=== PATIENT | female | born 1975 | race Caucasian/White ===

== ENCOUNTER 2020-10-30 13:53 | Outpatient (REF) | payer MEDICARE, MEDICAID, SELFPAY ==
--- NOTE | 2020-10-30 13:58 | MM_ITS ---
EXAMINATION: MM SCREENING DIGITAL BREAST TOMOSYNTHESIS, BILATERAL CLINICAL INFORMATION: Screening. Asymptomatic. The lifetime risk of breast cancer based on the Tyrer-Cuzick Model is 10%. COMPARISON: Mammography: 08/21/2019, 07/22/2018, 06/25/2017 (baseline); ultrasound left breast 07/03/2017 TECHNIQUE: Digital breast tomosynthesis is performed in both the craniocaudal and mediolateral oblique views along with computer-aided detection (CAD). Synthesized 2D images are generated from the tomosynthesis. FINDINGS: The breasts are heterogeneously dense, which may obscure small masses (ACR BI-RADS breast composition Category c). There are no significant masses, abnormal calcifications, or other abnormalities. There is fine fibronodular parenchymal pattern similar to prior exams. No significant changes from prior studies. MM/MM tomosynthesis screening BI IMPRESSION: No mammographic evidence of malignancy. ASSESSMENT: BI-RADS 1: Negative RECOMMENDATION: Routine annual mammography screening. This patient's information was entered into a reminder system with a target due date for their next mammogram.
== END 2020-10-30 13:54 | disposition home or self-care (01) ==
LOC: HO.MAMMO 13:53
PROVIDERS: PCP Internal Medicine; Visit Provider Internal Medicine
DX: Z12.31 Encounter for screening mammogram for malignant neoplasm of breast (principal)
CPT/HCPCS: 77063; 77067

== ENCOUNTER 2020-12-15 06:34 | Emergency (ER) | payer MEDICARE, MEDICAID, SELFPAY ==
--- NOTE | ~2020-12-15 | XR_ITS ---
EXAMINATION: XR LUMBOSACRAL SPINE CLINICAL INFORMATION: Back pain COMPARISON: None TECHNIQUE: Three views of the lumbosacral spine. FINDINGS: Bone alignment is normal. No fracture or dislocation is seen. Disc spaces are normal. There is lower lumbar spine facet arthritis. XR/XR lumbar spine 2-3V IMPRESSION: Lower lumbar spine facet arthritis.
--- NOTE | ~2020-12-15 | CT_ITS ---
EXAMINATION: CT HEAD WITHOUT CONTRAST CLINICAL INFORMATION: Headache and dizziness COMPARISON: MRI of February 19, 2019 TECHNIQUE: Contiguous axial imaging was performed from the skull base to vertex without intravenous administration of contrast. This CT examination was performed using dose optimization techniques as appropriate, variously including the following: *Automated exposure control *Adjustment of mA and/or kV according to patient size (this includes techniques or standardized protocols for targeted exams where dose is matched to indication/reason for exam; i.e. extremities or head) *Use of iterative reconstruction technique DLP: 712 mGy-cm FINDINGS: There is no evidence of acute intracranial hemorrhage or territorial infarction. No abnormal mass effect or midline shift is seen. Murray to white matter differentiation is well preserved. No extra-axial fluid collections are identified. The ventricles are normal in size. There is no abnormal attenuation within the brain parenchyma. The osseous structures and soft tissues are normal. The mastoid air cells and visualized portions of the paranasal sinuses are well aerated. CT/CT head/brain wo con IMPRESSION: No acute intracranial pathology.
[2020-12-15 07:42] VITALS: BP 153/78; PULSE 64; RESP 16; TEMP 36.8; O2SAT 100; BMI 32.0
--- NOTE | 2020-12-15 08:07 | ED_ITS ---
HPI - Headache General Chief Complaint: Headache Stated Complaint: HEADACHE/DIZZINESS Time Seen by Provider: 12/15/20 08:04 Source: patient and family (Mother) Mode of arrival: ambulatory Limitations: no limitations History of Present Illness HPI Narrative: 45 years old female with developmental delay, patient also with known chronic history of headache, patient has been seen by neurologist at [facility] Dr. Powell), patient presented with her mom for headache and dizziness for the past 2 days, mother described it as has been constant, no fever or chills. Records from both [facility] and [facility] requested. Related Data Allergies Allergy/AdvReac Type Severity Reaction Status Date / Time Sulfa (Sulfonamide Allergy Severe HIVES Unverified 07/15/20 15:15 Antibiotics) [SULFA (SULFONAMIDE ANTIBIOTICS)] amoxicillin Allergy Unknown Verified 06/11/14 00:00 potassium [Potassimin] Allergy Unknown Verified 06/11/14 00:00 sulfamethoxazole Allergy Unknown UNKNOWN Unverified 07/15/20 15:15 [From SULFATRIM] trimethoprim [From SULFATRIM] Allergy Unknown UNKNOWN Unverified 07/15/20 15:15 From AUGMENTIN Allergy Severe HIVES Uncoded 07/15/20 15:15 From Augmentin Allergy Severe HIVES Uncoded 07/15/20 15:15 Review of Systems Review of Systems: All other systems are reviewed and are negative Constitutional: Reports as per HPI and Reports no additional constitutional complaints Eyes: Reports as per HPI and Reports no additional eye complaints Reports system reviewed and no additional complaints, except as documented Cardiovascular: Reports as per HPI and Reports no additional cardiovascular complaints Respiratory: Reports as per HPI and Reports no additional respiratory complaints Gastrointestinal: Reports as per HPI and Reports no additional gastrointestinal complaints Genitourinary: Reports no additional female genitourinary complaints Musculoskeletal: Reports no additional musculoskeletal complaints Skin/Breast: Reports system reviewed and no additional complaints, except as docu Psychiatric: Reports no additional psychiatric complaints Endocrine: Reports no additional endocrine complaints Hematologic/Lymphatic: Reports no additional hematologic/lymphatic complaints Allergic/Immunologic: Reports no additional allergic/immunologic complaints Reports system reviewed and no additional complaints, except as documented and Reports Abnormal speech [facility] Past Medical History Medical History Head ache [place] (hard of hearing) Mentally challenged Tourette syndrome Social History Social History Alcohol intake: never Smoking Status: Never smoker Use of substances other than those prescribed or required for medical reasons: No Advance Directives: Yes Advance Directives Information Provided: Yes Advance Directives on File: No Physical Exam Vital Signs: Vital Signs: Last Vital Signs Temp 98.3 F 12/15/20 07:42 Pulse 64 12/15/20 07:42 Resp 16 12/15/20 07:42 BP 153/78 H 12/15/20 07:42 Pulse Ox 100 12/15/20 07:42 Body Mass Index 32.0 Vital signs have been reviewed as appeared to be correct. Blood pressure in the high range. Heart rate normal. Respiration rate normal. Temperature normal. Oxygen saturation normal. Appearance: No acute distress. Head: Normal external exam. Normocephalic. Atraumatic. No Joe signs noted. No raccoon eyes noted Eyes: PERRLA. EOMI. Conjunctiva and sclera normal. Eyelids normal. ENT: TM's Normal. Pharynx normal. Uvula midline. Moist mucous membranes. No trismus noted. No drooling noted. No muffled voice noted. Neck: Normal inspection. Neck supple. FROM. No adenopathy. Thyroid Normal. No meningeal signs. No neck mass noted. CVS: Normal heart rate and rhythm. Heart sound normal. No murmurs noted. Pulses normal throughout. Respiratory: No respiratory distress. Painless inspiration. Breath sounds normal. No wheezes/rales/rhonchi noted. Chest nontender. No accessory muscle usage noted or decreased air movement noted. Abdomen: Soft and nontender. Bowel sounds normal in all 4 quadrants. No distention noted. No organomegaly noted. No visible injury noted. Back: No CVA tenderness. Full range of motion noted. Skin: Skin warm and dry. Normal skin color. Normal skin turgor. No rashes/lesions/lacerations noted. Extremities: No lower extremity edema. Extremities exhibit normal range of motion. Extremities nontender. Neuro: Alert, No motor deficit. No sensory deficit. Reflexes normal. Course Course Course Narrative: Assessment and plan. 45-year-old with developmental delay, chronic headaches, patient has been following with neurologist, she will see another neurologist in [place] for her condition, presented with headache and dizziness, patient improved after IV f luid and IV morphine 1.5 mg. Mother was instructed to follow-up with her neurologist. Records from [facility] was requested still did not hear back from them. At this point will discharge patient to follow-up with PCP/Neurology. MDM - Headache Lab Data Attestation: I reviewed the patient's lab results. Result diagrams: 12/15/20 08:20 12/15/20 08:20 Labs: Lab Results 12/15/20 12/15/20 Range/Units 08:20 08:20 WBC 11.3 H (4.8-10.8) X10*3/uL RBC 3.99 L (4.20-5.50) X10*6/uL Hgb 12.4 (12.0-16.0) g/dl Hct 35.4 L (37-47) % MCV 88.7 (80-98) fL MCH 31.1 (27.0-33.0) pg MCHC 35.0 (31.0-35.0) g/dl RDW 12.2 (11.0-16.0) % Plt Count 341 (160-400) X10*3/uL MPV 8.8 L (9.4-12.3) fL Immature Gran % (Auto) 0.6 H (0.0-0.4) % Neut % (Auto) 75.9 H (45-73) % Lymph % (Auto) 16.4 L (20-40) % [place] % (Auto) 4.9 (2-11) % Eos % (Auto) 1.8 (0-4) % Baso % (Auto) 0.4 (0-2) % Lymph # (Auto) 1.9 (1.2-4.9) X10*3/uL [place] # (Auto) 0.6 (0.1-1.2) X10*3/uL Eos # (Auto) 0.2 (0.0-0.4) X10*3/uL Baso # (Auto) 0.0 (0.0-0.2) X10*3/uL Abs Immat Gran (auto) 0.07 H (0.00-0.03) X10*3/uL Absolute Neuts (auto) 8.6 H (2.0-8.3) X10*3/uL Absolute Nucleated RBC 0.000 (0.0-0.012) X10*3/uL Nucleated RBC % (auto) 0.0 (0.0-0.2) /100WBC Sodium 138 (135-145) mmol/L Potassium 3.9 (3.3-5.1) mmol/L Chloride 105 (96-108) mmol/L Carbon Dioxide 26 (22-29) mmol/L Anion Gap 11 L (12-20) BUN 12 (9-16) mg/dL Creatinine 0.84 (0.5-1.4) mg/dL Estim Creat Clear Calc 83.4 Estimated GFR > 60 Random Glucose 102 (60-115) mg/dL Calcium 8.7 (8.4-10.2) mg/dL Imaging Data CT scan - head: Radiologist's impression: No acute intracranial pathology. Discharge Plan Discharge Clinical Impression: Headache Qualifiers: Headache type: unspecified Headache chronicity pattern: chronic headache Intractability: not intractable Qualified Code(s): R51.9 - Headache, unspecified Patient Disposition: Home, Self-Care Instructions: General Headache (ED) Referrals: Amy Jonas MD [Primary Care Provider] - 2 days
[2020-12-15] MEDS: 0.9 % Sodium Chloride 1,000 ML 999 ML IVCONT (08:21)
[2020-12-15 08:24] LABS: MANUAL DIFF FLAG NO
[2020-12-15] MEDS: Morphine Sulfate 2 MG/ML CARTRIDGE 1 MG IVPUSH (08:25)
[2020-12-15 08:26] LABS: Basophils Percent Auto 0.4 % (0-2); Eosinophils Absolute Auto 0.2 X10*3/uL (0.0-0.4); Eosinophils Percent Auto 1.8 % (0-4); Hematocrit 35.4 % (37-47); Hemoglobin 12.4 g/dl (12.0-16.0); Imm Gran Abs Auto 0.07 X10*3/uL (0.00-0.03); Imm Gran Pct Auto 0.6 % (0.0-0.4); Lymphocytes Absolute Auto 1.9 X10*3/uL (1.2-4.9); Lymphocytes Percent Auto 16.4 % (20-40); Mean Corpuscular Hemoglobin 31.1 pg (27.0-33.0); Mean Corpuscular Volume 88.7 fL (80-98); Mean Platelet Volume 8.8 fL (9.4-12.3); Monocytes Absolute Auto 0.6 X10*3/uL (0.1-1.2); Monocytes Percent Auto 4.9 % (2-11); Neutrophils Absolute Auto 8.6 X10*3/uL (2.0-8.3); Neutrophils Percent Auto 75.9 % (45-73); Platelet Count 341 X10*3/uL (160-400); Red Blood Count 3.99 X10*6/uL (4.20-5.50); Red Cell Distribution Width 12.2 % (11.0-16.0); White Blood Count 11.3 X10*3/uL (4.8-10.8)
[2020-12-15 08:56] LABS: Anion Gap 11 (12-20); Blood Urea Nitrogen 12 mg/dL (9-16); Calcium 8.7 mg/dL (8.4-10.2); Carbon Dioxide 26 mmol/L (22-29); Chloride 105 mmol/L (96-108); Creatinine Clr Calc Pharmacy 83.4; Estimated Glomerular Filt Rate > 60; Glucose Random 102 mg/dL (60-115); Potassium 3.9 mmol/L (3.3-5.1); Sodium 138 mmol/L (135-145)
[2020-12-15] MEDS: Morphine Sulfate 2 MG/ML CARTRIDGE 0.5 MG IVPUSH (11:05)
== END 2020-12-15 11:18 | disposition home or self-care (01) ==
PROVIDERS: Emergency Provider Emergency Medicine; PCP Internal Medicine
DX: R51.9 Headache, unspecified (principal); M54.5 Low back pain; R62.50 Unspecified lack of expected normal physiological development in childhood
CPT/HCPCS: 36415; 70450; 72100; 80048; 85025; 96361; 96374; 96375; 99284; J2270

== ENCOUNTER 2020-12-18 07:41 | Outpatient (REF) | payer MEDICARE, MEDICAID, SELFPAY ==
[2020-12-18 09:23] LABS: Alanine Aminotransferase 13 U/L (0-31); Albumin Level 4.4 g/dL (3.5-5.0); Alkaline Phosphatase 102 U/L (39-117); Anion Gap 12 (12-20); Aspartate Amino Transferase 12 U/L (5-31); Bilirubin Total 0.5 mg/dL (0.0-1.0); Blood Urea Nitrogen 11 mg/dL (9-16); Calcium 9.4 mg/dL (8.4-10.2); Carbon Dioxide 27 mmol/L (22-29); Chloride 105 mmol/L (96-108); Estimated Glomerular Filt Rate > 60; Glucose Random 107 mg/dL (60-115); Potassium 4.5 mmol/L (3.3-5.1); Sodium 139 mmol/L (135-145)
[2020-12-18 09:32] LABS: Thyroid Stimulating Hormone 4.51 uIU/mL (0.32-4.0)
== END 2020-12-18 07:42 | disposition home or self-care (01) ==
LOC: HO.LAB 07:41
PROVIDERS: PCP Internal Medicine; Visit Provider Internal Medicine
DX: E03.8 Other specified hypothyroidism (principal)
CPT/HCPCS: 36415; 80053; 84443

== ENCOUNTER 2020-12-20 16:54 | Emergency (ER) | payer MEDICARE, MEDICAID, SELFPAY ==
--- NOTE | ~2020-12-20 | CT_ITS ---
EXAMINATION: CT ANGIOGRAM OF THE HEAD CT ANGIOGRAM OF THE NECK CLINICAL INFORMATION: Multiple syncopal episodes. COMPARISON: CT scan of the head 12/15/2020. TECHNIQUE: A noncontrast axial CT scan of the head was obtained. Test bolus series followed by intravenous administration 70 mL of Omnipaque 350. Helical imaging was performed in the axial plane from the mediastinum to the skull vertex. A delayed CT scan of the head was obtained. The degree of stenosis is based off NASCET criteria. The data was processed at the electroneurodiagnostic technologist workstation for generation of MIP images. Three-dimensional volume rendered reformatted images were also generated at an offline 3-D workstation. This CT examination was performed using dose optimization techniques as appropriate, variously including the following: *Automated exposure control *Adjustment of mA and/or kV according to patient size (this includes techniques or standardized protocols for targeted exams where dose is matched to indication/reason for exam; i.e. extremities or head) *Use of iterative reconstruction technique DLP: 2481 mGy-cm. FINDINGS: CT Head: There is no evidence of acute intracranial hemorrhage or territorial infarction. No abnormal mass-effect or midline shift is seen. Murray to white matter differentiation is well preserved. No extra-axial fluid collections are identified. There is no abnormal enhancement. The ventricles are normal in size. There is no abnormal attenuation within the brain parenchyma. The osseous structures and soft tissues are normal. The mastoid air cells and visualized portions of the paranasal sinuses are well-aerated. CTA Neck: There is a common origin of the left common carotid and brachiocephalic arteries, which is a normal variant. The great vessels of the neck are widely patent. The subclavian arteries appear normal bilaterally. The common carotid arteries have normal caliber. However, there is severe swallowing motion artifact in the region of the carotid bifurcations bilaterally. Distal to the artifact level of the internal carotid arteries are patent bilaterally. The origins of both vertebral arteries are well seen and appear normal. Both vertebral arteries are widely patent and demonstrate good opacification throughout their cervical course. The vertebral arteries are codominant. Nonvascular: The lung blanco are well-expanded bilaterally. The thyroid gland appears normal. There is no cervical lymphadenopathy. There is mild spondylosis at C4-C5, C5-C6 and C6-C7. CTA Head: In the anterior circulation, the distal internal carotid arteries within the neck appear normal. The intracranial internal carotid arteries and their bifurcations appear normal. The middle and anterior cerebral arteries bilaterally demonstrate normal caliber with no evidence of focal stenosis, aneurysm or vascular malformation. There is normal arborization of the middle cerebral artery branches. The anterior communicating artery is normal. In the posterior circulation, the left vertebral artery is dominant. The vertebral arteries intradurally have normal caliber. The basilar artery appears normal. The posterior cerebral arteries have normal caliber. The venous sinuses opacify normally. CT/CT angio head neck IMPRESSION: CT head and neck: 1. There are no acute bleeds or territorial infarcts. 2. There are no masses or areas of abnormal enhancement. 2. The lung blanco are well-expanded. There is spondylosis in the cervical spine. CTA head and neck: 1. Evaluation of the carotid bifurcations is markedly suboptimal due to swallowing motion artifact. Elsewhere, the arterial structures in the neck appear normal. 2. Intracranially there are no focal stenoses, aneurysms or vascular malformations.
[2020-12-20 17:02] VITALS: BP 148/72; BP 155/75; PULSE 80; PULSE 88; RESP 18; TEMP 36.7; O2SAT 100; O2SAT 98; BMI 32.0
--- NOTE | 2020-12-20 17:17 | ED.SYNCOPE ---
HPI - Syncope General Chief Complaint: Syncope Stated Complaint: syncope Mode of arrival: ambulatory Limitations: other (Cognitive impairment) History of Present Illness HPI narrative: 45 years old female with developmental delay, chronic history of headache seen by neurologist at [facility] Dr. Powell, presents for a syncopal episode. This is the 2nd syncopal episode this week. Mother states that daughter was getting something out of the kitchen pantry, then sat down on the floor, her mother then left the room and when she returned back to the kitchen patient was laying on the floor. Mom feels that this was a syncopal episode, daughter cannot answer any questions secondary to developmental delay. Onset (ago): hour(s) (Within the hour arrival) Witnessed: No Context: at rest Injuries sustained associated with event: none Current symptoms: none and back to baseline History: previous syncopal episode Treatments prior to arrival: none Related Data Allergies Allergy/AdvReac Type Severity Reaction Status Date / Time Sulfa (Sulfonamide Allergy Severe HIVES Unverified 07/15/20 15:15 Antibiotics) [SULFA (SULFONAMIDE ANTIBIOTICS)] amoxicillin Allergy Unknown Verified 06/11/14 00:00 potassium [Potassimin] Allergy Unknown Verified 06/11/14 00:00 sulfamethoxazole Allergy Unknown UNKNOWN Unverified 07/15/20 15:15 [From SULFATRIM] trimethoprim [From SULFATRIM] Allergy Unknown UNKNOWN Unverified 07/15/20 15:15 From AUGMENTIN Allergy Severe HIVES Uncoded 07/15/20 15:15 From Augmentin Allergy Severe HIVES Uncoded 07/15/20 15:15 Review of Systems Review of Systems: Yes Unobtainable due to mental status PMFSH Past Medical History Attestation statement: The following information was validated with the patient. Source: old records reviewed Medical History Head ache [place] (hard of hearing) Mentally challenged Tourette syndrome Social History Social History Alcohol intake: never Smoking Status: Never smoker Advance Directives: No Advance Directives Information Provided: No Physical Exam Vital Signs: Vital Signs: Last Vital Signs Temp 98.1 F 12/20/20 17:02 Pulse 88 12/20/20 17:02 Resp 18 12/20/20 17:02 BP 155/75 H 12/20/20 17:02 Pulse Ox 100 12/20/20 17:02 Body Mass Index 32.0 Appearance: Alert. Oriented X3. No acute distress. Eyes: Pupils equal, round and reactive to light. ENT: Pharynx normal. Neck: Normal inspection. Neck supple. CVS: Normal heart rate and rhythm. Pulses normal. Respiratory: No respiratory distress. Breath sounds normal. Abdomen: Soft and nontender. Skin: Skin warm and dry. Normal skin color. Normal skin turgor. Extremities: No lower extremity edema. Neuro: No motor deficit. No sensory deficit. Gait upward but well-balanced Course Course Course Narrative: 45-year-old female presents with her 2nd episode of syncope this week. Had a CT scan on 12/15/20 with normal findings, full workup and labs were unremarkable. Patient does have chronic headaches, chronic scalp pain and is being followed by a neurologist at [facility]. The last 2 discharge instructions strongly suggested follow-up with Neurology, pending appointment later this week. This time as patient was an unwitnessed [id number] seizure activity will order CT A of head and neck as dry CT scan was negative. Will order CBC, Chem 7 and urinalysis. Labs are unremarkable. Urinalysis is negative. Plan of care is for patient to continue to keep appointment with outpatient Neurology. Detailed description of discharge instructions with mother. Verbalized understanding of and agrees to plan of care discharge home. MDM - Syncope MDM Narrative Medical decision making narrative: Seizure activity, fall Differential Diagnosis Differential diagnosis: Likely syncope due to orthostatic hypotension and dehydration Medical Records Attestation: I reviewed the patient's medical records. Lab Data Attestation: I reviewed the patient's lab results. Result diagrams: 12/20/20 17:40 12/20/20 17:40 Labs: Lab Results 12/20/20 12/20/20 12/20/20 Range/Units 17:40 17:40 17:40 WBC 12.4 H (4.8-10.8) X10*3/uL RBC 3.79 L (4.20-5.50) X10*6/uL Hgb 12.1 (12.0-16.0) g/dl Hct 33.8 L (37-47) % MCV 89.2 (80-98) fL MCH 31.9 (27.0-33.0) pg MCHC 35.8 H (31.0-35.0) g/dl RDW 12.3 (11.0-16.0) % Plt Count 350 (160-400) X10*3/uL MPV 8.9 L (9.4-12.3) fL Immature Gran % (Auto) 0.7 H (0.0-0.4) % Neut % (Auto) 70.9 (45-73) % Lymph % (Auto) 20.1 (20-40) % [place] % (Auto) 6.0 (2-11) % Eos % (Auto) 1.8 (0-4) % Baso % (Auto) 0.5 (0-2) % Lymph # (Auto) 2.5 (1.2-4.9) X10*3/uL [place] # (Auto) 0.8 (0.1-1.2) X10*3/uL Eos # (Auto) 0.2 (0.0-0.4) X10*3/uL Baso # (Auto) 0.1 (0.0-0.2) X10*3/uL Abs Immat Gran (auto) 0.09 H (0.00-0.03) X10*3/uL Absolute Neuts (auto) 8.8 H (2.0-8.3) X10*3/uL Absolute Nucleated RBC 0.000 (0.0-0.012) X10*3/uL Nucleated RBC % (auto) 0.0 (0.0-0.2) /100WBC Sodium 140 (135-145) mmol/L Potassium 4.6 (3.3-5.1) mmol/L Chloride 108 (96-108) mmol/L Carbon Dioxide 23 (22-29) mmol/L Anion Gap 14 (12-20) BUN 14 (9-16) mg/dL Creatinine 0.83 (0.5-1.4) mg/dL Estim Creat Clear Calc 84.3 Estimated GFR > 60 Random Glucose 116 H (60-115) mg/dL Calcium 9.0 (8.4-10.2) mg/dL Magnesium 2.0 (1.6-2.6) mg/dL Troponin I High Sens < 3.5 (<3.5-17.0) ng/L Urine Color Urine Appearance Urine pH (5.0-8.0) Ur Specific [place] (1.005-1.025) Urine Protein (NEG-TRACE) MG/DL Urine Glucose (UA) (NEG) MG/DL Urine Ketones (NEG) MG/DL Urine Blood (NEG) Urine Nitrite (NEG) Ur Leukocyte Esterase (NEG) Coronavirus (PCR) (Negative) Influenza Type A (PCR) (Negative) Influenza Type B (PCR) (Negative) RSV RNA Qual (PCR) (Negative) 12/20/20 12/20/20 Range/Units 17:40 20:16 WBC (4.8-10.8) X10*3/uL RBC (4.20-5.50) X10*6/uL Hgb (12.0-16.0) g/dl Hct (37-47) % MCV (80-98) fL MCH (27.0-33.0) pg MCHC (31.0-35.0) g/dl RDW (11.0-16.0) % Plt Count (160-400) X10*3/uL MPV (9.4-12.3) fL Immature Gran % (Auto) (0.0-0.4) % Neut % (Auto) (45-73) % Lymph % (Auto) (20-40) % [place] % (Auto) (2-11) % Eos % (Auto) (0-4) % Baso % (Auto) (0-2) % Lymph # (Auto) (1.2-4.9) X10*3/uL [place] # (Auto) (0.1-1.2) X10*3/uL Eos # (Auto) (0.0-0.4) X10*3/uL Baso # (Auto) (0.0-0.2) X10*3/uL Abs Immat Gran (auto) (0.00-0.03) X10*3/uL Absolute Neuts (auto) (2.0-8.3) X10*3/uL Absolute Nucleated RBC (0.0-0.012) X10*3/uL Nucleated RBC % (auto) (0.0-0.2) /100WBC Sodium (135-145) mmol/L Potassium (3.3-5.1) mmol/L Chloride (96-108) mmol/L Carbon Dioxide (22-29) mmol/L Anion Gap (12-20) BUN (9-16) mg/dL Creatinine (0.5-1.4) mg/dL Estim Creat Clear Calc Estimated GFR Random Glucose (60-115) mg/dL Calcium (8.4-10.2) mg/dL Magnesium (1.6-2.6) mg/dL Troponin I High Sens (<3.5-17.0) ng/L Urine Color YELLOW Urine Appearance CLEAR Urine pH 6.0 (5.0-8.0) Ur Specific [place] <= 1.005 (1.005-1.025) Urine Protein NEG (NEG-TRACE) MG/DL Urine Glucose (UA) NEG (NEG) MG/DL Urine Ketones NEG (NEG) MG/DL Urine Blood NEG (NEG) Urine Nitrite NEG (NEG) Ur Leukocyte Esterase NEG (NEG) Coronavirus (PCR) NEGATIVE (Negative) Influenza Type A (PCR) NEGATIVE (Negative) Influenza Type B (PCR) NEGATIVE (Negative) RSV RNA Qual (PCR) NEGATIVE (Negative) Imaging Data CTA head and neck: Attestation: I personally reviewed and interpreted this imaging study as follows: Radiologist's impression: EXAMINATION: CT ANGIOGRAM OF THE HEAD CT ANGIOGRAM OF THE NECK CLINICAL INFORMATION: Multiple syncopal episodes. COMPARISON: CT scan of the head 12/15/2020. TECHNIQUE: A noncontrast axial CT scan of the head was obtained. Test bolus series followed by intravenous administration 70 mL of Omnipaque 350. Helical imaging was performed in the axial plane from the mediastinum to the skull vertex. A delayed CT scan of the head was obtained. The degree of stenosis is based off NASCET criteria. The data was processed at the electroneurodiagnostic technologist workstation for generation of MIP images. Three-dimensional volume rendered reformatted images were also generated at an offline 3-D workstation. This CT examination was performed using dose optimization techniques as appropriate, variously including the following: *Automated exposure control *Adjustment of mA and/or kV according to patient size (this includes techniques or standardized protocols for targeted exams where dose is matched to indication/reason for exam; i.e. extremities or head) *Use of iterative reconstruction technique DLP: 2481 mGy-cm. FINDINGS: CT Head: There is no evidence of acute intracranial hemorrhage or territorial infarction. No abnormal mass-effect or midline shift is seen. Murray to white matter differentiation is well preserved. No extra-axial fluid collections are identified. There is no abnormal enhancement. The ventricles are normal in size. There is no abnormal attenuation within the brain parenchyma. The osseous structures and soft tissues are normal. The mastoid air cells and visualized portions of the paranasal sinuses are well-aerated. CTA Neck: There is a common origin of the left common carotid and brachiocephalic arteries, which is a normal variant. The great vessels of the neck are widely patent. The subclavian arteries appear normal bilaterally. The common carotid arteries have normal caliber. However, there is severe swallowing motion artifact in the region of the carotid bifurcations bilaterally. Distal to the artifact level of the internal carotid arteries are patent bilaterally. The origins of both vertebral arteries are well seen and appear normal. Both vertebral arteries are widely patent and demonstrate good opacification throughout their cervical course. The vertebral arteries are codominant. Nonvascular: The lung blanco are well-expanded bilaterally. The thyroid gland appears normal. There is no cervical lymphadenopathy. There is mild spondylosis at C4-C5, C5-C6 and C6-C7. CTA Head: In the anterior circulation, the distal internal carotid arteries within the neck appear normal. The intracranial internal carotid arteries and their bifurcations appear normal. The middle and anterior cerebral arteries bilaterally demonstrate normal caliber with no evidence of focal stenosis, aneurysm or vascular malformation. There is normal arborization of the middle cerebral artery branches. The anterior communicating artery is normal. In the posterior circulation, the left vertebral artery is dominant. The vertebral arteries intradurally have normal caliber. The basilar artery appears normal. The posterior cerebral arteries have normal caliber. The venous sinuses opacify normally. CT/CT angio head neck IMPRESSION: CT head and neck: 1. There are no acute bleeds or territorial infarcts. 2. There are no masses or areas of abnormal enhancement. 2. The lung blanco are well-expanded. There is spondylosis in the cervical spine. CTA head and neck: 1. Evaluation of the carotid bifurcations is markedly suboptimal due to swallowing motion artifact. Elsewhere, the arterial structures in the neck appear normal. 2. Intracranially there are no focal stenoses, aneurysms or vascular malformations. Discharge Plan Discharge Clinical Impression: Vasovagal syncope Patient Disposition: Home, Self-Care Instructions: Syncope (ED) Additional Instructions: Your daughter was evaluated for a syncopal episode. CT scan with angiography to the head and neck are negative for acute findings. Please bring the report to your next neurologist appointment. Lab values are unremarkable. Urinalysis is pending. I will call you with the results. If you need an antibiotic I will prescribe one for you. Please have a daughter drink plenty of fluids. Please call your neurologist and request a sooner appointment. This is her 2nd visit to the emergency department in the past week for similar complaints. Thank you for choosing this emergency department for evaluation. Please follow-up with primary care physician as needed. Return to the emergency department for any new, concerning, or worsening symptoms. Interventions: ED Discharge Assessment Last Done: 12/20/20 20:23 Discharge Date/Time: 12/20/20 20:24
[2020-12-20 17:52] LABS: MANUAL DIFF FLAG NO
[2020-12-20 17:54] LABS: Basophils Absolute Auto 0.1 X10*3/uL (0.0-0.2); Basophils Percent Auto 0.5 % (0-2); Eosinophils Absolute Auto 0.2 X10*3/uL (0.0-0.4); Eosinophils Percent Auto 1.8 % (0-4); Hematocrit 33.8 % (37-47); Hemoglobin 12.1 g/dl (12.0-16.0); Imm Gran Abs Auto 0.09 X10*3/uL (0.00-0.03); Imm Gran Pct Auto 0.7 % (0.0-0.4); Lymphocytes Absolute Auto 2.5 X10*3/uL (1.2-4.9); Lymphocytes Percent Auto 20.1 % (20-40); Mean Corpuscular HGB Conc 35.8 g/dl (31.0-35.0); Mean Corpuscular Hemoglobin 31.9 pg (27.0-33.0); Mean Corpuscular Volume 89.2 fL (80-98); Mean Platelet Volume 8.9 fL (9.4-12.3); Monocytes Absolute Auto 0.8 X10*3/uL (0.1-1.2); Neutrophils Absolute Auto 8.8 X10*3/uL (2.0-8.3); Neutrophils Percent Auto 70.9 % (45-73); Platelet Count 350 X10*3/uL (160-400); Red Blood Count 3.79 X10*6/uL (4.20-5.50); Red Cell Distribution Width 12.3 % (11.0-16.0); White Blood Count 12.4 X10*3/uL (4.8-10.8)
[2020-12-20 18:22] LABS: Anion Gap 14 (12-20); Blood Urea Nitrogen 14 mg/dL (9-16); Carbon Dioxide 23 mmol/L (22-29); Chloride 108 mmol/L (96-108); Creatinine Clr Calc Pharmacy 84.3; Estimated Glomerular Filt Rate > 60; Glucose Random 116 mg/dL (60-115); Potassium 4.6 mmol/L (3.3-5.1); Sodium 140 mmol/L (135-145)
[2020-12-20 18:28] LABS: Troponin-I High Sensitivity < 3.5 ng/L (<3.5-17.0)
[2020-12-20 18:33] LABS: Influenza A PCR NEGATIVE (Negative); Influenza B PCR NEGATIVE (Negative); Resp Syncy Virus RNA Qual PCR NEGATIVE (Negative); SARS COV2 PCR INHOUSE NEGATIVE (Negative)
[2020-12-20] MEDS: iohexoL 350 MG/ML 100 ML INFUS..BTL IV (19:28)
--- NOTE | 2020-12-20 19:50 | PC.NURSE ---
PT RESTING IN STRETCHER IN NAD. PT RETURNS FROM CT AT THIS TIME. WILL CONTINUE TO MONITOR PT.
--- NOTE | 2020-12-20 20:17 | PC.NURSE ---
urine sent to lab. IV removed intact. Pt has d/c instructions from [facility].
[2020-12-20 20:30] LABS: Glucose Urine UA NEG (NEG); Leukocyte Esterase Urine NEG (NEG); Nitrite Urine NEG (NEG); Specific Gravity - Urine <= 1.005 (1.005-1.025); Urine Blood NEG (NEG); Urine Ketones NEG (NEG); Urine Protein NEG (NEG-TRACE)
[2020-12-20 20:36] LABS: Appearance Urine CLEAR; Color Urine YELLOW
== END 2020-12-20 20:24 | disposition home or self-care (01) ==
PROVIDERS: Nurse Practitioner Family; Emergency Provider Internal Medicine; PCP Internal Medicine
DX: R55 Syncope and collapse (principal); G31.84 Mild cognitive impairment of uncertain or unknown etiology; R51.9 Headache, unspecified; F95.2 Tourette's disorder; Z20.822 Contact with and (suspected) exposure to COVID-19
CPT/HCPCS: 0241U; 36415; 70496; 70498; 80048; 81003; 83735; 84484; 85025; 99283; Q9967

== ENCOUNTER 2021-07-16 08:00 | Outpatient (REF) | payer MEDICARE, MEDICAID, SELFPAY ==
[2021-07-16 10:21] LABS: Thyroid Stimulating Hormone 3.75 uIU/mL (0.32-4.0)
[2021-07-16 10:25] LABS: Alanine Aminotransferase 20 U/L (0-31); Albumin Level 4.1 g/dL (3.5-5.0); Alkaline Phosphatase 94 U/L (39-117); Anion Gap 11 (12-20); Aspartate Amino Transferase 17 U/L (5-31); Bilirubin Total 0.4 mg/dL (0.0-1.0); Blood Urea Nitrogen 13 mg/dL (9-16); Calcium 8.8 mg/dL (8.4-10.2); Carbon Dioxide 23 mmol/L (22-29); Chloride 108 mmol/L (96-108); Estimated Glomerular Filt Rate > 60; Glucose Random 93 mg/dL (60-115); Sodium 138 mmol/L (135-145); Total Protein 6.6 g/dL (6.5-8.0)
== END 2021-07-16 08:01 | disposition home or self-care (01) ==
LOC: HO.LAB 08:00
PROVIDERS: PCP Internal Medicine; Visit Provider Internal Medicine
DX: E03.9 Hypothyroidism, unspecified (principal); I10 Essential (primary) hypertension; R63.4 Abnormal weight loss; R73.01 Impaired fasting glucose
CPT/HCPCS: 36415; 80053; 84443

== ENCOUNTER → 2021-11-23 14:21 | Outpatient (BNVA) | payer MEDICARE, MEDICAID, SELFPAY | PROVIDERS: PCP Internal Medicine; Visit Provider Psychiatry & Neurology Neurology | DX: F95.2 Tourette's disorder (principal); G43.709 Chronic migraine without aura, not intractable, without status migrainosus; G23.0 Hallervorden-Spatz disease | CPT/HCPCS: 64615; 99211 ==

== ENCOUNTER 2021-12-05 16:02 | Outpatient (REF) | payer MEDICARE, MEDICAID, SELFPAY ==
--- NOTE | ~2021-12-05 | MM_ITS ---
EXAMINATION: MM SCREENING DIGITAL BREAST TOMOSYNTHESIS, BILATERAL CLINICAL INFORMATION: Screening. Asymptomatic. The lifetime risk of breast cancer based on the Tyrer-Cuzick Model is 11%. COMPARISON: Mammography: 10/30/2020, 08/21/2019, 07/22/2018 TECHNIQUE: Digital breast tomosynthesis is performed in both the craniocaudal and mediolateral oblique views along with computer-aided detection (CAD). Synthesized 2D images are generated from the tomosynthesis. FINDINGS: The breasts are heterogeneously dense, which may obscure small masses (ACR BI-RADS breast composition Category c). There are no significant masses, abnormal calcifications, or other abnormalities. Fibronodular parenchymal pattern is similar to prior studies. No developing density or interval mass or architectural abnormality. Skin contours are smooth. Axilla similar to previous exam. MM/MM tomosynthesis screening BI IMPRESSION: No mammographic evidence of malignancy. ASSESSMENT: BI-RADS 2: Benign RECOMMENDATION: Routine annual mammography screening. This patient's information was entered into a reminder system with a target due date for their next mammogram.
== END 2021-12-05 16:03 | disposition home or self-care (01) ==
LOC: HO.MAMMO 16:02
PROVIDERS: PCP Internal Medicine; Visit Provider Internal Medicine
DX: Z12.31 Encounter for screening mammogram for malignant neoplasm of breast (principal)
CPT/HCPCS: 77063; 77067

== ENCOUNTER 2022-01-14 07:49 | Outpatient (REF) | payer MEDICARE, MEDICAID, SELFPAY ==
[2022-01-14 09:16] LABS: Alanine Aminotransferase 16 U/L (0-31); Albumin Level 4.3 g/dL (3.5-5.0); Alkaline Phosphatase 99 U/L (39-117); Anion Gap 13 (12-20); Aspartate Amino Transferase 15 U/L (5-31); Bilirubin Total 0.4 mg/dL (0.0-1.0); Blood Urea Nitrogen 13 mg/dL (9-16); Calcium 9.5 mg/dL (8.4-10.2); Carbon Dioxide 23 mmol/L (22-29); Chloride 107 mmol/L (96-108); Cholesterol 222 mg/dL; Estimated Glomerular Filt Rate > 60; Glucose Random 109 mg/dL (60-115); HDL Cholesterol 42 mg/dL; LDL Cholesterol Calculated 141 mg/dl; Potassium 4.3 mmol/L (3.3-5.1); Sodium 139 mmol/L (135-145); Triglycerides 196 mg/dL
[2022-01-14 09:36] LABS: Thyroid Stimulating Hormone 4.24 uIU/mL (0.32-4.0)
== END 2022-01-14 07:50 | disposition home or self-care (01) ==
LOC: HO.LAB 07:49
PROVIDERS: PCP Internal Medicine; Visit Provider Internal Medicine
DX: E03.9 Hypothyroidism, unspecified (principal); F70 Mild intellectual disabilities; F95.2 Tourette's disorder; Q16.9 Congenital malformation of ear causing impairment of hearing, unspecified
CPT/HCPCS: 36415; 80053; 80061; 84443

== ENCOUNTER → 2022-03-09 14:22 | Outpatient (BNVA) | payer MEDICARE, MEDICAID, SELFPAY | PROVIDERS: PCP Internal Medicine; Visit Provider Psychiatry & Neurology Neurology | DX: G43.709 Chronic migraine without aura, not intractable, without status migrainosus (principal); G23.0 Hallervorden-Spatz disease; F95.2 Tourette's disorder | CPT/HCPCS: 64615; 99211; J0585 ==

== ENCOUNTER → 2022-06-14 13:12 | Outpatient (BNVA) | payer MEDICARE, MEDICAID, SELFPAY | PROVIDERS: PCP Internal Medicine; Visit Provider Psychiatry & Neurology Neurology | DX: G43.119 Migraine with aura, intractable, without status migrainosus (principal); G23.0 Hallervorden-Spatz disease; F95.2 Tourette's disorder | CPT/HCPCS: 64615; 99211; J0585 ==

== ENCOUNTER 2022-07-20 15:03 | Outpatient (REF) | payer MEDICARE, MEDICAID, SELFPAY ==
--- NOTE | ~2022-07-20 | XR_ITS ---
EXAMINATION: XR KNEE, LEFT CLINICAL INFORMATION: Osteoarthritis left knee COMPARISON: None TECHNIQUE: Four views of the left knee. FINDINGS: Osseous alignment is anatomic. There is moderate to severe joint space narrowing in the medial compartment with subchondral sclerosis and spurring. Lateral joint space is relatively well maintained, with some marginal osteophytosis. There is moderate patellofemoral joint space narrowing with associated spurring. Small joint effusion is present. No evidence of acute fracture. XR/XR knee LT 4V IMPRESSION: Tricompartmental degenerative changes, most severe in the medial compartment.
[2022-07-20 15:14] LABS: MANUAL DIFF FLAG NO
[2022-07-20 15:32] LABS: Basophils Absolute Auto 0.1 X10*3/uL (0.0-0.2); Basophils Percent Auto 0.5 % (0-2); Eosinophils Absolute Auto 0.2 X10*3/uL (0.0-0.4); Eosinophils Percent Auto 2.2 % (0-4); Hematocrit 32.7 % (37.0-47.0); Hemoglobin 11.4 g/dl (12.0-16.0); Imm Gran Abs Auto 0.05 X10*3/uL (0.00-0.03); Imm Gran Pct Auto 0.5 % (0.0-0.4); Lymphocytes Absolute Auto 2.3 X10*3/uL (1.2-4.9); Lymphocytes Percent Auto 21.8 % (20-40); Mean Corpuscular HGB Conc 34.9 g/dl (31.0-35.0); Mean Corpuscular Hemoglobin 30.2 pg (27.0-33.0); Mean Corpuscular Volume 86.5 fL (80.0-98.0); Mean Platelet Volume 8.9 fL (9.4-12.3); Monocytes Absolute Auto 0.6 X10*3/uL (0.1-1.2); Monocytes Percent Auto 5.5 % (2-11); Neutrophils Absolute Auto 7.3 x10*3/uL (2.0-8.3); Neutrophils Percent Auto 69.5 % (45-73); Platelet Count 375 X10*3/uL (160-400); Red Blood Count 3.78 X10*6/uL (4.20-5.50); Red Cell Distribution Width 12.5 % (11.0-16.0); White Blood Count 10.5 X10*3/uL (4.8-10.8)
[2022-07-20 15:51] LABS: Alanine Aminotransferase 17 U/L (0-31); Albumin Level 4.3 g/dL (3.5-5.0); Alkaline Phosphatase 96 U/L (39-117); Anion Gap 13 (12-20); Aspartate Amino Transferase 19 U/L (5-31); Bilirubin Total 0.3 mg/dL (0.0-1.0); Blood Urea Nitrogen 15 mg/dL (9-16); Calcium 8.8 mg/dL (8.4-10.2); Carbon Dioxide 23 mmol/L (22-29); Chloride 107 mmol/L (96-108); Cholesterol 202 mg/dL; Estimated Glomerular Filt Rate > 60; Glucose Random 101 mg/dL (60-115); HDL Cholesterol 41 mg/dL; LDL Cholesterol Calculated 131 mg/dl; Potassium 4.1 mmol/L (3.3-5.1); Sodium 139 mmol/L (135-145); Total Protein 6.9 g/dL (6.5-8.0); Triglycerides 150 mg/dL
[2022-07-20 16:10] LABS: Thyroid Stimulating Hormone 2.98 uIU/mL (0.32-4.0)
== END 2022-07-20 15:04 | disposition home or self-care (01) ==
LOC: HO.LAB 15:03
PROVIDERS: Visit Provider Internal Medicine
DX: M17.12 Unilateral primary osteoarthritis, left knee (principal); E03.9 Hypothyroidism, unspecified; E78.2 Mixed hyperlipidemia; F70 Mild intellectual disabilities; F95.2 Tourette's disorder
CPT/HCPCS: 36415; 73564; 80053; 80061; 84443; 85025

== ENCOUNTER → 2022-08-21 14:03 | Outpatient (BNVA) | payer MEDICARE, MEDICAID, SELFPAY | PROVIDERS: PCP Internal Medicine; Visit Provider Internal Medicine | DX: M54.81 Occipital neuralgia (principal) | CPT/HCPCS: 64405; 64450; 99202; J2795; J3300 ==

== ENCOUNTER 2022-09-22 04:36 | Emergency (ER) | payer MEDICARE, MEDICAID, SELFPAY ==
--- NOTE | ~2022-09-22 | CT_ITS ---
EXAMINATION: CT ABDOMEN AND PELVIS WITH CONTRAST CLINICAL INFORMATION: Abdominal pain. COMPARISON: 06/18/2017 and 09/14/2017 TECHNIQUE: Multidetector volumetric images were obtained from the superior aspect of the liver through the pubic symphysis following administration 85 mL of Omnipaque 350 intravenous contrast. Sagittal and coronal reformatted images were obtained on the technologist's workstation. Oral contrast: No This CT examination was performed using dose optimization techniques as appropriate, variously including the following: *Automated exposure control *Adjustment of mA and/or kV according to patient size (this includes techniques or standardized protocols for targeted exams where dose is matched to indication/reason for exam; i.e. extremities or head) *Use of iterative reconstruction technique DLP: 692 mGy-cm FINDINGS: LUNG BASES: Normal. No pulmonary consolidation or pleural effusion. LIVER: The liver has normal size, shape, and attenuation. No evidence of liver mass. GALLBLADDER AND BILIARY TREE: Gallbladder is without radiopaque stones, wall thickening or pericholecystic fluid. No dilated bile ducts. PANCREAS: Normal. No edema, pancreatic ductal dilatation or mass. SPLEEN: Normal. ADRENAL GLANDS: Normal. KIDNEYS AND URETERS: The kidneys have normal size and cortical thickness. No perinephric edema or fluid collection. No urolithiasis or hydroureteronephrosis. BLADDER: Normal. No calculi or wall thickening. BOWEL AND PERITONEUM: Stomach is unremarkable. No dilated bowel loops. No focal bowel wall thickening. The appendix is normal. ABDOMINAL WALL: Unremarkable. VASCULATURE: Unremarkable. LYMPH NODES: Chronic haziness of central mesenteric fat with mesenteric lymph nodes measuring up to 0.7 cm short axis dimension. Findings are consistent with mild mesenteric panniculitis (and have been observed on prior CT exams). No retroperitoneal, iliac or inguinal lymphadenopathy. PELVIC VISCERA: The uterus is normal. There are chronic cystic changes of the ovaries with abutment of cysts in the midline of the pelvis. The main septated cyst in the right adnexal area measures approximately 9 x 7 x 10 cm. This represents significant enlargement since 09/14/2017. However, the right adnexal cyst previously measured up to 11 cm on 06/18/2017. It is somewhat difficult to determine whether the more midline cystic change is part of the right or left adnexa, but is likely of the left adnexa with abutment in the midline. Again noted are thin septations within the cystic left adnexa, and there is significant enlargement of the cyst compared to 09/14/2017. However, note that more prominent septated left adnexal cystic changes were present on 06/18/2017. There is trace free fluid of the pelvis/left paracolic gutter. MUSCULOSKELETAL: No acute or suspicious osseous abnormality. CT/CT abdomen pelvis w IV con IMPRESSION: * No acute imaging abnormalities along the gastrointestinal or genitourinary tract. * There are prominent, thinly septated cysts of the right and left adnexa along with trace free fluid in the pelvis. Interestingly, prominent, septated cysts were also observed on 06/18/2017 but subsequently significantly decreased in size on 09/14/2017. No interval development of any significantly thickened septations or mural nodularity. These might represent serous cystadenomas involving the ovaries. If not already performed, recommend consultation with the gynecology-oncology service to determine the most appropriate management. If the patient has significant pelvic pain and fever, then this imaging examination would not exclude any superimposed pelvic inflammatory disease. * Chronic mild mesenteric panniculitis.
[2022-09-22 04:47] VITALS: BP 162/95; PULSE 97; RESP 16; TEMP 37.1; O2SAT 100; BMI 31.1
[2022-09-22 05:12] LABS: MANUAL DIFF FLAG NO
[2022-09-22 05:13] LABS: Basophils Percent Auto 0.2 % (0-2); Eosinophils Percent Auto 0.2 % (0-4); Hematocrit 36.8 % (37.0-47.0); Hemoglobin 12.7 g/dl (12.0-16.0); Imm Gran Abs Auto 0.12 X10*3/uL (0.00-0.03); Imm Gran Pct Auto 0.7 % (0.0-0.4); Lymphocytes Absolute Auto 1.3 X10*3/uL (1.2-4.9); Lymphocytes Percent Auto 7.5 % (20-40); Mean Corpuscular HGB Conc 34.5 g/dl (31.0-35.0); Mean Corpuscular Hemoglobin 30.2 pg (27.0-33.0); Mean Corpuscular Volume 87.4 fL (80.0-98.0); Mean Platelet Volume 8.4 fL (9.4-12.3); Monocytes Absolute Auto 0.6 X10*3/uL (0.1-1.2); Monocytes Percent Auto 3.6 % (2-11); Neutrophils Absolute Auto 15.2 x10*3/uL (2.0-8.3); Neutrophils Percent Auto 87.8 % (45-73); Platelet Count 420 X10*3/uL (160-400); Red Blood Count 4.21 X10*6/uL (4.20-5.50); Red Cell Distribution Width 12.5 % (11.0-16.0); White Blood Count 17.3 X10*3/uL (4.8-10.8)
--- OUTSIDE RECORDS SUMMARY | 2022-09-22 05:20 | XMS_ITS | Continuity of Care Document ---
:1975 Author Organization [facility] [address] [place] [address]- Care Team Providers Name Role Phone Amy Jonas MD Primary Care Physician [place] [facility] [place]20/22 - 02/19/22 [facility] [address] [place] [address] Drive [address] [place], [place] [address] Attending Physician: Marcia Smith Admitting Physician: AdmtrMarcia Referring Physician: Admtr, ArEmanuel Allergies, Adverse Reactions, Alerts Substance Reaction Severity Status sulfa drugs hives Active Augmentin hives Active Medications acetaminophen-butalbital 300 mg-50 mg oral capsule By Mouth, Every 4 hours, 0 Refills, Maintenance, 04/10/19 10:11:11 EDT Start Date: 04/10/19 Status: Orderedacetaminophen-HYDROcodone 325 mg-5 mg oral tablet 1 tablet, By Mouth, Every 6 hours, PRN for pain, 0 Refills, Maintenance, 04/10/19 10:08:55 EDT, Tablet Start Date: 04/10/19 Status: OrderedApri 0.15 mg-0.03 mg oral tablet See Instructions, 1 active tablet daily, take 21 days of active tablets then skip placebos and startthe next pack (continuous use), # 84 tablet, 3 Refills, Maintenance, 08/03/17 10:41:20, 1 active tablet daily, take 21 days of active tablets then sk... Start Date: 08/03/17 Status: Orderedbaclofen 10 mg oral tablet 5 mg, 0.5, tablet, By Mouth, 3 times a day, # 30 tablet, Refills 0, Maintenance, 04/10/19 10:10:29 EDT Start Date: 04/10/19 Status: Orderedclonidine 0.1 mg oral tablet 2 tablet = 0.2 mg, By Mouth, 2 times a day, # 120 tablet, 4 Refills, Maintenance Start Date: 09/05/12 Status: OrderedcloNIDine 0.2 mg oral tablet 0.2 mg, 1, tablet, By Mouth, 2 times a day, Refills 0, Maintenance, 04/10/19 10:11:28 EDT Start Date: 04/10/19 Status: Orderedgabapentin 100 mg oral capsule 100 mg, 1, capsule, By Mouth, 3 times a day, Refills 0, Maintenance, 04/10/19 10:09:54 EDT Start Date: 04/10/19 Status: Orderedhaloperidol 0.5 mg oral tablet See Instructions, 2 tablet By Mouth am 1 tab noon and 2 tabs pm, # 150 tablet, 6 Refills, Maintenance Start Date: 05/03/12 Status: OrderedLevothyroxine Tablet Daily, 0 Refills, Maintenance, 06/30/14 8:54:31 Start Date: 06/30/14 Status: Orderednaproxen 500 mg (as sodium) oral tablet, extended release 2 tablet = 1,000 mg, By Mouth, Daily, PRN as needed for arthritis, # 20 tablet, 0 Refills, Maintenance, 04/10/19 10:10:10 EDT, ER Tablet Start Date: 04/10/19 Status: OrderedrisperiDONE 0.5 mg oral tablet 0.5 mg, 1, tablet, By Mouth, 2 times a day, Refills 0, Maintenance, 04/10/19 10:09:32 EDT Start Date: 04/10/19 Status: Orderedtopiramate 25 mg oral capsule 1 capsule = 25 mg, By Mouth, 2 times a day, 0 Refills, Maintenance, 04/10/19 10:11:39 EDT Start Date: 04/10/19 Status: Ordered Problem List Condition Effective Dates Status Health Status Informant Acute pelvic pain, female(Confirmed) Active Bilateral deafness(Confirmed) Active Hirschsprungs disease(Confirmed) Active Adult hypothyroidism(Confirmed) Active Obese class I(Confirmed) Active Social History Social History Type Response Smoking Status Never smoker entered on: 01/27/15 Sex
--- OUTSIDE RECORDS SUMMARY | 2022-09-22 05:20 | XMS_ITS | Continuity of Care Document ---
:1975 Author Organization [facility] [address] [place] [address]- Care Team Providers Name Role Phone Pritesh ARIAS, Amy Acosta Primary Care Physician [place] [facility] [place] 01/20/22 - 01/27/22 [facility] [address] [place], [place] [address] Attending Physician: Edgard Galindo MD Referring Physician: Shaniqua Mata MD Allergies, Adverse Reactions, Alerts Substance Reaction Severity [...] Adult hypothyroidism(Confirmed) Active Obese class I(Confirmed) Active Vital Signs Most recent to oldest [Reference Range]: 1 Height 156.84 cm (01/20/22 2:01 PM) Weight 80.68 kg (01/20/22 2:01 PM) Pulse Rate [55-90 bpm] 84 bpm (01/20/22 2:01 PM) Body Mass Index [18.5-24.99] 32.8 *>HHI* (01/20/22 2:01 PM) Blood Pressure [90-138/55-84 mm Hg] 124/71 mm Hg (01/20/22 2:01 PM) Temperature [96.8-100.4 DegF] 98.6 DegF (01/20/22 2:01 PM) Blood pressure sites Leg, right (01/20/22 2:01 PM) Temperature Route Temporal (01/20/22 2:01 PM) Weight Obtained Via Standing scale (01/20/22 2:01 PM) Social History Social History Type Response Smoking Status Never smoker entered on: 01/27/15 Sex
[2022-09-22 05:33] LABS: COVID-19 Test Negative (Negative); IDNOW Serial# BCCEAD1C
[2022-09-22 05:48] LABS: Alanine Aminotransferase 15 U/L (0-31); Albumin Level 4.3 g/dL (3.5-5.0); Alkaline Phosphatase 105 U/L (39-117); Anion Gap 15 (12-20); Aspartate Amino Transferase 14 U/L (5-31); Bilirubin Direct 0.2 mg/dL (0.0-0.5); Bilirubin Total 0.6 mg/dL (0.0-1.0); Blood Urea Nitrogen 13 mg/dL (9-16); Calcium 9.4 mg/dL (8.4-10.2); Carbon Dioxide 26 mmol/L (22-29); Chloride 102 mmol/L (96-108); Creatinine Clr Calc Pharmacy 89.8; Estimated Glomerular Filt Rate > 60; Glucose Random 108 mg/dL (60-115); Lipase 18 U/L (8-78); Potassium 4.1 mmol/L (3.3-5.1); Sodium 139 mmol/L (135-145)
[2022-09-22 05:52] LABS: Appearance Urine Cloudy; Color Urine Yellow; Glucose Urine UA Negative (Negative); Leukocyte Esterase Urine Moderate (2+) (Negative); Nitrite Urine Negative (Negative); Specific Gravity - Urine <= 1.005 (1.005-1.025); UMIC TRIGGER UACC YES; Urine Blood Moderate (2+) (Negative); Urine Ketones Negative (Negative); Urine Protein Negative (Neg-Trace)
[2022-09-22 06:00] VITALS: BP 139/86; PULSE 99; RESP 18; TEMP 36.9; O2SAT 97
[2022-09-22 06:03] LABS: RBC Urine 0-2 /HPF (0-2)
[2022-09-22 06:56] LABS: Bacteria Urine None Seen (None Seen); Hyaline Casts Urine 0-2 /LPF (0-2); WBC Urine 0-5 /HPF (0-5)
[2022-09-22 07:17] VITALS: BP 135/87; PULSE 94; RESP 14; TEMP 36.8; O2SAT 97
--- NOTE | 2022-09-22 07:59 | ED.GENADULT ---
HPI - General Adult General Chief complaint: Abdominal Pain Stated complaint: n/v, stomach pain Time Seen by Provider: 09/22/22 07:58 Source: patient Mode of arrival: ambulatory Limitations: physical limitation (hearing impairment) and other (developmental delay ) History of Present Illness HPI narrative: Pt is a 46 yo assigned female at presenting w/ PMHx significant for hearing impairment, developmental delay, hirschsprung's disease, and Tourette's syndrome for a 3 day hx of abd pain. She presents w/ her mom who is her primary home care liaison and provides all information. Patient's mother reports that the abd pain started on Sunday and has been constant since then w/ 3 episodes of non-bilious, non-bloody vomiting last night. She denies any hx of blood in the stool but states she is unsure when the pt's last bowel movement was. She denies any recent illness symptoms such as fevers, cough, SOB, or chest pain. She denies any known recent sick contacts. She reports that the pt has been eating, drinking, and acting per her normal baseline. The pt points to the area of the RLQ when asked where a majority of her pain is located. She denies any radiation of pain, relieving, or exacerbating factors. Patient's mother states that the patient has had multiple abd surgeries including colostomy creation and reversal, as well as a scar tissue removal surgery in 2007 secondary to abd pain. Onset (ago): day(s) (3) Location: abdomen Radiation: non-radiation Severity: mild Severity scale (1-10): 2 Quality: aching and dull Pain Consistency: constant Relieving factors: none Exacerbating factors: none Associated symptoms: nausea/vomiting (3 episodes of vomiting last night) Treatments prior to arrival: none Related Data Home Medications Medication Instructions Recorded Confirmed levothyroxine 100 mcg tablet 100 mcg PO DAILY 11/15/21 06/14/22 Previous Rx's Medication Instructions Recorded topiramate 25 mg tablet 25 mg PO BID 30 days #60 tabs 11/02/21 baclofen 10 mg tablet 10 mg PO TID #90 tabs 11/16/21 clonidine HCl 0.1 mg tablet 0.1 mg PO TID #300 tabs 11/16/21 gabapentin 300 mg capsule 300 mg PO BEDTIME #90 caps 04/17/22 haloperidol 0.5 mg tablet 0.5 mg PO BID #60 tabs 09/06/22 onabotulinumtoxinA 200 unit 200 unit subcut .every 3 months #1 09/07/22 solution for injection (Botox) ea Allergies Allergy/AdvReac Type Severity Reaction Status Date / Time Sulfa (Sulfonamide Allergy Severe HIVES Verified 08/21/22 14:17 Antibiotics) [SULFA (SULFONAMIDE ANTIBIOTICS)] potassium [Potassimin] Allergy Intermediate Unknown Verified 08/21/22 14:17 amoxicillin Allergy Unknown Unknown Verified 08/21/22 14:17 From AUGMENTIN Allergy Severe HIVES Uncoded 08/21/22 14:17 Review of Systems Review of Systems: Yes Unobtainable due to mental condition (developmental delay, hearing impairment) Constitutional: Constitutional: Reports no additional constitutional complaints, Denies chills, Denies fever(s) and Denies night sweats Eyes: Eyes: Denies no additional eye complaints ENT: Denies dizziness Cardiovascular: Cardiovascular: Reports no additional cardiovascular complaints, Denies chest pain, Denies lightheadedness, Denies Loss of Consciousness and Denies dyspnea Respiratory: Respiratory: Reports no additional respiratory complaints and Denies dyspnea Gastrointestinal: Gastrointestinal: Reports as per HPI, Reports no additional gastrointestinal complaints, Reports abdominal pain, Denies change in stool character, Reports nausea and Reports vomiting Genitourinary: Genitourinary: Denies hematuria, Denies urinary frequency, Denies dysuria, Denies urinary incontinence, Denies urinary hesitancy and Denies urinary urgency Musculoskeletal: Musculoskeletal: Reports no additional musculoskeletal complaints Neurologic: Denies dizziness Psychiatric: Psychiatric: Reports no additional psychiatric complaints Endocrine: Endocrine: Reports no additional endocrine complaints Hematologic/Lymphatic: Hematologic/Lymphatic: Reports no additional hematologic/lymphatic complaints Allergic/Immunologic: Allergic/Immunologic: Reports no additional allergic/immunologic complaints [facility] Past Medical History Attestation statement: The following information was validated with the patient. (all information validated with the patient's mother) Source: old records reviewed and obtained from family (patient's mother) Medical History Chronic migraine w/o aura w/o status migrainosus, not intractable Head ache [place] (hard of hearing) Mentally challenged Tourette syndrome Surgical History No pertinent past surgical history Social History Social History Household Members Other:: MOTHER Alcohol intake: never Patient Tobacco Use Status: Never used Tobacco Smoked in Last 30 Days: No Use of substances other than those prescribed or required for medical reasons: No Advance Directives: No Advance Directives Information Provided: No Current occupational status: unemployed and student Current occupation: [employer] Physical Exam ED Vital Signs: Vital Signs - 24 hr 09/22/22 04:47 09/22/22 06:00 09/22/22 07:17 Temperature 98.8 F 98.4 F 98.2 F Pulse Rate 97 99 94 Respiratory Rate 16 18 14 Blood Pressure 162/95 H 139/86 135/87 Pulse Oximetry 100 97 97 Oxygen Delivery Method Room Air Room Air Room Air 09/22/22 10:00 Temperature 98.0 F Pulse Rate 95 Respiratory Rate 14 Blood Pressure 144/80 H Pulse Oximetry 95 Oxygen Delivery Method Room Air BMI result Body Mass Index 31.1 Const General: healthy appearing, comfortable, alert, awake and Physically active Nutritional Appearance: well nourished Limitations: other limitations (developmental delay) [facility] Head: Yes normal to inspection Ears: hearing grossly abnormal bilaterally Eyes General: appearance normal, both eyes and all related structures Neck Neck: Yes normal visual inspection Chest Chest palpation & inspection: normal inspection of the chest Resp Effort & Inspection: normal respiratory effort, no cough and no respiratory distress Auscultation: clear to auscultation bilaterally, no rales, no rhonchi and no wheezes Cardio Jugular venous distension: no JVD Rate: regular rate Rhythm: regular rhythm Heart sounds: S1 normal heart sound present and S2 normal heart sound present GI Inspection: Yes normal to inspection and Yes scar Palpation (GI): Soft to palpation, not firm, nontender, no guarding, not rigid, No hepatosplenomegaly present, no masses and No Rebound tenderness present Auscultation: normal bowel sounds Skin General skin exam: no rashes or lesions noted and no jaundice Medications Administered Discontinued Medications Generic Name Dose Route Start Last Admin Trade Name Freq PRN Reason Stop Dose Admin Iohexol 100 ml 09/22/22 09:46 09/22/22 09:46 Iohexol 350 Mg/Ml 100 Ml Infus..Btl IV 09/22/22 09:47 85 ml ONCE ONE Administration Medical Decision Making [facility] Narrative Medical decision making narrative: Patient is a 46 year old assigned female at with a history of tourettes, developmental delay, decreased hearing, and hirschsprung's disease presenting to the emergency department today with abdominal pain, nausea, and vomiting. Patient's physical exam was unremarkable. Patient's blood work showed an elevated WBC count of 17.3 but was otherwise unremarkable. Patient's urine showed no acute process. Patient's abdominal CT showed a large cyst vs. mass in the right adnexa that the radiologist comments was even bigger in May 2017, then smaller in August 2017, and now the size it is today. Patient's clinical presentation is most consistent with a viral enteritis. I do not suspect the patient's cyst vs. mass is the cause of her symptoms today. I spoke to Dr. Gayle who recommended the patient follow up out patient with gynecologic oncolocy. I explained my physical exam findings as well as all test results to the patient and the patient's mother. I answered all questions asked by the patient and the patient's mother. I stressed the importance of the patient taking her medication as prescribed. I stressed the importance of the patient following up with her primary care provider and a gynecologic oncologist. I stressed the importance of the patient returning to the emergency department immediately if her symptoms were to worsen or if she were to develop any dizziness, shortness of breath, difficulty breathing, chest pain, blurry vision, loss of vision, nausea, vomiting, abdominal pain, fever, chills, back pain, or any other complaints. Patient and the patient's mother verbalized agreement and understanding with this treatment plan and discharge. Medical Records Medical records reviewed: Yes I reviewed the patient's medical records. Lab Data Lab results reviewed: Yes I reviewed the patient's lab results. Result diagrams: 09/22/22 05:05 09/22/22 05:05 Labs: Lab Results 09/22/22 09/22/22 09/22/22 Range/Units 05:03 05:05 05:05 WBC 17.3 H (4.8-10.8) X10*3/uL RBC 4.21 (4.20-5.50) X10*6/uL Hgb 12.7 (12.0-16.0) g/dl Hct 36.8 L (37.0-47.0) % MCV 87.4 (80.0-98.0) fL MCH 30.2 (27.0-33.0) pg MCHC 34.5 (31.0-35.0) g/dl RDW 12.5 (11.0-16.0) % Plt Count 420 H (160-400) X10*3/uL MPV 8.4 L (9.4-12.3) fL Immature Gran % (Auto) 0.7 H (0.0-0.4) % Neut % (Auto) 87.8 H (45-73) % Lymph % (Auto) 7.5 L (20-40) % Glenn % (Auto) 3.6 (2-11) % Eos % (Auto) 0.2 (0-4) % Baso % (Auto) 0.2 (0-2) % Lymph # (Auto) 1.3 (1.2-4.9) X10*3/uL Glenn # (Auto) 0.6 (0.1-1.2) X10*3/uL Eos # (Auto) 0.0 (0.0-0.4) X10*3/uL Baso # (Auto) 0.0 (0.0-0.2) X10*3/uL Abs Immat Gran (auto) 0.12 H (0.00-0.03) X10*3/uL Absolute Neuts (auto) 15.2 H (2.0-8.3) x10*3/uL Absolute Nucleated RBC 0.000 (0.0-0.012) X10*3/uL Nucleated RBC % (auto) 0.0 (0.0-0.2) /100WBC Sodium 139 (135-145) mmol/L Potassium 4.1 (3.3-5.1) mmol/L Chloride 102 (96-108) mmol/L Carbon Dioxide 26 (22-29) mmol/L Anion Gap 15 (12-20) BUN 13 (9-16) mg/dL Creatinine 0.76 (0.5-1.4) mg/dL Estim Creat Clear Calc 89.8 Estimated GFR > 60 Random Glucose 108 (60-115) mg/dL Calcium 9.4 D (8.4-10.2) mg/dL Total Bilirubin 0.6 (0.0-1.0) mg/dL Direct Bilirubin 0.2 (0.0-0.5) mg/dL AST 14 (5-31) U/L ALT 15 (0-31) U/L Alkaline Phosphatase 105 (39-117) U/L Total Protein 7.0 (6.5-8.0) g/dL Albumin 4.3 (3.5-5.0) g/dL Lipase 18 (8-78) U/L Urine Color Urine Appearance Urine pH (5.0-9.0) Ur Specific [place] (1.005-1.025) Urine Protein (Neg-Trace) mg/dL Urine Glucose (UA) (Negative) mg/dL Urine Ketones (Negative) mg/dL Urine Blood (Negative) Urine Nitrite (Negative) Ur Leukocyte Esterase (Negative) Urine RBC (0-2) /HPF Urine WBC (0-5) /HPF Ur Squamous Epith Cells (0-2) /HPF Urine Bacteria (None Seen) Hyaline Casts (0-2) /LPF COVID-19 (MYRNA) Negative (Negative) COVID-19 Clin Com See Note Influenza Type A (PCR) (Negative) Influenza Type B (PCR) (Negative) RSV RNA Qual (PCR) (Negative) SARS-CoV-2 RNA (RT-PCR) (Negative) 09/22/22 09/22/22 Range/Units 05:46 08:25 WBC (4.8-10.8) X10*3/uL RBC (4.20-5.50) X10*6/uL Hgb (12.0-16.0) g/dl Hct (37.0-47.0) % MCV (80.0-98.0) fL MCH (27.0-33.0) pg MCHC (31.0-35.0) g/dl RDW (11.0-16.0) % Plt Count (160-400) X10*3/uL MPV (9.4-12.3) fL Immature Gran % (Auto) (0.0-0.4) % Neut % (Auto) (45-73) % Lymph % (Auto) (20-40) % Glenn % (Auto) (2-11) % Eos % (Auto) (0-4) % Baso % (Auto) (0-2) % Lymph # (Auto) (1.2-4.9) X10*3/uL [place] # (Auto) (0.1-1.2) X10*3/uL Eos # (Auto) (0.0-0.4) X10*3/uL Baso # (Auto) (0.0-0.2) X10*3/uL Abs Immat Gran (auto) (0.00-0.03) X10*3/uL Absolute Neuts (auto) (2.0-8.3) x10*3/uL Absolute Nucleated RBC (0.0-0.012) X10*3/uL Nucleated RBC % (auto) (0.0-0.2) /100WBC Sodium (135-145) mmol/L Potassium (3.3-5.1) mmol/L Chloride (96-108) mmol/L Carbon Dioxide (22-29) mmol/L Anion Gap (12-20) BUN (9-16) mg/dL Creatinine (0.5-1.4) mg/dL Estim Creat Clear Calc Estimated GFR Random Glucose (60-115) mg/dL Calcium (8.4-10.2) mg/dL Total Bilirubin (0.0-1.0) mg/dL Direct Bilirubin (0.0-0.5) mg/dL AST (5-31) U/L ALT (0-31) U/L Alkaline Phosphatase (39-117) U/L Total Protein (6.5-8.0) g/dL Albumin (3.5-5.0) g/dL Lipase (8-78) U/L Urine Color Yellow Urine Appearance Cloudy Urine pH 8.0 (5.0-9.0) Ur Specific [place] <= 1.005 (1.005-1.025) Urine Protein Negative (Neg-Trace) mg/dL Urine Glucose (UA) Negative (Negative) mg/dL Urine Ketones Negative (Negative) mg/dL Urine Blood Moderate (2+) H (Negative) Urine Nitrite Negative (Negative) Ur Leukocyte Esterase Moderate (2+) H (Negative) Urine RBC 0-2 (0-2) /HPF Urine WBC 0-5 (0-5) /HPF Ur Squamous Epith Cells 3-5 (0-2) /HPF Urine Bacteria None Seen (None Seen) Hyaline Casts 0-2 (0-2) /LPF COVID-19 (MYRNA) (Negative) COVID-19 Clin Com Influenza Type A (PCR) NEGATIVE (Negative) Influenza Type B (PCR) NEGATIVE (Negative) RSV RNA Qual (PCR) NEGATIVE (Negative) SARS-CoV-2 RNA (RT-PCR) NEGATIVE (Negative) Imaging Data CT scan - abdomen: Attestation: I personally reviewed and interpreted this imaging study as follows: My impression: Large cyst vs. mass in right adnexa. Radiologist's impression: EXAMINATION: CT ABDOMEN AND PELVIS WITH CONTRAST? CLINICAL INFORMATION: Abdominal pain.? COMPARISON: 06/18/2017 and 09/14/2017? TECHNIQUE: Multidetector volumetric images were obtained from the superior aspect of the liver through the pubic symphysis following administration 85 mL of Omnipaque 350 intravenous contrast. Sagittal and coronal reformatted images were obtained on the technologist's workstation.? Oral contrast: No This CT examination was performed using dose optimization techniques as appropriate, variously including the following: *Automated exposure control *Adjustment of mA and/or kV according to patient size (this includes techniques or standardized protocols for targeted exams where dose is matched to indication/reason for exam; i.e. extremities or head) *Use of iterative reconstruction technique DLP: 692 mGy-cm FINDINGS: LUNG BASES: Normal. No pulmonary consolidation or pleural effusion.? LIVER: The liver has normal size, shape, and attenuation.? No evidence of liver mass. GALLBLADDER AND BILIARY TREE: Gallbladder is without radiopaque stones, wall thickening or pericholecystic fluid.? No dilated bile ducts. PANCREAS: Normal. No edema, pancreatic ductal dilatation or mass.? SPLEEN: Normal.? ADRENAL GLANDS: Normal.? KIDNEYS AND URETERS: The kidneys have normal size and cortical thickness. No perinephric edema or fluid collection. No urolithiasis or hydroureteronephrosis. BLADDER:? Normal. No calculi or wall thickening. BOWEL AND PERITONEUM: Stomach is unremarkable. No dilated bowel loops. No focal bowel wall thickening. The appendix is normal. ABDOMINAL WALL: Unremarkable.? VASCULATURE: Unremarkable. LYMPH NODES: Chronic haziness of central mesenteric fat with mesenteric lymph nodes measuring up to 0.7 cm short axis dimension. Findings are consistent with mild mesenteric panniculitis (and have been observed on prior CT exams). No retroperitoneal, iliac or inguinal lymphadenopathy. PELVIC VISCERA: The uterus is normal. There are chronic cystic changes of the ovaries with abutment of cysts in the midline of the pelvis. The main septated cyst in the right adnexal area measures approximately 9 x 7 x 10 cm. This represents significant enlargement since 09/14/2017. However, the right adnexal cyst previously measured up to 11 cm on 06/18/2017. It is somewhat difficult to determine whether the more midline cystic change is part of the right or left adnexa, but is likely of the left adnexa with abutment in the midline. Again noted are thin septations within the cystic left adnexa, and there is significant enlargement of the cyst compared to 09/14/2017. However, note that more prominent septated left adnexal cystic changes were present on 06/18/2017. There is trace free fluid of the pelvis/left paracolic gutter. MUSCULOSKELETAL: No acute or suspicious osseous abnormality.? CT/CT abdomen pelvis w IV con IMPRESSION: *? No acute imaging abnormalities along the gastrointestinal or genitourinary tract. *? There are prominent, thinly septated cysts of the right and left adnexa along with trace free fluid in the pelvis. Interestingly, prominent, septated cysts were also observed on 06/18/2017 but subsequently significantly decreased in size on 09/14/2017. No interval development of any significantly thickened septations or mural nodularity. These might represent serous cystadenomas involving the ovaries. If not already performed, recommend consultation with the gynecology-oncology service to determine the most appropriate management. If the patient has significant pelvic pain and fever, then this imaging examination would not exclude any superimposed pelvic inflammatory disease. *? Chronic mild mesenteric panniculitis. Dictated By: Tyrese Yeh MD Signed By: Electronically signed by Tyrese Yeh MD 09/22/22 1025 Critical Care Time Critical Care Time Critical Care Time: Yes Total Critical Care Time: 30 Attestation: I spent 30 minutes of Critical Care Time with this patient. This does not include time spent on separately reported billable procedures. Discharge Plan Discharge Clinical Impression: Abdominal pain Patient Disposition: Home, Self-Care Instructions: Abdominal Pain (ED) Additional Instructions: Follow up with your primary care provider and an OBGYN Oncologist. Return to the emergency department immediately if your symptoms worsen or if you develop any dizziness, shortness of breath, difficulty breathing, chest pain, blurry vision, loss of vision, nausea, vomiting, abdominal pain, fever, chills, back pain, or any other complaints. Prescriptions: No Action topiramate 25 mg tablet 25 mg PO BID 30 Days Qty: 60 6RF levothyroxine 100 mcg tablet 100 mcg PO DAILY baclofen 10 mg tablet 10 mg PO TID Qty: 90 6RF clonidine HCl 0.1 mg tablet 0.1 mg PO TID Qty: 300 6RF gabapentin 300 mg capsule 300 mg PO BEDTIME Qty: 90 6RF haloperidol 0.5 mg tablet 0.5 mg PO BID Qty: 60 3RF Botox 200 unit recon soln 200 unit subcut .every 3 months Qty: 1 6RF onabotulinumtoxinA 200 unit recon soln 200 unit subcut .90 days PRN (Reason: migraine headache) Qty: 1 0RF Referrals: [facility] [Provider Group] (Follow up with a Gynecologic Oncologist at [facility]. Call [phone] to follow up with Dr. Obando or Dr. Covington. ) Amy Jonas MD [Primary Care Provider] - Print Language: Romansh
--- NOTE | 2022-09-22 08:45 | PC.NURSE ---
pt is a/o x 2 no sob/cassius noted lungs - slight diminished. speaks in a mumbling voice. pt is [place] and uses sign language and mouthing to communicate. heart sounds regular. abd soft and tender (umbilical, 9/10 pain). no edema noted. pt/family aware of plan of care.
[2022-09-22 09:37] LABS: Influenza A PCR NEGATIVE (Negative); Influenza B PCR NEGATIVE (Negative); Resp Syncy Virus RNA Qual PCR NEGATIVE (Negative); SARS COV2 PCR INHOUSE NEGATIVE (Negative)
[2022-09-22] MEDS: iohexoL 350 MG/ML 100 ML INFUS..BTL IV (09:46)
[2022-09-22 10:00] VITALS: BP 144/80; PULSE 95; RESP 14; TEMP 36.7; O2SAT 95
--- NOTE | 2022-09-22 10:51 | P.CONOB_ITS ---
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 The patient has hearing impairment, developmental delay, and Tourette's syndrome. The patient's mother reports that the pt had Hirschsprung disease at and had multiple abd surgeries including colostomy creation and reversal at that time, as well as a scar tissue removal surgery in 2007 secondary to abd pain. cc:: CC: OB [facility] Past Medical History Medical History Chronic migraine w/o aura w/o status migrainosus, not intractable Head ache [place] (hard of hearing) Mentally challenged Tourette syndrome Surgical History Surgical History No pertinent past surgical history Social History Social History Household Members Other:: MOTHER Alcohol intake: never Patient Tobacco Use Status: Never used Tobacco Smoked in Last 30 Days: No Use of substances other than those prescribed or required for medical reasons: No Advance Directives: No Advance Directives Information Provided: No Current occupational status: unemployed and student Current occupation: [employer] Meds Allergies Allergy/AdvReac Type Severity Reaction Status Date / Time Sulfa (Sulfonamide Allergy Severe HIVES Verified 08/21/22 14:17 Antibiotics) [SULFA (SULFONAMIDE ANTIBIOTICS)] potassium [Potassimin] Allergy Intermediate Unknown Verified 08/21/22 14:17 amoxicillin Allergy Unknown Unknown Verified 08/21/22 14:17 From AUGMENTIN Allergy Severe HIVES Uncoded 08/21/22 14:17 Home Medications Medication Instructions Recorded Confirmed Last Taken Type levothyroxine 100 mcg tablet 100 mcg PO DAILY 11/15/21 06/14/22 Unknown History 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 CAR 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 Physical Exam Vitals Vital signs: Temp Pulse Resp BP Pulse Ox O2 Del Method 98.0 F 95 14 144/80 H 95 09/22/22 10:00 09/22/22 10:00 09/22/22 10:00 09/22/22 10:00 09/22/22 10:00 09/22/22 10:00 BMI result Body Mass Index 31.1 Additional Comments: Physical exam reported by KRYSTINA Mustafa: Soft to palpation, not firm, nontender, no guarding, not rigid, No hepatosplenom egaly present, no masses, No Rebound tenderness present and point tenderness over McBurney point, negative Hardin sign 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 CAR 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 - Results Labs CBC & Chem 7: 09/22/22 05:05 09/22/22 05:05 Labs: Short CBC 09/22/22 Range/Units 05:05 WBC 17.3 H (4.8-10.8) X10*3/uL Hgb 12.7 (12.0-16.0) g/dl Hct 36.8 L (37.0-47.0) % Plt Count 420 H (160-400) X10*3/uL BMP 09/22/22 05:05 Sodium 139 Potassium 4.1 Chloride 102 Carbon Dioxide 26 BUN 13 Creatinine 0.76 Calcium 9.4 D Liver Function 09/22/22 Range/Units 05:05 Total Bilirubin 0.6 (0.0-1.0) mg/dL Direct Bilirubin 0.2 (0.0-0.5) mg/dL AST 14 (5-31) U/L ALT 15 (0-31) U/L Alkaline Phosphatase 105 (39-117) U/L Albumin 4.3 (3.5-5.0) g/dL Urine 09/22/22 Range/Units 05:46 Urine Color Yellow Urine Appearance Cloudy Urine pH 8.0 (5.0-9.0) Ur Specific [place] <= 1.005 (1.005-1.025) Urine Protein Negative (Neg-Trace) mg/dL Urine Glucose (UA) Negative (Negative) mg/dL Imaging CT scan - abdomen: Radiologist's impression: ITS Impressions Abdomen/Pelvis CT 09/22/22 09:45 IMPRESSION: * No acute imaging abnormalities along the gastrointestinal or genitourinary tract. * There are prominent, thinly septated cysts of the right and left adnexa along with trace free fluid in the pelvis. Interestingly, prominent, septated cysts were also observed on 06/18/2017 but subsequently significantly decreased in size on 09/14/2017. No interval development of any significantly thickened septations or mural nodularity. These might represent serous cystadenomas involving the ovaries. If not already performed, recommend consultation with the gynecology-oncology service to determine the most appropriate management. If the patient has significant pelvic pain and fever, then this imaging examination would not exclude any superimposed pelvic inflammatory disease. * Chronic mild mesenteric panniculitis. Assessment and Plan (1) Ovarian cyst: Status: Acute Plan Discussed with KRYSTINA Mustafa the following: Rule out by ordering hCG quantitative, and collect GC and chlamydia and BV panel/Trichomonas. If the patient's abdominal pain and /or abdominal exam is significantly tender, recommend to order a pelvic ultrasound with Doppler to rule out ovarian torsion, Differential diagnosis of a large ovarian cyst with septation includes but not limited to: benign, premalignant or malignant conditions. If the pain is not significant and/or resolved and her physical exam is benign, the patient could be discharged with outpatient follow-up appointment at [facility] where [employer] System Installer Oncology service is available, with warning signs and symptoms for ovarian torsion/rupture, to be discussed with the patient and her mother, she is to come back to the emergency room in case of persistence, worsening of abdominal pain, nausea or vomiting, fever above 100.4 or heavy vaginal bleeding. I spent a total of 20 minutes reviewing the chart, talking to the provider in the emergency room and documenting in the medical record.
[2022-09-22 11:10] LABS: HCG Quantitative < 2 mIU/mL
== END 2022-09-22 11:14 | disposition home or self-care (01) ==
PROVIDERS: Physician Assistant Medical; Emergency Provider Emergency Medicine Emergency Medical Services; PCP Internal Medicine
DX: R10.9 Unspecified abdominal pain (principal); Z20.822 Contact with and (suspected) exposure to COVID-19; N83.202 Unspecified ovarian cyst, left side; N83.201 Unspecified ovarian cyst, right side
CPT/HCPCS: 0241U; 74177; 80053; 81001; 81003; 82248; 83690; 84702; 85025; 87635; 99284; Q9967

== ENCOUNTER → 2022-09-27 07:48 | Outpatient (BNVA) | payer MEDICARE, MEDICAID, SELFPAY | PROVIDERS: PCP Internal Medicine; Visit Provider Psychiatry & Neurology Neurology | DX: G43.119 Migraine with aura, intractable, without status migrainosus (principal); G43.709 Chronic migraine without aura, not intractable, without status migrainosus; F95.2 Tourette's disorder; G23.0 Hallervorden-Spatz disease; Z92.29 Personal history of other drug therapy | CPT/HCPCS: 64615; 99212; J0585 ==

== ENCOUNTER → 2022-11-20 14:56 | Outpatient (BNVA) | payer MEDICARE, MEDICAID, SELFPAY | PROVIDERS: PCP Internal Medicine; Visit Provider Internal Medicine | DX: M54.81 Occipital neuralgia (principal) | CPT/HCPCS: 64405; 99212 ==

== ENCOUNTER 2022-12-11 15:53 | Outpatient (REF) | payer MEDICARE, MEDICAID, SELFPAY ==
--- NOTE | ~2022-12-11 | MM_ITS ---
EXAMINATION: MM SCREENING DIGITAL BREAST TOMOSYNTHESIS, BILATERAL CLINICAL INFORMATION: Screening. Asymptomatic. The lifetime risk of breast cancer based on the Tyrer-Cuzick Model is 10%. COMPARISON: Mammography: 12/05/2021, 10/30/2020, 08/21/2019 TECHNIQUE: Digital breast tomosynthesis is performed in both the craniocaudal and mediolateral oblique views along with computer-aided detection (CAD). Synthesized 2D images are generated from the tomosynthesis. Additional left CC view is provided. FINDINGS: The breasts are heterogeneously dense, which may obscure small masses (ACR BI-RADS breast composition Category c). There is a fibronodular parenchymal pattern similar to prior exams. No developing density or architectural abnormality. There are no significant masses, abnormal calcifications, or other abnormalities. The axilla are unremarkable. No significant changes. MM/MM tomosynthesis screening BI IMPRESSION: No mammographic evidence of malignancy. ASSESSMENT: BI-RADS 1: Negative RECOMMENDATION: Routine annual mammography screening. This patient's information was entered into a reminder system with a target due date for their next mammogram.
== END 2022-12-11 15:54 | disposition home or self-care (01) ==
LOC: HO.MAMMO 15:53
PROVIDERS: PCP Internal Medicine; Visit Provider Internal Medicine
DX: Z12.31 Encounter for screening mammogram for malignant neoplasm of breast (principal)
CPT/HCPCS: 77063; 77067

== ENCOUNTER 2023-01-17 14:58 | Outpatient (REF) | payer MEDICARE, MEDICAID, SELFPAY ==
[2023-01-17 16:40] LABS: Alanine Aminotransferase 15 U/L (0-31); Albumin Level 4.3 g/dL (3.5-5.0); Alkaline Phosphatase 79 U/L (39-117); Anion Gap 15 (12-20); Aspartate Amino Transferase 15 U/L (5-31); Bilirubin Total 0.4 mg/dL (0.0-1.0); Blood Urea Nitrogen 13 mg/dL (9-16); Calcium 9.2 mg/dL (8.4-10.2); Carbon Dioxide 24 mmol/L (22-29); Chloride 106 mmol/L (96-108); Estimated Glomerular Filt Rate > 60; Glucose Random 89 mg/dL (60-115); Potassium 4.1 mmol/L (3.3-5.1); Sodium 141 mmol/L (135-145); Total Protein 6.7 g/dL (6.5-8.0)
[2023-01-17 16:59] LABS: Thyroid Stimulating Hormone 3.09 uIU/mL (0.32-4.0)
== END 2023-01-17 14:59 | disposition home or self-care (01) ==
LOC: HO.LAB 14:58
PROVIDERS: PCP Internal Medicine; Visit Provider Internal Medicine
DX: Z13.89 Encounter for screening for other disorder (principal)
CPT/HCPCS: 36415; 80053; 84443

== ENCOUNTER → 2023-01-22 08:21 | Outpatient (BNVA) | payer MEDICARE, MEDICAID, SELFPAY | PROVIDERS: PCP Internal Medicine; Visit Provider Psychiatry & Neurology Neurology | DX: G43.119 Migraine with aura, intractable, without status migrainosus (principal); G43.709 Chronic migraine without aura, not intractable, without status migrainosus; G23.0 Hallervorden-Spatz disease; F95.2 Tourette's disorder; Z92.29 Personal history of other drug therapy | CPT/HCPCS: 64615; 99211; J0585 ==

== ENCOUNTER 2023-03-12 09:45 | Outpatient (REF) | payer MEDICARE, MEDICAID, SELFPAY ==
[2023-03-13 09:23] LABS: Rubella IgG Antibody 4.13 Index
[2023-03-15 00:34] LABS: TS Negative Control Passed; TS Panel A 7; TS Panel B 0; TS Positive Control Passed; TSpotTB Borderline (Negative)
== END 2023-03-12 09:46 | disposition home or self-care (01) ==
LOC: HO.LAB 09:45
PROVIDERS: PCP Internal Medicine; Visit Provider Internal Medicine
DX: I83.90 Asymptomatic varicose veins of unspecified lower extremity (principal); Z11.1 Encounter for screening for respiratory tuberculosis; Z71.89 Other specified counseling
CPT/HCPCS: 36415; 86481; 86735; 86762; 86765; 86787

== ENCOUNTER 2023-03-15 09:38 | Outpatient (REF) | payer MEDICARE, MEDICAID, SELFPAY ==
--- NOTE | ~2023-03-15 | XR_ITS ---
EXAMINATION: XR CHEST CLINICAL INFORMATION: Borderline TB test COMPARISON: CXR February 2012 TECHNIQUE: 2 views of the chest were obtained. FINDINGS: No significant abnormality is noted involving the heart, lungs, mediastinum, bony thorax or soft tissues. XR/XR chest 2V IMPRESSION: Unremarkable examination.
[2023-03-15 14:12] LABS: Amphetamine Screen Urine Not Detected (Not Detect); Barbiturates, Urine Not Detected (Not Detect); Benzodiazepines Screen Urine Not Detected (Not Detect); Cannabinoid Screen Urine Not Detected (Not Detect); Cocaine Screen Urine Not Detected (Not Detect); Fentanyl, urine Not Detected (Not Detect); Opiate Screen Urine Not Detected (Not Detect); Phencyclidine Screen Urine Not Detected (Not Detect)
== END 2023-03-15 09:39 | disposition home or self-care (01) ==
LOC: HO.XRAY 09:38
PROVIDERS: PCP Internal Medicine; Visit Provider Internal Medicine
DX: Z02.1 Encounter for pre-employment examination (principal); Z56.89 Other problems related to employment; Z11.1 Encounter for screening for respiratory tuberculosis
CPT/HCPCS: 71046; 80307

== ENCOUNTER → 2023-04-25 13:26 | Outpatient (BNVA) | payer MEDICARE, MEDICAID, SELFPAY | PROVIDERS: PCP Internal Medicine; Visit Provider Physician Assistant | DX: Z12.11 Encounter for screening for malignant neoplasm of colon (principal); Q43.1 Hirschsprung's disease; Z93.3 Colostomy status | CPT/HCPCS: 99202 ==

== ENCOUNTER 2023-05-17 13:39 | Outpatient (AMB) | payer MEDICARE, MEDICAID, SELFPAY ==
--- NOTE | 2023-05-17 13:42 | MHC.OFFVIS ---
Intake Vital Signs 05/17/23 13:45 BP 122/78 Blood Pressure Location Rt brachial Position Sitting Pulse 77 Pulse Source Pulse Oximeter Pulse Oximetry (%) 98 Oxygen Delivery Method Room Air Intake Visit Reasons: Botox-CONFIRMED Intake Note: patient presents for botox injection Allergies Sulfa (Sulfonamide Antibiotics) [SULFA (SULFONAMIDE ANTIBIOTICS)] Allergy (Severe, Verified 05/17/23 13:44) HIVES potassium [Potassimin] Allergy (Intermediate, Verified 05/17/23 13:44) Unknown amoxicillin Allergy (Unknown, Verified 05/17/23 13:44) Unknown From AUGMENTIN Allergy (Severe, Uncoded 05/17/23 13:44) HIVES Medication List - Last Reconciled 05/17/23 by Shaniqua Mata MD baclofen 10 mg PO BEDTIME clonidine HCl 0.1 mg PO BID gabapentin 300 mg PO BEDTIME haloperidol 0.5 mg PO BID levothyroxine 100 mcg PO DAILY naproxen 500 mg PO BID onabotulinumtoxinA (Botox) 200 units subcut .every 3 months rimegepant (Nurtec ODT) 75 mg PO Q OTHER DAY 30 days topiramate 25 mg PO BID 30 days HPI HPI Comments History of Present Illness Details History of present illness: ? 47y/o female with tourettes and chronic migraines comes for treatment with botox. occipital nerve block did not help her. she was recently diagnosed with ovarian mass and has an appointment next week. Her TICS have increased . she did not tolerate increase in clonidine in the past ??? frequent reported adverse reactions following injection of botox for chronic migraine include neck pain (9%), headache(5%), eyelid ptosis(4%), migraine(4%), muscular weakness(4%), musculuskeletal stiffness(4%), bronchitis(3%), injection site pain (3%, musculoskeletal pain(3%), myalgia(3%), facial paresis(2%), HTN(2%) and muscle spasms(2%) were discussed in detail. ??? Botulinum toxin typeA 200units Lot no [id number] expiration Nov 2025 was diluted with 4 cc of normal saline . ??? Muscles injected- ??? Frontalis 4 sites ??? Procerus 1 site ??? Compensation And Benefits Manager- 2 sites ??? Temporalis- 8 sites ??? Occipitalis- 6 sites ??? Cervical paraspinals- 4 sites ??? 5 units each ??? Trapezius- 6 sites- 10units each ??? Total use- 185units ??? Discarded-15units ??? She reports pain in the left occipital region, upper back and shoulder she was seen at [facility] for NBIA _MRI showing minarelization of angelina basal ganglia and red nuclei her topiramate dose was increased 100mg bid, occipital nerve block was suggested [facility] Medical History Chronic migraine w/o aura w/o status migrainosus, not intractable Head ache [place] (hard of hearing) Mentally challenged Tourette syndrome Surgical History No pertinent past surgical history Social History Household Members Other:: MOTHER Alcohol intake: never Patient Tobacco Use Status: Never used Tobacco Current occupational status: unemployed and student Current occupation: [employer] Physical Exam Vital Signs: Last Vital Signs Pulse 77 05/17/23 13:45 BP 122/78 05/17/23 13:45 Pulse Ox 98 05/17/23 13:45 Oxygen Delivery Method Room Air 05/17/23 13:45 Const Other: Mild motor TICS Speech - slurred General: cooperative Orientation/consciousness: patient oriented x3 Neuro Other: neck - decreased range of motion and tightness General: patient oriented x3 Office Procedures Botulinum toxin Injection 88455 - Migraine Procedure code (CPT) selection complete Office Meds onabotulinumtoxinA Performing Provider: Shaniqua Mata MD Administered by: Shaniqua Mata MD on 05/17/23 14:10 Dose Route Admin Location Lot Number Expiration Date [place] Commercial Drafter 185 unit subcut [id number] 11/29/25 [id number] ALLERGAN/BOTOX Comments: see HPI Assessment & Plan Assessment & Plan (1) Migraine with aura, intractable, without status migrainosus: Code(s): G43.119 - Migraine with aura, intractable, without status migrainosus (2) Chronic migraine w/o aura w/o status migrainosus, not intractable: Code(s): G43.709 - Chronic migraine without aura, not intractable, without status migrainosus (3) Tourette syndrome: Code(s): F95.2 - Tourette's disorder (4) 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
[2023-05-17 13:45] VITALS: BP 122/78; PULSE 77; O2SAT 98
== END 2023-05-17 14:06 | disposition home or self-care (01) ==
PROVIDERS: PCP Internal Medicine; Visit Provider Psychiatry & Neurology Neurology
DX: G43.709 Chronic migraine without aura, not intractable, without status migrainosus (principal); F95.2 Tourette's disorder; G23.0 Hallervorden-Spatz disease
CPT/HCPCS: 64615

== ENCOUNTER → 2023-05-17 13:39 | Outpatient (BNVA) | payer MEDICARE, MEDICAID, SELFPAY | PROVIDERS: PCP Internal Medicine; Visit Provider Psychiatry & Neurology Neurology | DX: G43.119 Migraine with aura, intractable, without status migrainosus (principal); G43.709 Chronic migraine without aura, not intractable, without status migrainosus; G23.0 Hallervorden-Spatz disease; F95.2 Tourette's disorder | CPT/HCPCS: 64615; 99211; J0585 ==

== ENCOUNTER 2023-07-14 07:38 | Outpatient (REF) | payer OTHER, SELFPAY ==
[2023-07-14 09:42] LABS: Alanine Aminotransferase 12 U/L (0-31); Albumin Level 4.3 g/dL (3.5-5.0); Alkaline Phosphatase 87 U/L (39-117); Anion Gap 11 (12-20); Aspartate Amino Transferase 13 U/L (5-31); Bilirubin Total 0.5 mg/dL (0.0-1.0); Blood Urea Nitrogen 13 mg/dL (9-16); Calcium 9.6 mg/dL (8.4-10.2); Carbon Dioxide 28 mmol/L (22-29); Chloride 105 mmol/L (96-108); Estimated Glomerular Filt Rate > 60; Glucose Random 101 mg/dL (60-115); Potassium 4.5 mmol/L (3.3-5.1); Sodium 139 mmol/L (135-145); Total Protein 7.3 g/dL (6.5-8.0)
[2023-07-14 09:47] LABS: Thyroid Stimulating Hormone 3.86 uIU/mL (0.32-4.0)
== END 2023-07-14 07:39 | disposition home or self-care (01) ==
LOC: HO.LAB 07:38
PROVIDERS: PCP Internal Medicine; Visit Provider Internal Medicine
DX: E03.9 Hypothyroidism, unspecified (principal); E78.00 Pure hypercholesterolemia, unspecified; F70 Mild intellectual disabilities; F95.2 Tourette's disorder
CPT/HCPCS: 36415; 80053; 84443

== ENCOUNTER 2023-08-14 08:56 | Emergency (ER) | payer OTHER, MEDICAID, SELFPAY ==
--- NOTE | ~2023-08-14 | US_ITS ---
EXAMINATION: US PELVIS CLINICAL INFORMATION: Left lower quadrant abdominal pain for one week. History of ovarian cysts. LMP: Unsure COMPARISON: CT scan abdomen and pelvis 09/22/2022, pelvic ultrasound 06/04/2014 TECHNIQUE: Ultrasound of the pelvis is performed using both transabdominal and transvaginal transducers along with Doppler. Transvaginal imaging is performed due to inadequate visualization transabdominally. FINDINGS: Uterus: The uterus is anteverted and possibly arcuate and measures 9.1 x 3.9 x 4.8 cm. The endometrial thickness is 0.7 cm. Adnexa: Right ovary measures 11.6 x 10.2 x 10.3 cm. Volume 638 mL. There is an 11.3 x 7.3 x 10.9 cm cyst within the right adnexa/? Right ovary with several thin septations with slight vascular flow seen in one of the septations. There is question was seen and measures 4.5 x 3.6 x 5.4 cm. Volume 46 mL. There are multiple tubular structures in the left adnexa best appreciated on the cine views which raises the possibility of a hydrosalpinx. US/US pelvic ovarian doppler IMPRESSION: 1. 11.3 cm cyst within the right adnexa/? Right ovary with several thin septations with slight vascular flow seen in one of the septations. This raises concern for low-grade cystic neoplasm. Gynecologic consult is recommended with consideration of MRI scan with IV contrast if clinically warranted. 2. Multiple tubular structures in the left adnexa best appreciated on the cine views which raises the possibility of a hydrosalpinx. 3. 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
--- NOTE | ~2023-08-14 | US_ITS ---
EXAMINATION: US PELVIS and transvaginal CLINICAL INFORMATION: Left lower quadrant abdominal pain for one week. History of ovarian cysts. LMP: Unsure COMPARISON: CT scan abdomen and pelvis 09/22/2022, pelvic ultrasound 06/04/2014 TECHNIQUE: Ultrasound of the pelvis is performed using both transabdominal and transvaginal transducers along with Doppler. Transvaginal imaging is performed due to inadequate visualization transabdominally. FINDINGS: Uterus: The uterus is anteverted and possibly arcuate and measures 9.1 x 3.9 x 4.8 cm. The endometrial thickness is 0.7 cm. Adnexa: Right ovary measures 11.6 x 10.2 x 10.3 cm. Volume 638 mL. There is an 11.3 x 7.3 x 10.9 cm cyst within the right adnexa/? Right ovary with several thin septations with slight vascular flow seen in one of the septations. There is question was seen and measures 4.5 x 3.6 x 5.4 cm. Volume 46 mL. There are multiple tubular structures in the left adnexa best appreciated on the cine views which raises the possibility of a hydrosalpinx. US/US pelvic and transvaginal IMPRESSION: 1. 11.3 cm cyst within the right adnexa/? Right ovary with several thin septations with slight vascular flow seen in one of the septations. This raises concern for low-grade cystic neoplasm. Gynecologic consult is recommended with consideration of MRI scan with IV contrast if clinically warranted. 2. Multiple tubular structures in the left adnexa best appreciated on the cine views which raises the possibility of a hydrosalpinx. 3. 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
--- NOTE | ~2023-08-14 | CT_ITS ---
EXAMINATION: CT ABDOMEN AND PELVIS WITH CONTRAST CLINICAL INFORMATION: Left lower quadrant abdominal pain. COMPARISON: Pelvic ultrasound 08/14/2023. CT abdomen and pelvis 09/22/2022. TECHNIQUE: Multidetector volumetric images were obtained from the superior aspect of the liver through the pubic symphysis following administration 85 mL of Omnipaque 350 intravenous contrast. Sagittal and coronal reformatted images were obtained on the technologist's workstation. Oral contrast: No This CT examination was performed using dose optimization techniques as appropriate, variously including the following: *Automated exposure control *Adjustment of mA and/or kV according to patient size (this includes techniques or standardized protocols for targeted exams where dose is matched to indication/reason for exam; i.e. extremities or head) *Use of iterative reconstruction technique DLP: 599 mGy-cm FINDINGS: LUNG BASES: Trace left pleural effusion. Motion artifact obscures the lung bases. LIVER, GALLBLADDER, AND BILIARY TREE: The liver is normal in size, shape, and attenuation. No focal hepatic lesion or biliary ductal dilatation is present. The gallbladder is unremarkable with no evidence of radiopaque gallstones, gallbladder wall thickening, or obvious pericholecystic inflammatory changes. PANCREAS: No discrete mass or ductal dilatation. SPLEEN: Simple cyst in the upper pole measuring 1.5 cm. No follow-up imaging is recommended. The spleen is normal in size. ADRENAL GLANDS: No adrenal mass. KIDNEYS AND URETERS: The kidneys are normal in size, shape, and attenuation. No hydronephrosis, hydroureter, or calculi seen. No perinephric stranding. BLADDER: Unremarkable. GASTROINTESTINAL TRACT: The small bowel is normal in caliber. The large bowel is normal in caliber. Minor sigmoid diverticulosis without evidence of diverticulitis. The appendix appears normal. Bing mesentery in the left lower quadrant small bowel mesentery with slightly prominent lymph nodes consistent with chronic mesenteric panniculitis. This finding is similar to the prior study from 09/22/2022. ABDOMINAL WALL: No significant hernia is appreciated. LYMPH NODES: No adenopathy. VASCULAR: Mild aortoiliac atherosclerosis. PELVIC VISCERA: Abnormal. There is a septated cystic mass in the right adnexum measuring 8.5 x 8.7 x 11.5 cm. Previously this measured 9 x 7 x 10 cm. Left hydrosalpinx. One portion of the tube versus a separate cystic structure measuring 4.0 x 3.3 x 4.0 cm has intermediate attenuation fluid consistent with hemorrhage or proteinaceous debris. No surrounding inflammatory stranding to strongly suggest tubo-ovarian abscess. OSSEOUS STRUCTURES: Degenerative changes in the spine. CT/CT abdomen pelvis w IV con IMPRESSION: Septated cystic cyst mass in the right adnexum concerning for low-grade cystic neoplasm. Left hydrosalpinx. One portion of the dilated tube versus a separate thin-walled cyst measuring 4 cm has intermediate attenuation fluid consistent with hemorrhage or proteinaceous debris. The rest of the hydrosalpinx has simple fluid attenuation. No surrounding inflammatory changes to strongly suggest tubo-ovarian abscess. No free fluid to suggest rupture. Gynecology consultation is recommended. Fleischner guidelines were followed.
[2023-08-14 09:07] VITALS: BP 124/67; PULSE 100; RESP 16; TEMP 36.8; O2SAT 97; BMI 32.4
[2023-08-14 10:14] LABS: MANUAL DIFF FLAG NO
[2023-08-14 10:17] LABS: Basophils Absolute Auto 0.1 X10*3/uL (0.0-0.2); Basophils Percent Auto 0.5 % (0-2); Eosinophils Absolute Auto 0.1 X10*3/uL (0.0-0.4); Eosinophils Percent Auto 1.1 % (0-4); Hematocrit 36.6 % (37.0-47.0); Hemoglobin 12.5 g/dl (12.0-16.0); Imm Gran Abs Auto 0.07 X10*3/uL (0.00-0.03); Imm Gran Pct Auto 0.6 % (0.0-0.4); Lymphocytes Absolute Auto 2.2 X10*3/uL (1.2-4.9); Lymphocytes Percent Auto 17.1 % (20-40); Mean Corpuscular HGB Conc 34.2 g/dl (31.0-35.0); Mean Corpuscular Hemoglobin 29.1 pg (27.0-33.0); Mean Corpuscular Volume 85.3 fL (80.0-98.0); Monocytes Absolute Auto 0.8 X10*3/uL (0.1-1.2); Monocytes Percent Auto 6.1 % (2-11); Neutrophils Absolute Auto 9.5 x10*3/uL (2.0-8.3); Neutrophils Percent Auto 74.6 % (45-73); Platelet Count 376 X10*3/uL (160-400); Red Blood Count 4.29 X10*6/uL (4.20-5.50); Red Cell Distribution Width 12.5 % (11.0-16.0); White Blood Count 12.7 X10*3/uL (4.8-10.8)
[2023-08-14 10:38] LABS: Alanine Aminotransferase 13 U/L (0-31); Albumin Level 4.3 g/dL (3.5-5.0); Alkaline Phosphatase 92 U/L (39-117); Anion Gap 14 (12-20); Aspartate Amino Transferase 13 U/L (5-31); Bilirubin Direct 0.1 mg/dL (0.0-0.5); Bilirubin Total 0.3 mg/dL (0.0-1.0); Blood Urea Nitrogen 11 mg/dL (9-16); Calcium 9.4 mg/dL (8.4-10.2); Carbon Dioxide 25 mmol/L (22-29); Chloride 104 mmol/L (96-108); Creatinine Clr Calc Pharmacy 84.1; Estimated Glomerular Filt Rate > 60; Glucose Random 116 mg/dL (60-115); Lipase 21 U/L (8-78); Magnesium 2.1 mg/dL (1.6-2.6); Potassium 3.8 mmol/L (3.3-5.1); Sodium 139 mmol/L (135-145); Total Protein 7.3 g/dL (6.5-8.0)
[2023-08-14 10:41] LABS: HCG Quantitative < 2 mIU/mL
--- NOTE | 2023-08-14 12:02 | ED.ABDPAIN ---
HPI - Abdominal Pain General Chief Complaint: Abdominal Pain Stated Complaint: Ovarian cyst Time Seen by Provider: 08/14/23 11:59 Source: patient, RN notes reviewed and old records reviewed Mode of arrival: ambulatory History of Present Illness HPI narrative: 47-year-old female with past medical history of tract syndrome, chronic migraines, deaf, presenting to ED with mother complaining of lower abdominal pain x1 week. Mother states they called patient's OBGYN and was instructed to come to the ED for imaging. Denies fever/chills, nausea/vomiting, diarrhea/constipation, dysuria/hematuria, vaginal bleeding or discharge. MD elicited complaint: abdominal pain Related Data Home Medications Medication Instructions Recorded Confirmed levothyroxine 100 mcg tablet 100 mcg PO DAILY 11/15/21 05/17/23 naproxen 500 mg tablet 500 mg PO BID 09/27/22 05/17/23 Previous Rx's Medication Instructions Recorded topiramate 25 mg tablet 25 mg PO BID 30 days #60 tabs 11/02/21 onabotulinumtoxinA 200 unit 200 unit subcut .every 3 months #1 09/07/22 solution for injection (Botox) ea clonidine HCl 0.1 mg tablet 0.1 mg PO BID #180 tabs 01/22/23 haloperidol 0.5 mg tablet 0.5 mg PO BID #60 tabs 05/03/23 gabapentin 300 mg capsule 300 mg PO BEDTIME #90 caps 06/11/23 baclofen 10 mg tablet 10 mg PO TID #90 tabs 06/21/23 rimegepant 75 mg disintegrating 75 mg PO Q OTHER DAY 30 days #15 07/03/23 tablet (Nurtec ODT) tabs Allergies Allergy/AdvReac Type Severity Reaction Status Date / Time Sulfa (Sulfonamide Allergy Severe HIVES Verified 05/17/23 13:44 Antibiotics) [SULFA (SULFONAMIDE ANTIBIOTICS)] potassium [Potassimin] Allergy Intermediate Unknown Verified 05/17/23 13:44 amoxicillin Allergy Unknown Unknown Verified 05/17/23 13:44 From AUGMENTIN Allergy Severe HIVES Uncoded 05/17/23 13:44 Review of Systems Review of Systems Constitutional: No Fever, No Chills, No Fatigue, No Malaise Eyes: No Eye Pain, No Swelling, No Redness,No Vision Changes Cardiovascular: No Chest Pain, No SOB Respiratory: No Cough, No Sputum, No Dyspnea Gastrointestinal: No Nausea, No Vomiting, No Diarrhea, No Constipation, +Abdominal pain Genitourinary: No vaginal discharge, No irregular bleeding, No Dysuria, No Urinary Frequency, No Hematuria, No Flank Pain, No Urinary Flow Changes Musculoskeletal: No joint pain, No Myalgias, No Joint Swelling Skin: No Skin Lesions, No rash Neuro: No Weakness, No Headache Yes all other systems are reviewed and are negative Constitutional: Reports as per [facility] Past Medical History Attestation statement: The following information was validated with the patient. Source: old records reviewed Medical History Chronic migraine w/o aura w/o status migrainosus, not intractable Tourette syndrome Mentally challenged [place] (hard of hearing) Head ache Surgical History No pertinent past surgical history Social History Social History Household Members Other:: MOTHER Alcohol intake: never Patient Tobacco Use Status: Never used Tobacco Advance Directives: No Advance Directives Information Provided: Yes Patient : No Current occupational status: unemployed and student Current occupation: [employer] Physical Exam ED Vital Signs: Vital Signs - 24 hr 08/14/23 09:07 08/14/23 13:55 Temperature 98.3 F 97.9 F Pulse Rate 100 72 Respiratory Rate 16 16 Blood Pressure 124/67 101/56 L Pulse Oximetry 97 99 Oxygen Delivery Method Room Air Room Air BMI result Body Mass Index 32.4 Const General: cooperative, healthy appearing and no acute distress Orientation/consciousness: patient oriented x3 Limitations: no limitations HENIL Head: Yes normal to inspection and Yes atraumatic Ears: hearing grossly normal bilaterally General nose exam: Normal external nose present Face and sinus: Yes normal facial exam Eyes General: appearance normal, both eyes and all related structures EOM: EOMs intact bilaterally Neck Neck: Yes normal visual inspection and Yes no meningeal signs Resp Effort & Inspection: normal respiratory effort and no respiratory distress Auscultation: clear to auscultation bilaterally Cardio Rate: regular rate Heart sounds: S1 normal heart sound present and S2 normal heart sound present GI Inspection: Yes normal to inspection Palpation (GI): Soft to palpation, Tenderness to palpation present (GI) in the LLQ; with no rebound tenderness, no guarding and not rigid General: Yes no CVA tenderness Back/Spine/Pelvis Back: no CVA tenderness Skin Rashes: no rashes Wounds: no wounds Neuro General: patient oriented x3, tone normal and no meningeal signs Cranial nerves: Yes CN's II-XII intact bilaterally Gait exam (Neuro): Normal gait present Extrem General: Yes normal to inspection Course Course Course Narrative: -mild leukocytosis of 12.7. Labs otherwise reassuring. HCG negative US pelvic and transvaginal IMPRESSION: 1. 11.3 cm cyst within the right adnexa/? Right ovary with several thin septations with slight vascular flow seen in one of the septations. This raises concern for low-grade cystic neoplasm. Gynecologic consult is recommended with consideration of MRI scan with IV contrast if clinically warranted. 2. Multiple tubular structures in the left adnexa best appreciated on the cine views which raises the possibility of a hydrosalpinx. 3. 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 >1410--results discussed with mother including potential malignancy. Mother states cyst has been watched for a long time, but does not remember hearing of complications inside of cyst. Currently follows with private OBGYN office with [facility]. On re-evaluation patient still with left lower quadrant abdominal tenderness, will obtain CT for further eval and rule out diverticulitis. 1604--CT abdomen pelvis w IV con IMPRESSION: Septated cystic cyst mass in the right adnexum concerning for low-grade cystic neoplasm. Left hydrosalpinx. One portion of the dilated tube versus a separate thin-walled cyst measuring 4 cm has intermediate attenuation fluid consistent with hemorrhage or proteinaceous debris. The rest of the hydrosalpinx has simple fluid attenuation. No surrounding inflammatory changes to strongly suggest tubo-ovarian abscess. No free fluid to suggest rupture. Gynecology consultation is recommended. Fleischner guidelines were followed. > Dr. Gayle consulted, evaluating patient in the ED. pelvic exam performed by Dr. Gayle. No evidence of TOA or torsion. Patient has follow-up with associate merchandiser Oncology next week, this was strongly recommended. Nothing acute to do in the ED today. This was discussed with mother/patient. Mother was provided with copies of ultrasound and CT results Results discussed with patient including worrisome signs and symptoms and strict return precautions, and when to return to the emergency department. They verbalized understanding and feel safe for discharge at this time. Medical Decision Making Medical Decision Making MDM Narrative: 47-year-old female with past medical history of tract syndrome, chronic migraines, deaf, presenting to ED with mother complaining of lower abdominal pain x1 week. On exam vital signs stable, NAD, nontoxic appearing, abdomen soft with mild left lower quadrant tenderness, no rebound or guarding, no CVAT. Concern for unknown ovarian cyst vs torsion vs diverticulitis vs UTI. Lower suspicion for renal stone/pyelo, appendicitis Plan: Labs, UA, pelvic ultrasound Please refer to course for remaining clinical decision making, interpretation of labs/imaging results, and discussions with consultants and/or family members. Differential Diagnosis Differential Diagnoses: The differential diagnosis associated with the presentation includes As above Admission/Observation Consideration of admission/observation: Escalation of care including admission/observation considered Consult Healthcare Provider Management of the patient was discussed with: Electric Meter Inspector (OSCAR Gayle) Lab Data [facility] Lab Attestation statement: I reviewed the patient's lab results. 08/14/23 10:11 08/14/23 10:11 Labs: Lab Results 08/14/23 08/14/23 Range/Units 10:11 13:57 WBC 12.7 H (4.8-10.8) X10*3/uL RBC 4.29 (4.20-5.50) X10*6/uL Hgb 12.5 (12.0-16.0) g/dl Hct 36.6 L (37.0-47.0) % MCV 85.3 (80.0-98.0) fL MCH 29.1 (27.0-33.0) pg MCHC 34.2 (31.0-35.0) g/dl RDW 12.5 (11.0-16.0) % Plt Count 376 (160-400) X10*3/uL MPV 9.0 L (9.4-12.3) fL Immature Gran % (Auto) 0.6 H (0.0-0.4) % Neut % (Auto) 74.6 H (45-73) % Lymph % (Auto) 17.1 L (20-40) % [place] % (Auto) 6.1 (2-11) % Eos % (Auto) 1.1 (0-4) % Baso % (Auto) 0.5 (0-2) % Lymph # (Auto) 2.2 (1.2-4.9) X10*3/uL [place] # (Auto) 0.8 (0.1-1.2) X10*3/uL Eos # (Auto) 0.1 (0.0-0.4) X10*3/uL Baso # (Auto) 0.1 (0.0-0.2) X10*3/uL Abs Immat Gran (auto) 0.07 H (0.00-0.03) X10*3/uL Absolute Neuts (auto) 9.5 H (2.0-8.3) x10*3/uL Absolute Nucleated RBC 0.000 (0.0-0.012) X10*3/uL Nucleated RBC % (auto) 0.0 (0.0-0.2) /100WBC Sodium 139 (135-145) mmol/L Potassium 3.8 (3.3-5.1) mmol/L Chloride 104 (96-108) mmol/L Carbon Dioxide 25 (22-29) mmol/L Anion Gap 14 (12-20) BUN 11 (9-16) mg/dL Creatinine 0.82 (0.5-1.4) mg/dL Estim Creat Clear Calc 84.1 Estimated GFR > 60 Random Glucose 116 H (60-115) mg/dL Calcium 9.4 (8.4-10.2) mg/dL Magnesium 2.1 (1.6-2.6) mg/dL Total Bilirubin 0.3 (0.0-1.0) mg/dL Direct Bilirubin 0.1 (0.0-0.5) mg/dL AST 13 (5-31) U/L ALT 13 (0-31) U/L Alkaline Phosphatase 92 (39-117) U/L Total Protein 7.3 (6.5-8.0) g/dL Albumin 4.3 (3.5-5.0) g/dL Lipase 21 (8-78) U/L Beta HCG, Quant < 2 mIU/mL Urine Color Yellow Urine Appearance Clear Urine pH 6.5 (5.0-9.0) Ur Specific [place] <= 1.005 (1.005-1.025) Urine Protein Negative (Neg-Trace) mg/dL Urine Glucose (UA) Negative (Negative) mg/dL Urine Ketones Negative (Negative) mg/dL Urine Blood Trace H (Negative) Urine Nitrite Negative (Negative) Ur Leukocyte Esterase Moderate (2+) H (Negative) Urine RBC 0-2 (0-2) /HPF Urine WBC 0-5 (0-5) /HPF Ur Squamous Epith Cells 3-5 (0-2) /HPF Urine Bacteria 2+ (None Seen) Hyaline Casts 0-2 (0-2) /LPF Independent Interpretation I performed an independent interpretation of an: Ultrasound Radiology Impression Discussion of test interpretation with radiology: I have reviewed the radiologist's reading. External Record Review External record reviewed: Inpatient record, Office record, Outpatient record, Prior outpatient labs, Prior outpatient radiology, Primary care record and Outside ED record Tests considered The following testing was considered but not selected: As above Prescription Management I considered prescription management with: Pain Medication Chronic Conditions Patient?s care impacted by: Other Medications Administered Discontinued Medications Generic Name Dose Route Start Last Admin Trade Name Freq PRN Reason Stop Dose Admin Iohexol 100 ml 08/14/23 15:15 08/14/23 15:15 Iohexol 350 Mg/Ml 100 Ml Infus..Btl IV 08/14/23 15:16 85 ml ONCE ONE Administration Critical Care Time Critical Care Time Critical Care Time: Yes Total Critical Care Time: 32 Attestation: I have personally provided critical care time exclusive of time spent on separately billable procedures. Time includes review of lab data, radiology results, discussion with consultants, and monitoring for potential decompensation. Intervention performed as documented. Discharge Plan Discharge Clinical Impression: Complex cyst of uterine adnexa, Hydrosalpinx, Abdominal pain, left lower quadrant Patient Disposition: Still a Patient Prescriptions: No Action topiramate 25 mg tablet 25 mg PO BID 30 Days Qty: 60 6RF levothyroxine 100 mcg tablet 100 mcg PO DAILY Botox 200 unit recon soln 200 unit subcut .every 3 months Qty: 1 6RF haloperidol 0.5 mg tablet 0.5 mg PO BID Qty: 60 3RF gabapentin 300 mg capsule 300 mg PO BEDTIME Qty: 90 6RF baclofen 10 mg tablet 10 mg PO TID Qty: 90 6RF Nurtec ODT 75 mg tablet,disintegrating 75 mg PO Q OTHER DAY 30 Days Qty: 15 6RF onabotulinumtoxinA 200 unit recon soln 200 unit subcut .90 days PRN (Reason: migraine headache) Qty: 1 0RF naproxen 500 mg tablet 500 mg PO BID clonidine HCl 0.1 mg tablet 0.1 mg PO BID Qty: 180 6RF
[2023-08-14 13:55] VITALS: BP 101/56; PULSE 72; RESP 16; TEMP 36.6; O2SAT 99
[2023-08-14 14:06] LABS: Appearance Urine Clear; Color Urine Yellow; Glucose Urine UA Negative (Negative); Leukocyte Esterase Urine Moderate (2+) (Negative); Nitrite Urine Negative (Negative); PH 6.5 (5.0-9.0); Specific Gravity - Urine <= 1.005 (1.005-1.025); UMIC TRIGGER UACC YES; Urine Blood Trace (Negative); Urine Ketones Negative (Negative); Urine Protein Negative (Neg-Trace)
[2023-08-14 14:18] LABS: Bacteria Urine 2+ (None Seen); Hyaline Casts Urine 0-2 /LPF (0-2); RBC Urine 0-2 /HPF (0-2); WBC Urine 0-5 /HPF (0-5)
[2023-08-14] MEDS: iohexoL 350 MG/ML 100 ML INFUS..BTL IV (15:15)
--- NOTE | 2023-08-14 16:24 | PM.GYNCN ---
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 The patient is deaf and her Mother helps with the communication , she states that her pain started slowly not acutely a week ago no radiation to the pain no other associated urinary or GI sent, no fever/chills, no nausea/vomiting, no vaginal bleeding or discharge. Patient has never been sexually active. HCG is less than 2, ultrasound Doppler showed positive bilateral arterial and venous flow. cc:: CC: OB [facility] Past Medical History Medical History Chronic migraine w/o aura w/o status migrainosus, not intractable Tourette syndrome Mentally challenged [place] (hard of hearing) Head ache Surgical History Surgical History No pertinent past surgical history Social History Social History Household Members Other:: MOTHER Alcohol intake: never Patient Tobacco Use Status: Never used Tobacco Advance Directives: No Advance Directives Information Provided: Yes Patient : No Current occupational status: unemployed and student Current occupation: [employer] Meds Allergies Allergy/AdvReac Type Severity Reaction Status Date / Time Sulfa (Sulfonamide Allergy Severe HIVES Verified 05/17/23 13:44 Antibiotics) [SULFA (SULFONAMIDE ANTIBIOTICS)] potassium [Potassimin] Allergy Intermediate Unknown Verified 05/17/23 13:44 amoxicillin Allergy Unknown Unknown Verified 05/17/23 13:44 From AUGMENTIN Allergy Severe HIVES Uncoded 05/17/23 13:44 Home Medications Medication Instructions Recorded Confirmed Last Taken Type levothyroxine 100 mcg tablet 100 mcg PO DAILY 11/15/21 05/17/23 Unknown History naproxen 500 mg tablet 500 mg PO BID 09/27/22 05/17/23 Unknown History WATER POLLUTION CONTROL INSPECTOR Physical Exam Vitals Vital signs: Temp Pulse Resp BP Pulse Ox O2 Del Method 97.9 F 72 16 101/56 L 99 Room Air 08/14/23 13:55 08/14/23 13:55 08/14/23 13:55 08/14/23 13:55 08/14/23 13:55 08/14/23 13:55 BMI result Body Mass Index 32.4 Abdomen Auscultation/Inspection/Palpation: Soft, Non-distended and No tenderness Female Genitalia (Pelvic) Bladder/Urethra: Normal meatus Vulva: No lesions Lesion: Pustule Vagina: Nontender Cervix: Grossly normal Adnexa/Parametria: Adnexal Tenderness: None, Adnexal Mass: Bilateral and Parametrial Tenderness: None WATER POLLUTION CONTROL INSPECTOR - Results Labs 08/14/23 10:11 08/14/23 10:11 Labs: Short CBC 08/14/23 Range/Units 10:11 WBC 12.7 H (4.8-10.8) X10*3/uL Hgb 12.5 (12.0-16.0) g/dl Hct 36.6 L (37.0-47.0) % Plt Count 376 (160-400) X10*3/uL BMP 08/14/23 10:11 Sodium 139 Potassium 3.8 Chloride 104 Carbon Dioxide 25 BUN 11 Creatinine 0.82 Calcium 9.4 Liver Function 08/14/23 Range/Units 10:11 Total Bilirubin 0.3 (0.0-1.0) mg/dL Direct Bilirubin 0.1 (0.0-0.5) mg/dL AST 13 (5-31) U/L ALT 13 (0-31) U/L Alkaline Phosphatase 92 (39-117) U/L Albumin 4.3 (3.5-5.0) g/dL Urine 08/14/23 Range/Units 13:57 Urine Color Yellow Urine Appearance Clear Urine pH 6.5 (5.0-9.0) Ur Specific [place] <= 1.005 (1.005-1.025) Urine Protein Negative (Neg-Trace) mg/dL Urine Glucose (UA) Negative (Negative) mg/dL Imaging CT scan - pelvis: Radiologist's impression: ITS Impressions Doppler Study Ultrasound 08/14/23 13:08 IMPRESSION: 1. 11.3 cm cyst within the right adnexa/? Right ovary with several thin septations with slight vascular flow seen in one of the septations. This raises concern for low-grade cystic neoplasm. Gynecologic consult is recommended with consideration of MRI scan with IV contrast if clinically warranted. 2. Multiple tubular structures in the left adnexa best appreciated on the cine views which raises the possibility of a hydrosalpinx. 3. 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 Pelvic/Transvag US 08/14/23 13:08 IMPRESSION: 1. 11.3 cm cyst within the right adnexa/? Right ovary with several thin septations with slight vascular flow seen in one of the septations. This raises concern for low-grade cystic neoplasm. Gynecologic consult is recommended with consideration of MRI scan with IV contrast if clinically warranted. 2. Multiple tubular structures in the left adnexa best appreciated on the cine views which raises the possibility of a hydrosalpinx. 3. 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 Abdomen/Pelvis CT 08/14/23 15:10 IMPRESSION: Septated cystic cyst mass in the right adnexum concerning for low-grade cystic neoplasm. Left hydrosalpinx. One portion of the dilated tube versus a separate thin-walled cyst measuring 4 cm has intermediate attenuation fluid consistent with hemorrhage or proteinaceous debris. The rest of the hydrosalpinx has simple fluid attenuation. No surrounding inflammatory changes to strongly suggest tubo-ovarian abscess. No free fluid to suggest rupture. Gynecology consultation is recommended. Fleischner guidelines were followed. Assessment and Plan (1) Complex ovarian cyst: Status: Acute GC/CT, BV panel and Trichomonas taken. Discussed with the patient and her mother the finding on CT scan and pelvic ultrasound. No evidence of PID or TOA, or ovarian torsion. Discussed with the patient and her mother differential diagnosis of the finding including but not limited to be 9, pre malignant or malignant pathology. Addition discussed the patient admitted andres of the imaging to differentiate between malignancy and benign conditions. The patient has an with Dr. Burns , [facility] diesel maintenance electrician oncologist in a week. Instructions given the patient to come back to emergency room in case of fever above 100.4, nausea or vomiting, heavy vaginal bleeding, persistence or worsening of her pain and follow-up with diesel maintenance electrician Oncology in a week. All questions answered, the patient verbalized understanding. Time Spent With Patient Time: Total time managing care of this patient today ____ minutes.
[2023-08-14 16:25] VITALS: BP 109/56; PULSE 77; RESP 16; TEMP 36.7; O2SAT 97
--- NOTE | 2023-08-14 16:34 | MHC.EDTECH ---
THIS PCT SET UP AND HADOOP ADMINISTRATOR ,PROVIDER DURING PT PELVIC EXAM ,VAGINAL SAMPLE COLLECTED AND SENT TO LAB .
[2023-08-14 18:28] LABS: CT PCR NOT DETECTED (Not Detect.); NG PCR NOT DETECTED (Not Detect.)
[2023-08-15 13:00] LABS: BV Int Neg Control Negative (Negative); BV Int Pos Control Positive (Positive)
== END 2023-08-14 17:20 | disposition home or self-care (01) ==
PROVIDERS: Obstetrics & Gynecology; Physician Assistant; Emergency Provider Emergency Medicine Emergency Medical Services; PCP Internal Medicine
DX: N83.291 Other ovarian cyst, right side (principal); N70.11 Chronic salpingitis; R10.32 Left lower quadrant pain; F95.2 Tourette's disorder; Z79.899 Other long term (current) drug therapy
CPT/HCPCS: 0353U; 36415; 74177; 76830; 76856; 80048; 80076; 81001; 83690; 83735; 84702; 85025; 87480; 87510; 87660; 93975; 99284; Q9967

== ENCOUNTER → 2023-08-14 13:47 | Outpatient (BNV) | payer OTHER, SELFPAY | PROVIDERS: Emergency Provider Emergency Medicine Emergency Medical Services; PCP Internal Medicine; Visit Provider Obstetrics & Gynecology | DX: N83.299 Other ovarian cyst, unspecified side (principal) | CPT/HCPCS: 99283 ==

== ENCOUNTER 2023-08-21 10:12 | Outpatient (AMB) | payer OTHER, MEDICAID, SELFPAY ==
--- NOTE | 2023-08-21 10:18 | A.OFFVIS_ITS ---
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 Allergies Sulfa (Sulfonamide Antibiotics) [SULFA (SULFONAMIDE ANTIBIOTICS)] Allergy (Severe, Verified 08/21/23 10:18) HIVES potassium [Potassimin] Allergy (Intermediate, Verified 08/21/23 10:18) Unknown amoxicillin Allergy (Unknown, Verified 08/21/23 10:18) Unknown From AUGMENTIN Allergy (Severe, Uncoded 08/21/23 10:18) HIVES Medication List - Last Reconciled 08/21/23 by Shaniqua Mata MD baclofen 10 mg PO TID clonidine HCl 0.1 mg PO BID gabapentin 300 mg PO BEDTIME haloperidol 0.5 mg PO BID levothyroxine 100 mcg PO DAILY naproxen 500 mg PO BID onabotulinumtoxinA (Botox) 200 units subcut .every 3 months rimegepant (Nurtec ODT) 75 mg PO Q OTHER DAY 30 days topiramate 25 mg PO BID 30 days valsartan 20 mg PO BID HPI HPI Comments History of Present Illness Details History of present illness: ? 47y/o female with tourettes and chronic migraines comes for treatment with botox. She is being evaluated for ovarian mass. Her TICS have increased . she did not tolerate increase in clonidine in the past ??? frequent reported adverse reactions following injection of botox for chronic migraine include neck pain (9%), headache(5%), eyelid ptosis(4%), migraine(4%), muscular weakness(4%), musculuskeletal stiffness(4%), bronchitis(3%), injection site pain (3%, musculoskeletal pain(3%), myalgia(3%), facial paresis(2%), HTN(2%) and muscle spasms(2%) were discussed in detail. ??? Botulinum toxin typeA 200units Lot no [id number] expiration Nov 2025 was diluted with 4 cc of normal saline . ??? Muscles injected- ??? Frontalis 4 sites ??? Procerus 1 site ??? Administrative Director- 2 sites ??? Temporalis- 8 sites ??? Occipitalis- 6 sites ??? Cervical paraspinals- 4 sites ??? 5 units each ??? Trapezius- 6 sites- 10units each ??? Total use- 185units ??? Discarded-15units ??? She reports pain in the left occipital region, upper back and shoulder she was seen at [facility] for NBIA _MRI showing mineralizations of angelina basal ganglia and red nuclei her topiramate dose was increased 100mg bid, occipital nerve block was suggested [facility] Medical History Chronic migraine w/o aura w/o status migrainosus, not intractable Tourette syndrome Mentally challenged [place] (hard of hearing) Head ache Surgical History No pertinent past surgical history Social History Household Members Other:: MOTHER Alcohol intake: never Patient Tobacco Use Status: Never used Tobacco Current occupational status: unemployed and student Current occupation: [employer] Physical Exam Vital Signs: Last Vital Signs Pulse 82 08/21/23 10:19 Resp 17 08/21/23 10:19 BP 120/66 08/21/23 10:19 Pulse Ox 98 08/21/23 10:19 Oxygen Delivery Method Room Air 08/21/23 10:19 BMI result Body Mass Index 30.4 Const Other: Mild motor TICS Speech - slurred General: cooperative Orientation/consciousness: patient oriented x3 Neuro Other: neck - decreased range of motion and tightness General: patient oriented x3 Office Procedures Botulinum toxin Injection 31956 - Migraine Procedure code (CPT) selection complete Office Meds onabotulinumtoxinA 200 unit solution for injection Performing Provider: Shaniqua Mata MD Performing Location: [facility] [place] [facility] Administered by: Shaniqua Mata MD on 08/21/23 10:54 Dose Route Admin Location Dispensed Lot Number Expiration Date [facility] Boiler Room Operator 185 unit subcut 200 units [id number] 11/29/25 0119-0869-62 ALLERGAN/BOTOX Comments: see HPI Assessment & Plan Assessment & Plan (1) Migraine with aura, intractable, without status migrainosus: Code(s): G43.119 - Migraine with aura, intractable, without status migrainosus (2) Chronic migraine w/o aura w/o status migrainosus, not intractable: Code(s): G43.709 - Chronic migraine without aura, not intractable, without status migrainosus (3) Tourette syndrome: Code(s): F95.2 - Tourette's disorder (4) 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
[2023-08-21 10:19] VITALS: BP 120/66; PULSE 82; RESP 17; O2SAT 98; BMI 30.4
== END 2023-08-21 10:46 | disposition home or self-care (01) ==
PROVIDERS: PCP Internal Medicine; Visit Provider Psychiatry & Neurology Neurology
DX: G43.709 Chronic migraine without aura, not intractable, without status migrainosus (principal)
CPT/HCPCS: 64615

== ENCOUNTER → 2023-08-21 10:12 | Outpatient (BNVA) | payer OTHER, MEDICAID, SELFPAY | PROVIDERS: PCP Internal Medicine; Visit Provider Psychiatry & Neurology Neurology | DX: G43.119 Migraine with aura, intractable, without status migrainosus (principal); G43.709 Chronic migraine without aura, not intractable, without status migrainosus; G23.0 Hallervorden-Spatz disease; F95.2 Tourette's disorder | CPT/HCPCS: 64615; 99211; J0585 ==

== ENCOUNTER 2023-11-20 13:47 | Outpatient (AMB) | payer OTHER, SELFPAY ==
--- NOTE | 2023-11-20 14:04 | A.OFFVIS_ITS ---
Intake Vital Signs 11/20/23 14:09 Height 5 ft 2 in Weight 165 lb BMI 30.2 BP 112/76 Blood Pressure Location Lt brachial Position Sitting Respiration 17 Pulse 82 Pulse Source Pulse Oximeter Pulse Oximetry (%) 98 Oxygen Delivery Method Room Air Intake Visit Reasons: BOTOX - LVM Intake Note: Pt presents to the office for Botox injections. 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 Required: No Allergies Sulfa (Sulfonamide Antibiotics) [SULFA (SULFONAMIDE ANTIBIOTICS)] Allergy (Severe, Verified 11/20/23 14:08) HIVES potassium [Potassimin] Allergy (Intermediate, Verified 11/20/23 14:08) Unknown amoxicillin Allergy (Unknown, Verified 11/20/23 14:08) Unknown From AUGMENTIN Allergy (Severe, Uncoded 11/20/23 14:08) HIVES Medication List - Last Reconciled 11/20/23 by Shaniqua Mata MD baclofen 10 mg PO TID clonidine HCl 0.1 mg PO BID gabapentin 300 mg PO BEDTIME haloperidol 0.5 mg PO BID levothyroxine 100 mcg PO DAILY naproxen 500 mg PO BID onabotulinumtoxinA (Botox) 200 units subcut .every 3 months topiramate 25 mg PO BID 30 days valsartan 20 mg PO BID HPI HPI Comments History of Present Illness Details ? 48y/o female with tourettes and chronic migraines comes for treatment with botox. She is being evaluated for ovarian mass. Her TICS have increased . she did not tolerate increase in clonidine in the past How many migraine days prior to botox- 25-30 How long do the migraines last- 1-2days Intensity of migraine-severe ER visits related to migraine2 Effectiveness of botox from last two treatment(s) How many migraine days since receiving treatment:5-10days Change? in intensity of migraine?decreased Change in frequency of migraine?decreased Change in use of acute medication for migraine?decreased Change in quality of life?better ER visits related to migraine?none Have at least three months elapsed since last treatment (Last botox date - frequency of injections) 08/21/23 ??? frequent reported adverse reactions following injection of botox for chronic migraine include neck pain (9%), headache(5%), eyelid ptosis(4%), migraine(4%), muscular weakness(4%), musculuskeletal stiffness(4%), bronchitis(3%), injection site pain (3%, musculoskeletal pain(3%), myalgia(3%), facial paresis(2%), HTN(2%) and muscle spasms(2%) were discussed in detail. ??? Botulinum toxin typeA 200units Lot no [id number] expiration March 2026 was diluted with 4 cc of normal saline . ??? Muscles injected- ??? Frontalis 4 sites ??? Procerus 1 site ??? Cloth Finishing Range Operator Chief- 2 sites ??? Temporalis- 8 sites ??? Occipitalis- 6 sites ??? Cervical paraspinals- 4 sites ??? 5 units each ??? Trapezius- 6 sites- 10units each ??? Total use- 185units ??? Discarded-15units ??? she was seen at [facility] for NBIA _MRI showing mineralizations of angelina basal ganglia and red nuclei her topiramate dose was increased 100mg bid, occipital nerve block was suggested [facility] Medical History Chronic migraine w/o aura w/o status migrainosus, not intractable Tourette syndrome Mentally challenged [place] (hard of hearing) Head ache Surgical History No pertinent past surgical history Social History Household Members Other:: MOTHER Alcohol intake: never Patient Tobacco Use Status: Never used Tobacco Current occupational status: unemployed and student Current occupation: [employer] Physical Exam Vital Signs: Last Vital Signs Pulse 82 11/20/23 14:09 Resp 17 11/20/23 14:09 BP 112/76 11/20/23 14:09 Pulse Ox 98 11/20/23 14:09 Oxygen Delivery Method Room Air 11/20/23 14:09 BMI result Body Mass Index 30.2 Const Other: Mild motor TICS Speech - slurred General: cooperative Orientation/consciousness: patient oriented x3 Neuro Other: neck - decreased range of motion and tightness General: patient oriented x3 Office Procedures Botulinum toxin Injection 94621 - Migraine Procedure code (CPT) selection complete Office Meds onabotulinumtoxinA 200 unit solution for injection Performing Provider: Shaniqua Mata MD [place] [facility] [place] [facility] Administered by: Shaniqua Mata MD on 11/20/23 14:36 Dose Route Admin Location Dispensed Lot Number Expiration Date [facility] Non Emergency Services Ambulance Driver 185 unit IM 200 units [id number] 03/29/26 5375-9703-83 ALLERGAN/BOTOX Comments: see HPI Assessment & Plan Assessment & Plan (1) Migraine with aura, intractable, without status migrainosus: Code(s): G43.119 - Migraine with aura, intractable, without status migrainosus (2) Chronic migraine w/o aura w/o status migrainosus, not intractable: Code(s): G43.709 - Chronic migraine without aura, not intractable, without status migrainosus (3) Tourette syndrome: Code(s): F95.2 - Tourette's disorder (4) 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
[2023-11-20 14:09] VITALS: BP 112/76; PULSE 82; RESP 17; O2SAT 98; BMI 30.2
== END 2023-11-20 14:34 | disposition home or self-care (01) ==
PROVIDERS: PCP Internal Medicine; Visit Provider Psychiatry & Neurology Neurology
DX: G43.119 Migraine with aura, intractable, without status migrainosus (principal); G23.0 Hallervorden-Spatz disease; F95.2 Tourette's disorder
CPT/HCPCS: 64615

== ENCOUNTER → 2023-11-20 13:47 | Outpatient (BNVA) | payer OTHER, MEDICAID, SELFPAY | PROVIDERS: PCP Internal Medicine; Visit Provider Psychiatry & Neurology Neurology | DX: G43.709 Chronic migraine without aura, not intractable, without status migrainosus (principal); G43.119 Migraine with aura, intractable, without status migrainosus; F95.2 Tourette's disorder; G23.0 Hallervorden-Spatz disease | CPT/HCPCS: 64615; 99211; J0585 ==

== ENCOUNTER 2024-01-04 14:22 | Outpatient (REF) | payer OTHER, SELFPAY | END 2024-01-04 14:23 | disposition home or self-care (01) | LOC: HO.MAMMO 14:22 | PROVIDERS: PCP Internal Medicine; Visit Provider Internal Medicine | DX: Z12.31 Encounter for screening mammogram for malignant neoplasm of breast (principal) | CPT/HCPCS: 77063; 77067 ==

== ENCOUNTER → 2024-01-04 14:30 | Outpatient (BNV) | payer OTHER, SELFPAY | PROVIDERS: PCP Internal Medicine; Visit Provider Radiology Diagnostic Radiology | DX: Z12.31 Encounter for screening mammogram for malignant neoplasm of breast (principal) | CPT/HCPCS: 77063; 77067 ==

== ENCOUNTER 2024-01-12 07:51 | Outpatient (REF) | payer OTHER, SELFPAY ==
[2024-01-12 09:04] LABS: Alanine Aminotransferase 20 U/L (0-31); Albumin Level 4.3 g/dL (3.5-5.0); Alkaline Phosphatase 91 U/L (39-117); Anion Gap 12 (12-20); Aspartate Amino Transferase 17 U/L (5-31); Bilirubin Total 0.5 mg/dL (0.0-1.0); Blood Urea Nitrogen 13 mg/dL (9-16); Calcium 9.5 mg/dL (8.4-10.2); Carbon Dioxide 28 mmol/L (22-29); Chloride 104 mmol/L (96-108); Estimated Glomerular Filt Rate > 60; Glucose Random 105 mg/dL (60-115); Potassium 3.8 mmol/L (3.3-5.1); Sodium 140 mmol/L (135-145); Total Protein 7.5 g/dL (6.5-8.0)
[2024-01-12 09:21] LABS: Thyroid Stimulating Hormone 3.48 uIU/mL (0.32-4.0)
== END 2024-01-12 07:52 | disposition home or self-care (01) ==
LOC: HO.LAB 07:51
PROVIDERS: PCP Internal Medicine; Visit Provider Internal Medicine
DX: E03.9 Hypothyroidism, unspecified (principal); I10 Essential (primary) hypertension; N83.291 Other ovarian cyst, right side; R10.9 Unspecified abdominal pain
CPT/HCPCS: 36415; 80053; 84443

== ENCOUNTER 2024-01-17 15:53 | Outpatient (REF) | payer OTHER, SELFPAY ==
--- NOTE | ~2024-01-17 | XR_ITS ---
EXAMINATION: XR KNEE, LEFT CLINICAL INFORMATION: Osteoarthritis left knee. COMPARISON: 07/20/2022. TECHNIQUE: Four views of the left knee. FINDINGS: Moderate suprapatellar effusion. [id number] narrowing of the medial compartment with subchondral sclerosis and marginal osteophytes. Narrowing of the patellofemoral compartment with prominent osteophytes. There has been overall progression of degenerative changes. XR/XR knee LT 4V IMPRESSION: [id number] degenerative changes.
== END 2024-01-17 15:54 | disposition home or self-care (01) ==
LOC: HO.XRAY 15:53
PROVIDERS: PCP Internal Medicine; Visit Provider Internal Medicine
DX: M17.12 Unilateral primary osteoarthritis, left knee (principal)
CPT/HCPCS: 73564

== ENCOUNTER 2024-02-27 14:51 | Outpatient (AMB) | payer OTHER, MEDICAID, SELFPAY ==
--- NOTE | 2024-02-27 14:52 | MHC.OFFVIS ---
Vital Signs 02/27/24 15:08 Height 5 ft 2 in Weight 168 lb 4 oz BMI 30.8 BP 108/70 Blood Pressure Location Rt brachial Position Sitting Respiration 16 Pulse 90 Pulse Source Pulse Oximeter Pulse Oximetry (%) 98 Oxygen Delivery Method Room Air Intake Visit Reasons: Botox-LVM Intake Note: Pt presents to the office for Botox injections. Human Resources Executive Assistant Required: No Allergies Sulfa (Sulfonamide Antibiotics) [SULFA (SULFONAMIDE ANTIBIOTICS)] Allergy (Severe, Verified 02/27/24 14:53) HIVES potassium [Potassimin] Allergy (Intermediate, Verified 02/27/24 14:53) Unknown amoxicillin Allergy (Unknown, Verified 02/27/24 14:53) Unknown From AUGMENTIN Allergy (Severe, Uncoded 02/27/24 14:53) HIVES Medication List - Last Reconciled 02/27/24 by Shaniqua Mata MD baclofen 10 mg PO TID clonidine HCl 0.1 mg PO BID gabapentin 300 mg PO BEDTIME haloperidol 0.5 mg PO BID levothyroxine 100 mcg PO DAILY naproxen 500 mg PO BID onabotulinumtoxinA (Botox) 200 units subcut .every 3 months topiramate 25 mg PO BID 30 days valsartan 20 mg PO BID HPI Comments Details: ? 48y/o female with tourettes and chronic migraines comes for treatment with botox. She is being evaluated for ovarian mass. Her TICS have increased . she did not tolerate increase in clonidine in the past How many migraine days prior to botox- 25-30 How long do the migraines last- 1-2days Intensity of migraine-severe ER visits related to migraine2 Effectiveness of botox from last two treatment(s) How many migraine days since receiving treatment:5-10days Change? in intensity of migraine?decreased Change in frequency of migraine?decreased Change in use of acute medication for migraine?decreased Change in quality of life?better ER visits related to migraine?none Have at least three months elapsed since last treatment (Last botox date - frequency of injections) 08/21/23 ??? frequent reported adverse reactions following injection of botox for chronic migraine include neck pain (9%), headache(5%), eyelid ptosis(4%), migraine(4%), muscular weakness(4%), musculuskeletal stiffness(4%), bronchitis(3%), injection site pain (3%, musculoskeletal pain(3%), myalgia(3%), facial paresis(2%), HTN(2%) and muscle spasms(2%) were discussed in detail. ??? Botulinum toxin typeA 200units Lot no [id number] expiration March 2026 was diluted with 4 cc of normal saline . ??? Muscles injected- ??? Frontalis 4 sites ??? Procerus 1 site ??? Master Control Technician- 2 sites ??? Temporalis- 8 sites ??? Occipitalis- 6 sites ??? Cervical paraspinals- 4 sites ??? 5 units each ??? Trapezius- 6 sites- 10units each ??? Total use- 185units ??? Discarded-15units ??? she was seen at [facility] for NBIA _MRI showing mineralizations of angelina basal ganglia and red nuclei her topiramate dose was increased 100mg bid, occipital nerve block was suggested [facility] Medical History Chronic migraine w/o aura w/o status migrainosus, not intractable Tourette syndrome Mentally challenged [place] (hard of hearing) Head ache Surgical History No pertinent past surgical history Social History Household Members Other:: MOTHER Alcohol intake: never Patient Tobacco Use Status: Never used Tobacco Current occupational status: unemployed and student Current occupation: [employer] Physical Exam Vital Signs: Last Vital Signs Pulse 90 02/27/24 15:08 Resp 16 02/27/24 15:08 BP 108/70 02/27/24 15:08 Pulse Ox 98 02/27/24 15:08 Oxygen Delivery Method Room Air 02/27/24 15:08 BMI result Body Mass Index 30.8 Const Other: Mild motor TICS Speech - slurred General: cooperative Orientation/consciousness: patient oriented x3 Neuro Other: neck - decreased range of motion and tightness General: patient oriented x3 Office Procedures Botulinum toxin Injection 18742 - Migraine Procedure code (CPT) selection complete Office Meds onabotulinumtoxinA 200 unit solution for injection Performing Provider: Shaniqua Mata MD Performing Location: [facility] [place] [facility] Administered by: Shaniqua Mata MD on 02/27/24 15:30 Dose Route Admin Location Dispensed Lot Number Expiration Date [facility] Form Set[employer] 185 unit IM 200 units [id number] 03/29/26 2299-7446-50 ALLERGAN/BOTOX Comments: see hpi Assessment & Plan Assessment & Plan (1) Migraine with aura, intractable, without status migrainosus: Code(s): G43.119 - Migraine with aura, intractable, without status migrainosus Category: Medical (2) Chronic migraine w/o aura w/o status migrainosus, not intractable: Code(s): G43.709 - Chronic migraine without aura, not intractable, without status migrainosus Category: Medical (3) Tourette syndrome: Code(s): F95.2 - Tourette's disorder Category: Medical (4) 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
[2024-02-27 15:08] VITALS: BP 108/70; PULSE 90; RESP 16; O2SAT 98; BMI 30.8
== END 2024-02-27 15:26 | disposition home or self-care (01) ==
PROVIDERS: PCP Internal Medicine; Visit Provider Psychiatry & Neurology Neurology
DX: G43.E19 Chronic migraine with aura, intractable, without status migrainosus (principal)
CPT/HCPCS: 64615

== ENCOUNTER → 2024-02-27 14:51 | Outpatient (BNVA) | payer OTHER, MEDICAID, SELFPAY | PROVIDERS: PCP Internal Medicine; Visit Provider Psychiatry & Neurology Neurology | DX: G43.E19 Chronic migraine with aura, intractable, without status migrainosus (principal); F95.2 Tourette's disorder; G23.0 Hallervorden-Spatz disease | CPT/HCPCS: 64615; 99211; J0585 ==

== ENCOUNTER → 2024-04-11 13:11 | Outpatient (BNVA) | payer OTHER, MEDICAID, SELFPAY | PROVIDERS: PCP Internal Medicine; Visit Provider Orthopaedic Surgery | DX: M17.12 Unilateral primary osteoarthritis, left knee (principal) | CPT/HCPCS: 99202 ==

== ENCOUNTER 2024-05-29 13:49 | Outpatient (AMB) | payer OTHER, SELFPAY ==
[2024-05-29 13:56] VITALS: BP 108/60; PULSE 91; RESP 16; O2SAT 99; BMI 30.6
--- NOTE | 2024-05-29 13:56 | MHC.OFFVIS ---
Vital Signs 05/29/24 13:56 Height 5 ft 2 in Weight 167 lb 9 oz BMI 30.6 BP 108/60 Blood Pressure Location Rt brachial Position Sitting Respiration 16 Pulse 91 Pulse Source Pulse Oximeter Pulse Oximetry (%) 99 Oxygen Delivery Method Room Air Intake Visit Reasons: Botox - LVM w/add Intake Note: Pt presents to the office for Botox injections for chronic migraines. Solar System Designer Required: No Allergies Sulfa (Sulfonamide Antibiotics) [SULFA (SULFONAMIDE ANTIBIOTICS)] Allergy (Severe, Verified 05/29/24 13:56) HIVES potassium [Potassimin] Allergy (Intermediate, Verified 05/29/24 13:56) Unknown amoxicillin Allergy (Unknown, Verified 05/29/24 13:56) Unknown From AUGMENTIN Allergy (Severe, Uncoded 05/29/24 13:56) HIVES Medication List - Last Reconciled 05/29/24 by Shaniqua Mata MD baclofen 10 mg PO TID citalopram 20 mg PO DAILY clonidine HCl 0.1 mg PO BID gabapentin 300 mg PO BEDTIME haloperidol 0.5 mg PO BID levothyroxine 50 mcg PO DAILY loratadine (Allergy Relief (loratadine)) 10 mg PO DAILY metoprolol succinate ER 50 mg PO DAILY naproxen 500 mg PO BID omeprazole 20 mg PO DAILY onabotulinumtoxinA (Botox) 200 units subcut .every 3 months pramipexole 1 mg PO BEDTIME pravastatin 40 mg PO DAILY topiramate 25 mg PO BID 30 days valsartan 160 mg PO BID HPI Comments Details: ? 48y/o female with tourettes and chronic migraines comes for treatment with botox. She is being evaluated for ovarian mass. Her TICS have increased . she did not tolerate increase in clonidine in the past How many migraine days prior to botox- 25-30 How long do the migraines last- 1-2days Intensity of migraine-severe ER visits related to migraine2 Effectiveness of botox from last two treatment(s) How many migraine days since receiving treatment:5-10days Change? in intensity of migraine?decreased Change in frequency of migraine?decreased Change in use of acute medication for migraine?decreased Change in quality of life?better ER visits related to migraine?none Have at least three months elapsed since last treatment (Last botox date - frequency of injections) 02/19 ??? frequent reported adverse reactions following injection of botox for chronic migraine include neck pain (9%), headache(5%), eyelid ptosis(4%), migraine(4%), muscular weakness(4%), musculuskeletal stiffness(4%), bronchitis(3%), injection site pain (3%, musculoskeletal pain(3%), myalgia(3%), facial paresis(2%), HTN(2%) and muscle spasms(2%) were discussed in detail. ??? Botulinum toxin typeA 200units Lot no [id number] expiration Sep 2026 was diluted with 4 cc of normal saline . ??? Muscles injected- ??? Frontalis 4 sites ??? Procerus 1 site ??? Pricing Associate- 2 sites ??? Temporalis- 8 sites ??? Occipitalis- 6 sites ??? Cervical paraspinals- 4 sites ??? 5 units each ??? Trapezius- 6 sites- 10units each ??? Total use- 185units ??? Discarded-15units ??? she was seen at [facility] for NBIA _MRI showing mineralizations of angelina basal ganglia and red nuclei her topiramate dose was increased 100mg bid, occipital nerve block was suggested [facility] Medical History (Updated 05/29/24 @ 14:18 by Shaniqua Mata MD) Chronic migraine without aura, intractable, without status migrainosus Chronic migraine w/o aura w/o status migrainosus, not intractable Tourette syndrome Mentally challenged [place] (hard of hearing) Head ache Surgical History No pertinent past surgical history Social History Household Members Other:: MOTHER Alcohol intake: never Patient Tobacco Use Status: Never used Tobacco Current occupational status: unemployed Current occupation: [employer] Physical Exam Const Other: Mild motor TICS Speech - slurred General: cooperative Orientation/consciousness: patient oriented x3 Neuro Other: neck - decreased range of motion and tightness General: patient oriented x3 Office Procedures Botulinum toxin Injection 09802 - Migraine Procedure code (CPT) selection complete Office Meds onabotulinumtoxinA 200 unit solution for injection Performing Provider: Shaniqua Mata MD Performing Location: [facility] Administered by: Shaniqua Mata MD on 05/29/24 14:26 Dose Route Admin Location Dispensed Lot Number Expiration Date [employer] Community Relations Coordinator 185 unit subcut 200 units [id number] 09/28/26 5518-4236-29 ALLERGAN/BOTOX Comments: see HPI Assessment & Plan Assessment & Plan (1) Chronic migraine without aura, intractable, without status migrainosus: Code(s): G43.719 - Chronic migraine without aura, intractable, without status migrainosus Category: Medical (2) Migraine with aura, intractable, without status migrainosus: Code(s): G43.119 - Migraine with aura, intractable, without status migrainosus Category: Medical (3) Tourette syndrome: Code(s): F95.2 - Tourette's disorder Category: Medical (4) 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 Oh[facility] at [facility] for NBIA Nurtec 75mg qod - her headaches have stabilized with nurtec and botox Orders: Orders AMB Botulinum toxin Injection Today G43.719 - Chronic migraine without aura, intractable, without status migrainosus Medications: New onabotulinumtoxinA 200 units subcut ONCE 1 ea 0RF migraine G43.719 - Chronic migraine without aura, intractable, without status migrainosus Coding Level of Care Code Est Pt Level 1 (79739) Diagnoses Chronic migraine without aura, intractable, without status migrainosus G43.719 Migraine with aura, intractable, without status migrainosus G43.119 Tourette syndrome F95.2 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
== END 2024-05-29 14:18 | disposition home or self-care (01) ==
PROVIDERS: PCP Internal Medicine; Visit Provider Psychiatry & Neurology Neurology
DX: G43.719 Chronic migraine without aura, intractable, without status migrainosus (principal)
CPT/HCPCS: 64615

== ENCOUNTER → 2024-05-29 13:49 | Outpatient (BNVA) | payer OTHER, MEDICAID, SELFPAY | PROVIDERS: PCP Internal Medicine; Visit Provider Psychiatry & Neurology Neurology | DX: G43.E19 Chronic migraine with aura, intractable, without status migrainosus (principal); F95.2 Tourette's disorder; G23.0 Hallervorden-Spatz disease | CPT/HCPCS: 64615; 99211; J0585 ==

== ENCOUNTER 2024-06-05 14:35 | Outpatient (AMB) | payer OTHER, MEDICAID, SELFPAY ==
--- NOTE | 2024-06-05 14:39 | A.OFFVIS_ITS ---
Intake Visit Reasons: Inj- LT knee Durolane injection Intake Note: Makeda is a 48 year old female who presents today with her mother Marie for complaints of left knee. 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 Her pain has been ongoing for about a year. Patient experiences discomfort during ambulation. She had xrays done and Makeda's PCP informed her it looked like bone on bone. She takes Advil which does provide her relief. She has had cortisone injections which gave her no relief. She wishes to hold off on total knee replacement surgery if at all possible. She has not had a viscosupplementation injection. Allergies Sulfa (Sulfonamide Antibiotics) [SULFA (SULFONAMIDE ANTIBIOTICS)] Allergy (Severe, Verified 06/05/24 14:40) HIVES potassium [Potassimin] Allergy (Intermediate, Verified 06/05/24 14:40) Unknown amoxicillin Allergy (Unknown, Verified 06/05/24 14:40) Unknown From AUGMENTIN Allergy (Severe, Uncoded 06/05/24 14:40) HIVES Medication List - Last Reconciled 06/05/24 by Yony Kilpatrick MD baclofen 10 mg PO TID citalopram 20 mg PO DAILY clonidine HCl 0.1 mg PO BID gabapentin 300 mg PO BEDTIME haloperidol 0.5 mg PO BID levothyroxine 50 mcg PO DAILY loratadine (Allergy Relief (loratadine)) 10 mg PO DAILY metoprolol succinate ER 50 mg PO DAILY naproxen 500 mg PO BID omeprazole 20 mg PO DAILY onabotulinumtoxinA (Botox) 200 units subcut .every 3 months pramipexole 1 mg PO BEDTIME pravastatin 40 mg PO DAILY topiramate 25 mg PO BID 30 days valsartan 160 mg PO BID [facility] Medical History (Updated 06/05/24 @ 15:24 by Yony Kilpatrick MD) Chronic migraine without aura, intractable, without status migrainosus Chronic migraine w/o aura w/o status migrainosus, not intractable Tourette syndrome Mentally challenged [place] (hard of hearing) Head ache Surgical History No pertinent past surgical history Social History Household Members Other:: MOTHER Alcohol intake: never Patient Tobacco Use Status: Never used Tobacco Current occupational status: unemployed Current occupation: [employer] Physical Exam Const Other: Well-nourished well-developed very friendly female awake alert and oriented x3 in no acute distress Extrem Other: Bilateral lower extremity examination shows good capillary refill, no skin lesions noted, normal sensation light touch Left knee examination shows a minimal effusion, palpable crepitus with range of motion, pain with range of motion, range of motion from -3 degrees to 120 degrees, her patella tracks well Office Procedures Joint Injection/Aspiration Joint Injection/Aspiration Primary Site: left knee Prep: site was prepped using aseptic technique Injected: 60 mg of (Durolane viscosupplementation) and 1% plain lidocaine Procedure: The patient tolerated the procedure well Coding - Large joint Procedure code (CPT) selection complete Results Reviewed Results Reviewed: X-rays of the patient's left knee show joint space narrowing, subchondral sclerosis, osteophyte formation, no acute bony abnormalities Assessment & Plan Assessment & Plan (1) Osteoarthritis of left knee: Code(s): M17.12 - Unilateral primary osteoarthritis, left knee Category: Medical Plan Ms. Orellana presents with left knee pain due to degenerative joint disease. I had a lengthy discussion with the patient regarding the treatment options. The risks and benefits of a Durolane viscosupplementation injection were discussed at length with the patient. The patient wished to proceed. She tolerated the injection well. She will continue with her home exercise program. She will follow up with me on an as-needed basis should her symptoms not plateau at an unacceptable level over the next few months. Feel free to call me at any time should questions regarding her orthopedic management arise. I spent 21 minutes in reviewing the patient's records and imaging studies, seeing the patient and documenting in the medical record. Orders: Orders AMB Joint Injection/Aspiration Today M17.12 - Unilateral primary osteoarthritis, left knee Coding Level of Care Code Est Pt Level 3 (26181) Diagnoses Osteoarthritis of left knee M17. CPT Codes Coding - Large joint: 27726 - Large joint ([id number])
== END 2024-06-05 15:12 | disposition home or self-care (01) ==
PROVIDERS: PCP Internal Medicine; Visit Provider Orthopaedic Surgery
DX: M17.12 Unilateral primary osteoarthritis, left knee (principal)
CPT/HCPCS: 20610; 99213

== ENCOUNTER → 2024-06-05 14:35 | Outpatient (BNVA) | payer OTHER, MEDICAID, SELFPAY | PROVIDERS: PCP Internal Medicine; Visit Provider Orthopaedic Surgery | DX: M17.12 Unilateral primary osteoarthritis, left knee (principal) | CPT/HCPCS: 20610; 99212; J7318 ==

== ENCOUNTER 2024-07-26 07:27 | Outpatient (REF) | payer MEDICARE, MEDICAID, SELFPAY ==
[2024-07-26 08:36] LABS: Alanine Aminotransferase 22 U/L (0-31); Albumin Level 4.4 g/dL (3.5-5.0); Alkaline Phosphatase 90 U/L (39-117); Anion Gap 12 (12-20); Aspartate Amino Transferase 16 U/L (5-31); Bilirubin Total 0.4 mg/dL (0.0-1.0); Blood Urea Nitrogen 15 mg/dL (9-16); Calcium 9.9 mg/dL (8.4-10.2); Carbon Dioxide 29 mmol/L (22-29); Chloride 104 mmol/L (96-108); Cholesterol 232 mg/dL (<200); Estimated Glomerular Filt Rate > 60; Glucose Random 114 mg/dL (60-115); HDL Cholesterol 45 mg/dL (>40); LDL Cholesterol Calculated 161 mg/dL (<100); Sodium 141 mmol/L (135-145); Total Protein 7.5 g/dL (6.5-8.0); Triglycerides 130 mg/dL (<150)
[2024-07-26 08:51] LABS: Thyroid Stimulating Hormone 3.93 uIU/mL (0.32-4.0)
== END 2024-07-26 07:28 | disposition home or self-care (01) ==
LOC: HO.LAB 07:27
PROVIDERS: PCP Internal Medicine; Visit Provider Internal Medicine
DX: E03.9 Hypothyroidism, unspecified (principal); E78.2 Mixed hyperlipidemia; I10 Essential (primary) hypertension; M22.2X2 Patellofemoral disorders, left knee
CPT/HCPCS: 36415; 80053; 80061; 84443

== ENCOUNTER 2024-09-03 13:48 | Outpatient (AMB) | payer MEDICARE, MEDICAID, SELFPAY ==
--- NOTE | 2024-09-03 14:08 | A.OFFVIS_ITS ---
Intake Visit Reasons: Botox Intake Note: Patient presents for botox. Allergies Sulfa (Sulfonamide Antibiotics) [SULFA (SULFONAMIDE ANTIBIOTICS)] Allergy (Severe, Verified 09/03/24 14:11) HIVES potassium [Potassimin] Allergy (Intermediate, Verified 09/03/24 14:11) Unknown amoxicillin Allergy (Unknown, Verified 09/03/24 14:11) Unknown From AUGMENTIN Allergy (Severe, Uncoded 09/03/24 14:11) HIVES Medication List - Last Reconciled 09/03/24 by Shaniqua Mata MD baclofen 10 mg PO TID citalopram 20 mg PO DAILY clonidine HCl 0.1 mg PO BID gabapentin 300 mg PO BEDTIME haloperidol 0.5 mg PO TID levothyroxine 50 mcg PO DAILY loratadine (Allergy Relief (loratadine)) 10 mg PO DAILY metoprolol succinate ER 50 mg PO DAILY naproxen 500 mg PO BID omeprazole 20 mg PO DAILY onabotulinumtoxinA (Botox) 200 units subcut .every 3 months pramipexole 1 mg PO BEDTIME pravastatin 40 mg PO DAILY topiramate 25 mg PO BID 30 days valsartan 160 mg PO BID HPI Comments Details: ? 48y/o female with tourettes and chronic migraines comes for treatment with botox. She is being evaluated for ovarian mass. Her TICS have increased . she did not tolerate increase in clonidine in the past How many migraine days prior to botox- 25-30 How long do the migraines last- 1-2days Intensity of migraine-severe ER visits related to migraine2 Effectiveness of botox from last two treatment(s) How many migraine days since receiving treatment:5-10days Change? in intensity of migraine?decreased Change in frequency of migraine?decreased Change in use of acute medication for migraine?decreased Change in quality of life?better ER visits related to migraine?none Have at least three months elapsed since last treatment (Last botox date - frequency of injections) 05/21 ??? frequent reported adverse reactions following injection of botox for chronic migraine include neck pain (9%), headache(5%), eyelid ptosis(4%), migraine(4%), muscular weakness(4%), musculuskeletal stiffness(4%), bronchitis(3%), injection site pain (3%, musculoskeletal pain(3%), myalgia(3%), facial paresis(2%), HTN(2%) and muscle spasms(2%) were discussed in detail. ??? Botulinum toxin typeA 200units Lot no [id number] expiration Nov 2026 was diluted with 4 cc of normal saline . ??? Muscles injected- ??? Frontalis 4 sites ??? Procerus 1 site ??? Dispatcher Radioactive Waste Disposal- 2 sites ??? Temporalis- 8 sites ??? Occipitalis- 6 sites ??? Cervical paraspinals- 4 sites ??? 5 units each ??? Trapezius- 6 sites- 10units each ??? Total use- 185units ??? Discarded-15units ??? she was seen at [facility] for NBIA _MRI showing mineralizations of angelina basal ganglia and red nuclei her topiramate dose was increased 100mg bid, occipital nerve block was suggested [facility] Medical History Chronic migraine without aura, intractable, without status migrainosus Chronic migraine w/o aura w/o status migrainosus, not intractable Tourette syndrome Mentally challenged [place] (hard of hearing) Head ache Surgical History No pertinent past surgical history Social History Household Members Other:: MOTHER Alcohol intake: never Patient Tobacco Use Status: Never used Tobacco Current occupational status: unemployed Current occupation: [employer] Physical Exam Const Other: Mild motor TICS Speech - slurred General: cooperative Orientation/consciousness: patient oriented x3 Neuro Other: neck - decreased range of motion and tightness General: patient oriented x3 Office Procedures Botulinum toxin Injection 68037 - Migraine Procedure code (CPT) selection complete Office Meds onabotulinumtoxinA 200 unit solution for injection Performing Provider: Shaniqua Mata MD Performing Location: [facility] [place] [facility] Administered by: Shaniqua Mata MD on 09/03/24 14:44 Dose Route Admin Location Dispensed Lot Number Expiration Date [facility] Machine Chocolate Molder 200 unit subcut 200 units [id number] 11/29/26 6877-8268-63 ALLERGAN/BOTOX Comments: see HPI Assessment & Plan Assessment & Plan (1) Chronic migraine without aura, intractable, without status migrainosus: Code(s): G43.719 - Chronic migraine without aura, intractable, without status migrainosus Category: Medical (2) Migraine with aura, intractable, without status migrainosus: Code(s): G43.119 - Migraine with aura, intractable, without status migrainosus Category: Medical (3) Tourette syndrome: Code(s): F95.2 - Tourette's disorder Category: Medical (4) 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 Ohara at [facility] for NBIA Nurtec 75mg qod - her headaches have stabilized with nurtec and botox Orders: Orders AMB Botulinum toxin Injection Today G43.719 - Chronic migraine without aura, intractable, without status migrainosus Medications: New onabotulinumtoxinA 200 units subcut ONCE 1 ea 0RF Migraine G43.719 - Chronic migraine without aura, intractable, without status migrainosus Coding Level of Care Code Est Pt Level 1 (84737) Diagnoses Chronic migraine without aura, intractable, without status migrainosus G43.719 Migraine with aura, intractable, without status migrainosus G43.119 Tourette syndrome F95.2 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
== END 2024-09-03 14:38 | disposition home or self-care (01) ==
LOC: HO.HSMS 13:49
PROVIDERS: PCP Internal Medicine; Visit Provider Psychiatry & Neurology Neurology
DX: G43.E19 Chronic migraine with aura, intractable, without status migrainosus (principal)
CPT/HCPCS: 64615

== ENCOUNTER → 2024-09-03 13:48 | Outpatient (BNVA) | payer MEDICARE, MEDICAID, SELFPAY | PROVIDERS: PCP Internal Medicine; Visit Provider Psychiatry & Neurology Neurology | DX: G43.E19 Chronic migraine with aura, intractable, without status migrainosus (principal); F95.2 Tourette's disorder; G23.0 Hallervorden-Spatz disease | CPT/HCPCS: 64615; 99211; J0585 ==

== ENCOUNTER 2024-09-04 10:03 | Outpatient (AMB) | payer MEDICARE, MEDICAID, SELFPAY ==
--- NOTE | 2024-09-04 10:05 | A.OFFVIS_ITS ---
Vital Signs 09/04/24 10:06 Height 5 ft 2 in Weight 167 lb BMI 30.5 Intake Visit Reasons: Left knee pain Intake Note: Makeda is a 48 yo female who presents with complaints of progressively worsening left knee pain. She describes her pain as sharp in nature. She has tried Tylenol and anti-inflammatory medicines as well as muscle relaxants which gave her minimal relief. She has had Durolane viscosupplementation injections in the past which gave her very good relief. She has also had cortisone injections which gave her mild relief. She wishes to hold off on surgery for as long as possible. She has done physical therapy exercises which aggravated her pain. Allergies Sulfa (Sulfonamide Antibiotics) [SULFA (SULFONAMIDE ANTIBIOTICS)] Allergy (Severe, Verified 09/04/24 10:05) HIVES potassium [Potassimin] Allergy (Intermediate, Verified 09/04/24 10:05) Unknown amoxicillin Allergy (Unknown, Verified 09/04/24 10:05) Unknown From AUGMENTIN Allergy (Severe, Uncoded 09/04/24 10:05) HIVES Medication List - Last Reconciled 09/04/24 by Yony Kilpatrick MD baclofen 10 mg PO TID citalopram 20 mg PO DAILY clonidine HCl 0.1 mg PO BID gabapentin 300 mg PO BEDTIME haloperidol 0.5 mg PO TID levothyroxine 50 mcg PO DAILY loratadine (Allergy Relief (loratadine)) 10 mg PO DAILY metoprolol succinate ER 50 mg PO DAILY naproxen 500 mg PO BID omeprazole 20 mg PO DAILY onabotulinumtoxinA (Botox) 200 units subcut .every 3 months pramipexole 1 mg PO BEDTIME pravastatin 40 mg PO DAILY topiramate 25 mg PO BID 30 days valsartan 160 mg PO BID [facility] Medical History Chronic migraine without aura, intractable, without status migrainosus Chronic migraine w/o aura w/o status migrainosus, not intractable Tourette syndrome Mentally challenged [place] (hard of hearing) Head ache Surgical History No pertinent past surgical history Social History Household Members Other:: MOTHER Alcohol intake: never Patient Tobacco Use Status: Never used Tobacco Current occupational status: unemployed Current occupation: [employer] Physical Exam Vital Signs: BMI result Body Mass Index 30.5 Const Other: Well-nourished well-developed very friendly female awake alert and oriented x3 in no acute distress Extrem Other: Bilateral lower extremity examination shows good capillary refill, no skin lesions noted, normal sensation light touch Left knee examination shows a minimal effusion, palpable crepitus with range of motion, pain with range of motion, no instability Office Procedures AMB Joint Injection/Aspiration Joint Injection/Aspiration Primary Site: left knee Prep: site was prepped using aseptic technique Injected: 40 mg of, DepoMedrol and 1% plain lidocaine Procedure: The patient tolerated the procedure well Coding - Large joint Procedure code (CPT) selection complete Assessment & Plan Assessment & Plan (1) Osteoarthritis of left knee: Code(s): M17.12 - Unilateral primary osteoarthritis, left knee Category: Medical (2) Left knee pain: Code(s): M25.562 - Pain in left knee Plan Ms. Orellana presents with left knee pain due to osteoarthritis. The risks and benefits of a left knee cortisone injection were discussed at length with the patient. The patient wished to proceed. She tolerated the injection well. If she does not get lasting relief from the cortisone injection I will see whether or not her insurance company will cover another Durolane viscosupplementation injection. I will see her back once the injection is available. Feel free to call me at any time should questions regarding her orthopedic management arise. I spent 22 minutes in reviewing the patient's records and imaging studies, seeing the patient and documenting in the medical record. Orders: Orders AMB Joint Injection/Aspiration Today M17.12 - Unilateral primary osteoarthritis, left knee Coding Level of Care Code Est Pt Level 3 (18515) Complex EM visit Add On G2211 Diagnoses Osteoarthritis of left knee M17.12 Left knee pain M25.562 CPT Codes Coding - 13087 Large joint: 80536 - Large joint ([id number])
[2024-09-04 10:06] VITALS: BMI 30.5
== END 2024-09-04 10:40 | disposition home or self-care (01) ==
PROVIDERS: PCP Internal Medicine; Visit Provider Orthopaedic Surgery
DX: M17.12 Unilateral primary osteoarthritis, left knee (principal)
CPT/HCPCS: 20610; 99213

== ENCOUNTER → 2024-09-04 10:03 | Outpatient (BNVA) | payer MEDICARE, MEDICAID, SELFPAY | PROVIDERS: PCP Internal Medicine; Visit Provider Orthopaedic Surgery | DX: M17.12 Unilateral primary osteoarthritis, left knee (principal); M25.562 Pain in left knee | CPT/HCPCS: 20610; 99212; J1010; J2003 ==

== ENCOUNTER 2024-10-27 06:00 | Outpatient (REF) | payer MEDICARE, MEDICAID, SELFPAY ==
[2024-10-27 07:59] LABS: Alanine Aminotransferase 27 U/L (0-31); Albumin Level 4.5 g/dL (3.5-5.0); Alkaline Phosphatase 101 U/L (39-117); Anion Gap 13 (12-20); Aspartate Amino Transferase 20 U/L (5-31); Bilirubin Total 0.4 mg/dL (0.0-1.0); Blood Urea Nitrogen 15 mg/dL (9-16); Calcium 9.7 mg/dL (8.4-10.2); Carbon Dioxide 27 mmol/L (22-29); Chloride 103 mmol/L (96-108); Cholesterol 154 mg/dL (<200); Estimated Glomerular Filt Rate > 60; Glucose Random 110 mg/dL (60-115); HDL Cholesterol 51 mg/dL (>40); LDL Cholesterol Calculated 74 mg/dL (<100); Potassium 3.7 mmol/L (3.3-5.1); Sodium 139 mmol/L (135-145); Total Protein 7.7 g/dL (6.5-8.0); Triglycerides 145 mg/dL (<150)
== END 2024-10-27 06:01 | disposition home or self-care (01) ==
LOC: HO.LAB 06:00
PROVIDERS: PCP Internal Medicine; Visit Provider Internal Medicine
DX: Z00.01 Encounter for general adult medical examination with abnormal findings (principal); E03.8 Other specified hypothyroidism; E78.00 Pure hypercholesterolemia, unspecified; I10 Essential (primary) hypertension
CPT/HCPCS: 36415; 80053; 80061

== ENCOUNTER 2024-12-10 08:40 | Outpatient (AMB) | payer MEDICARE, MEDICAID, SELFPAY ==
--- NOTE | 2024-12-10 08:47 | A.OFFVIS_ITS ---
Vital Signs 12/10/24 08:48 Height 5 ft 2 in Weight 167 lb BMI 30.5 Intake Visit Reasons: Left knee pain Intake Note: Makeda is a 49 year old female who presents with complaints of progressively worsening left knee pain. She describes her pain as sharp in nature. She has tried physical therapy exercises which aggravated her pain. She has also tried Tylenol and anti-inflammatory medicines which gave him minimal relief. She has had cortisone injections in the past which gave her only mild relief. She has had viscosupplementation injections which gave her good relief. She wishes to hold off on total knee replacement surgery for long as possible. Allergies Sulfa (Sulfonamide Antibiotics) [SULFA (SULFONAMIDE ANTIBIOTICS)] Allergy (Severe, Verified 12/10/24 08:48) HIVES potassium [Potassimin] Allergy (Intermediate, Verified 12/10/24 08:48) Unknown amoxicillin Allergy (Unknown, Verified 12/10/24 08:48) Unknown From AUGMENTIN Allergy (Severe, Uncoded 12/10/24 08:48) HIVES Medication List - Last Reconciled 12/10/24 by Yony Kilpatrick MD baclofen 10 mg PO TID citalopram 20 mg PO DAILY clonidine HCl 0.1 mg PO BID gabapentin 300 mg PO BEDTIME haloperidol 0.5 mg PO TID levothyroxine 50 mcg PO DAILY loratadine (Allergy Relief (loratadine)) 10 mg PO DAILY metoprolol succinate ER 50 mg PO DAILY naproxen 500 mg PO BID omeprazole 20 mg PO DAILY onabotulinumtoxinA (Botox) 200 units subcut .every 3 months pramipexole 1 mg PO BEDTIME pravastatin 40 mg PO DAILY topiramate 25 mg PO BID 30 days valsartan 160 mg PO BID [facility] Medical History Chronic migraine without aura, intractable, without status migrainosus Chronic migraine w/o aura w/o status migrainosus, not intractable Tourette syndrome Mentally challenged [place] (hard of hearing) Head ache Surgical History No pertinent past surgical history Social History Household Members Other:: MOTHER Alcohol intake: never Patient Tobacco Use Status: Never used Tobacco Current occupational status: unemployed Current occupation: [employer] Physical Exam Vital Signs: BMI result Body Mass Index 30.5 Const Other: Well-nourished well-developed very friendly female awake alert and oriented x3 i n no acute distress Extrem Other: Bilateral lower extremity examination shows good capillary refill, no skin lesions noted, normal sensation light touch Left knee examination shows a minimal effusion, palpable crepitus with range of motion, pain with range of motion, no instability Office Procedures AMB Joint Injection/Aspiration Joint Injection/Aspiration Primary Site: left knee Prep: site was prepped using aseptic technique Injected: 60 mg of (Durolane viscosupplementation) and 1% plain lidocaine Procedure: The patient tolerated the procedure well Coding - Large joint Procedure code (CPT) selection complete Results Reviewed Results Reviewed: X-rays of the patient's left knee taken previously show joint space narrowing, subchondral sclerosis, no acute bony abnormalities Assessment & Plan Assessment & Plan (1) Osteoarthritis of left knee: Code(s): M17.12 - Unilateral primary osteoarthritis, left knee Category: Medical (2) Left knee pain: Code(s): M25.562 - Pain in left knee Plan Makeda presents with left knee pain due to osteoarthritis. The risks and benefits of a Durolane viscosupplementation injection were discussed at length with the patient. The patient wished to proceed. She tolerated the injection well. She will continue with her home exercise program. She will contact me prior to her follow-up appointment in 3 months should any questions or concerns arise. Feel free to call me at any time should questions regarding her orthopedic management arise. I spent 20 minutes in reviewing the patient's records and imaging studies, seeing the patient and documenting in the medical record. Orders: Orders AMB Joint Injection/Aspiration Today M17.12 - Unilateral primary osteoarthri tis, left knee Coding Level of Care Code Est Pt Level 3 (52820) Complex EM visit Add On G2211 Diagnoses Osteoarthritis of left knee M17.12 Left knee pain M25.562 CPT Codes Coding - 08511 Large joint: 24285 - Large joint ([id number])
[2024-12-10 08:48] VITALS: BMI 30.5
== END 2024-12-10 09:07 | disposition home or self-care (01) ==
PROVIDERS: PCP Internal Medicine; Visit Provider Orthopaedic Surgery
DX: M17.12 Unilateral primary osteoarthritis, left knee (principal)
CPT/HCPCS: 20610; 99213

== ENCOUNTER → 2024-12-10 08:40 | Outpatient (BNVA) | payer MEDICARE, MEDICAID, SELFPAY | PROVIDERS: PCP Internal Medicine; Visit Provider Orthopaedic Surgery | DX: M17.12 Unilateral primary osteoarthritis, left knee (principal) | CPT/HCPCS: 20610; 99212; J2003; J7318 ==

== ENCOUNTER 2025-01-06 13:28 | Outpatient (AMB) | payer OTHER, SELFPAY ==
--- NOTE | 2025-01-06 13:41 | MHC.OFFVIS ---
Vital Signs 01/06/25 13:42 Height 5 ft 2 in Weight 177 lb BMI 32.4 Pulse 70 Pulse Source Pulse Oximeter Pulse Oximetry (%) 98 Oxygen Delivery Method Room Air Intake Visit Reasons: Botox Intake Note: patient presents for follow up botox injection Allergies Sulfa (Sulfonamide Antibiotics) [SULFA (SULFONAMIDE ANTIBIOTICS)] Allergy (Severe, Verified 01/06/25 13:43) HIVES potassium [Potassimin] Allergy (Intermediate, Verified 01/06/25 13:43) Unknown amoxicillin Allergy (Unknown, Verified 01/06/25 13:43) Unknown From AUGMENTIN Allergy (Severe, Uncoded 01/06/25 13:43) HIVES Medication List - Last Reconciled 01/06/25 by Shaniqua Mata MD baclofen 10 mg PO TID citalopram 20 mg PO DAILY clonidine HCl 0.1 mg PO BID gabapentin 300 mg PO BEDTIME haloperidol 0.5 mg PO TID levothyroxine 50 mcg PO DAILY loratadine (Allergy Relief (loratadine)) 10 mg PO DAILY metoprolol succinate ER 50 mg PO DAILY naproxen 500 mg PO BID omeprazole 20 mg PO DAILY onabotulinumtoxinA (Botox) 200 units subcut .every 3 months pramipexole 1 mg PO BEDTIME pravastatin 40 mg PO DAILY topiramate 25 mg PO BID 30 days valsartan 160 mg PO BID HPI Comments Details: ? 49y/o female with tourettes and chronic migraines comes for treatment with botox. She is being evaluated for ovarian mass. Her TICS have increased . she did not tolerate increase in clonidine in the past How many migraine days prior to botox- 25-30 How long do the migraines last- 1-2days Intensity of migraine-severe ER visits related to migraine2 Effectiveness of botox from last two treatment(s) How many migraine days since receiving treatment:5-10days Change? in intensity of migraine?decreased Change in frequency of migraine?decreased Change in use of acute medication for migraine?decreased Change in quality of life?better ER visits related to migraine?none Have at least three months elapsed since last treatment (Last botox date - frequency of injections) 05/21 ??? frequent reported adverse reactions following injection of botox for chronic migraine include neck pain (9%), headache(5%), eyelid ptosis(4%), migraine(4%), muscular weakness(4%), musculuskeletal stiffness(4%), bronchitis(3%), injection site pain (3%, musculoskeletal pain(3%), myalgia(3%), facial paresis(2%), HTN(2%) and muscle spasms(2%) were discussed in detail. ??? Botulinum toxin typeA 200units Lot no [id number] expiration January 2027 was diluted with 4 cc of normal saline . ??? Muscles injected- ??? Frontalis 4 sites ??? Procerus 1 site ??? Transportation Operations Manager- 2 sites ??? Temporalis- 8 sites ??? Occipitalis- 6 sites ??? Cervical paraspinals- 4 sites ??? 5 units each ??? Trapezius- 6 sites- 10units each ??? Total use- 185units ??? Discarded-15units ??? 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 her topiramate dose was increased 100mg bid, occipital nerve block was suggested [facility] Medical History Chronic migraine without aura, intractable, without status migrainosus Chronic migraine w/o aura w/o status migrainosus, not intractable Tourette syndrome Mentally challenged [place] (hard of hearing) Head ache Surgical History No pertinent past surgical history Social History Household Members Other:: MOTHER Alcohol intake: never Patient Tobacco Use Status: Never used Tobacco Current occupational status: unemployed Current occupation: [employer] Physical Exam Vital Signs: Last Vital Signs Pulse 70 01/06/25 13:42 Pulse Ox 98 01/06/25 13:42 Oxygen Delivery Method Room Air 01/06/25 13:42 BMI result Body Mass Index 32.4 Const Other: Mild motor TICS Speech - slurred General: cooperative Orientation/consciousness: patient oriented x3 Neuro Other: neck - decreased range of motion and tightness General: patient oriented x3 Office Procedures Botulinum toxin Injection 16884 - Migraine Procedure code (CPT) selection complete Office Meds onabotulinumtoxinA 200 unit solution for injection Performing Provider: Shaniqua Mata MD Performing Location: [facility] Administered by: Shaniqua Mata MD on 01/14/25 09:13 Dose Route Admin Location Dispensed Lot Number Expiration Date ND Packer Inspector 185 unit subcut 200 units [id number] ALLERGAN/BOTOX Comments: see hpi Assessment & Plan Assessment & Plan (1) Chronic migraine without aura, intractable, without status migrainosus: Code(s): G43.719 - Chronic migraine without aura, intractable, without status migrainosus Category: Medical (2) Migraine with aura, intractable, without status migrainosus: Code(s): G43.119 - Migraine with aura, intractable, without status migrainosus Category: Medical (3) Tourette syndrome: Code(s): F95.2 - Tourette's disorder Category: Medical (4) 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 Ohara at [facility] for NBIA Nurtec 75mg qod - her headaches have stabilized with nurtec and botox Orders: Orders AMB Botulinum toxin Injection 01/06/25 G43.719 - Chronic migraine without aura, intractable, without status migrainosus Medications: New onabotulinumtoxinA 200 units subcut ONCE 1 ea 0RF migraine G43.719 - Chronic migraine without aura, intractable, without status migrainosus Coding Level of Care Code Est Pt Level 1 (58517) Diagnoses Chronic migraine without aura, intractable, without status migrainosus G43.719 Migraine with aura, intractable, without status migrainosus G43.119 Tourette syndrome F95.2 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
[2025-01-06 13:42] VITALS: PULSE 70; O2SAT 98; BMI 32.4
--- OUTSIDE RECORDS SUMMARY | 2025-01-06 16:18 | XMS_ITS | Clinical Summary ---
Author Organization [facility] ity Address [id number] [place] [id number] Care Team Providers Care Equipment Maintenance Tech Name Role Phone Unavailable Primary Care Provider Unavailabl e Social History Tobacco Use Types Packs/Day Years Used Date Smoking Tobacco: Never Assessed Comments Unknown Sex and Gender Information Value Date Recorded Sex Assigned at Not on file Legal Sex Female 2:20 PM EST Gender Identity Not on file Sexual Orientation Not on file Plan of Treatment Health Maintenance Due Date Last Done Comments Breast Cancer Screening 1976 DTaP,Tdap,and Td Vaccines (1 - Tdap) 1995 Hepatitis B Vaccines (1 of 3 - 19+ 3-dose series) 1995 Cervical Cancer Screening: P ap Smear 1997 Colorectal Cancer Screening: Colonoscopy 09/27/2022 Depression Screening 09/27/2022 HIV Screening 09/27/2022 Hepatitis C Screening 09/27/2022 Social Influencers of Health Screening 09/27/2022 COVID-19 Vaccine (2023-2 5 season) 2024 Influenza Vaccine (#1) 2024 HIB Vaccines Aged Out No longer eligi ble based on patient's age to complete this topic HPV Vaccines Aged Out No longer eligi ble based on patient's age to complete this topic Hepatitis A Vaccines Aged Out No long er eligible based on patient's age to complete this topic IPV Vaccines Aged Out No longer eligi ble based on patient's age to complete this topic MMR Vaccines Aged Out No longer eligi ble based on patient's age to complete this topic Meningococcal ACWY Vaccine Aged Out N o longer eligible based on patient's age to complete this topic Meningococcal B Vacine Aged Out No lo nger eligible based on patient's age to complete this topic Pneumococcal Vaccine: Pediat rics (0 to 5 Years) and At-Risk Patients (6 to 64 Years) Aged Out No longer eligible b ased on patient's age to complete this topic RSV Immunization Patients Un edith 20 months Aged Out No longer eligible b ased on patient's age to complete this topic Varicella Vaccines Aged Out No longer eligible based on patient's age to complete this topic
--- OUTSIDE RECORDS SUMMARY | 2025-01-06 16:18 | XMS_ITS | Clinical Summary ---
Author Organization [facility] Address [address] [place] [address] Care Team Providers Care Special Agent Group Insurance Name Role Phone Amy Mcarthur Primary Care Provider [phone] Allergies Active Allergy Reactions Criticality Noted Date Comments Amoxicillin-Pot Clavulanate Hives 02/16/20 22 Potassium Chloride Unknown 06/06/2023 Sulfa (Sulfonamide Antibiotics) Unknown 01/28 Medications cloNIDine (CATAPRES) 0.1 mg tablet Take 0.1 mg by mouth 3 times a day. 2 Active naproxen (NAPROSYN) 500 mg tablet Take 500 mg by mouth 2 times a day with meals. 2 Active levothyroxine (SYNTHROID, LEVOTHROID) 50 mcg tablet Take 50 mcg by mouth daily. 2 Active baclofen (LIORESAL) 10 mg tablet Per pt take 10 mg three times a day 2 Active haloperidoL (HALDOL) 0.5 mg tablet Take 0.5 mg by mouth 2 times a day. Per pt take 1 tab twice a day 2 Active gabapentin (NEURONTIN) 300 mg capsule Per pt take 1 capsule in the am and 2 capsule at bedtime 2 Active onabotulinumtox in A (Botox) 100 unit recon soln injection once. Every 3 months for migraines Active valsartan (DIOVAN) 40 mg tablet Take 40 mg by mouth once a day. Active cholecalciferol (VITAMIN D3) 2,000 unit capsule Take 3 capsules (6,000 Units total) by mouth once a day. Active Active Problems Problem Noted Date Diagnosed Date Bilateral deafness 08/23/2023 Congenital aganglionic megacolon 08/23/2023 Intellectual disability 08/23/2023 Hypothyroidism 08/23/2023 Migraine 08/23/2023 Family History Medical History Relation Name Comments No Known Problems Father No Known Problems Mother No Known Problems Sister Relation Name Status Comments Father Alive Maternal Grandfather Maternal Grandmother Mother Alive Paternal Grandfather Paternal Grandmother Sister Alive Social History Tobacco Use Types Packs/Day Years Used Date Smoking Tobacco: Never Smokeless Tobacco: Never Alcohol Use Standard Drinks/Week Comments Never 0 (1 standard drink = 0.6 oz pur e alcohol) Comments Unknown Sex and Gender Information Value Date Recorded Sex Assigned at Female 10/25/2022 8:48 AM EST Legal Sex Female 11:29 AM EST Gender Identity Female 10/25/2022 8:48 AM EST Sexual Orientation Straight 10/25/2022 8: 48 AM EST Last Filed Vital Signs Vital Sign Reading Time Taken Comments Blood Pressure 117/77 03/11/2024 10:02 AM EDT Pulse 81 03/11/2024 10:02 AM EDT Temperature 36.4 ??C (97.5 ??F) 01/02/2024 12:[address] Respiratory Rate 20 01/02/2024 12:40 PM EST Oxygen Saturation 98% 03/11/2024 10:02 AM EDT Inhaled Oxygen Concentration - - Weight 75.4 kg (166 lb 3.2 oz) 03/11/2024 10:02 AM EDT Height 156 cm (5' 1.42 ) 03/11/2024 10:02 AM EDT Body Mass Index 30.98 03/11/2024 10:02 AM EDT Plan of Treatment Health Maintenance Due Date Last Done Comments Cervical Cancer Screening 1976 Cologuard 1976 Colon Cancer Screening 1976 Colonoscopy 1976 FOBT / Fit Test 1976 HIV Screening 1976 HPV and Pap Smear 1976 Hepatitis C Screening 1976 Pap Smear 1976 Sigmoidoscopy 1976 Hepatitis B Vaccines (1 of 3 - 19+ 3-dose series) 1995 Mammogram 2016 COVID-19 Vaccine ( season) 2024 08/10/2022, 03/29/2021, 02/26/2021, Additional history exists Influenza Vaccine (#1) 2024 07/24/2020, 2016 Alcohol/Substance Use Screening 10/29/2024 Depression Screening and Follow-Up 10/29/2024 Social Drivers of Health Annual Screening 10/29/2024 DTaP,Tdap,and Td Vaccines (2 - Td or Tdap) 03/16/2033 03/16/2023 RSV Vaccine (60+ years old and patients) (1 - 1-dose 75+ series) 2051 Pneumococcal Vaccine: Pediatric (0-5 Years) and At-Risk Patients (6-50 Years) Aged Out No longer eligible based on patient's age to complete this topic Insurance [facility] [place] [id number] Advance Directives Healthcare Agents on File Name Relationship Healthcare Agent Relationshi p Communication Saraderic [facility] Health Care Agent Care Teams Special Agent Group Insurance Relationship Specialty Start Date End Date Amy Mcarthur [address] [facility] [address] [place] [address] PCP - General Internal Medicine 01/04/22
--- OUTSIDE RECORDS SUMMARY | 2025-01-06 16:18 | XMS_ITS | Referral Summary ---
Author Organization [facility] Address [address] [place] [address] Care Team Providers Care Shredder/Granulator Operator Name Role Phone Amy Mcarthur Primary Care Provider [phone] Allergies Active Allergy Reactions Criticality Noted Date [...] Intellectual disability 08/23/2023 Hypothyroidism 08/23/2023 Migraine 08/23/2023 Social History Tobacco Use Types Packs/Day Years [...] 03/11/2024 10:02 AM EDT Plan of Treatment Not on file Insurance [facility] Advance Directives Healthcare Agents on File Name Relationship Healthcare Agent Relationshi p Communication Sara Esteban [facility] Health Care Agent Care Teams Shredder/Granulator Operator Relationship Specialty Start Date End Date Lyubov Amy [address] [facility] [address] [place] [address] PCP - General Internal Medicine 01/04/22
== END 2025-01-06 14:05 | disposition home or self-care (01) ==
LOC: HO.HSMS 13:29
PROVIDERS: PCP Internal Medicine; Visit Provider Psychiatry & Neurology Neurology
DX: G43.719 Chronic migraine without aura, intractable, without status migrainosus (principal)
CPT/HCPCS: 64615

== ENCOUNTER → 2025-01-06 13:28 | Outpatient (BNVA) | payer MEDICARE, SELFPAY | PROVIDERS: PCP Internal Medicine; Visit Provider Psychiatry & Neurology Neurology | DX: G43.719 Chronic migraine without aura, intractable, without status migrainosus (principal); F95.2 Tourette's disorder; G23.0 Hallervorden-Spatz disease; G43.119 Migraine with aura, intractable, without status migrainosus | CPT/HCPCS: 64615; 99211; J0585 ==

== ENCOUNTER 2025-01-09 14:23 | Outpatient (REF) | payer MEDICARE, SELFPAY ==
--- OUTSIDE RECORDS SUMMARY | 2025-01-09 16:02 | XMS_ITS | Clinical Summary ---
Author Organization [facility] Address [address] [place] [address] Care Team Providers Care Police Matron Name Role Phone Amy Mcarthur Primary Care Provider [phone] Allergies Active Allergy Reactions Criticality Noted Date [...] patient's age to complete this topic Insurance [facility] [id number] Advance Directives Healthcare Agents on File Name Relationship Healthcare Agent Relationshi p Communication Saraderic [facility]star [facility] Health Care Agent Care Teams Police Matron Relationship Specialty Start Date End Date Amy Mcarthur [address] [facility] [address] [place] [address] PCP - General Internal Medicine 01/04/22
--- OUTSIDE RECORDS SUMMARY | 2025-01-09 16:02 | XMS_ITS | Referral Summary ---
Author Organization [facility] Address [address] [place] [address] Care Team Providers Care Varnish Dipper Name Role Phone Amy Mcarthur Primary Care Provider [phone] Allergies Active Allergy Reactions Criticality Noted Date [...] Plan of Treatment Not on file Insurance [facility] Advance Directives Healthcare Agents on File Name Relationship Healthcare Agent Relationshi p Communication Sara Esteban [facility] Health Care Agent Care Teams Varnish Dipper Relationship Specialty Start Date End Date Lyubov Amy [address] [facility] [address] [place] [address] PCP - General Internal Medicine 01/04/22
--- OUTSIDE RECORDS SUMMARY | 2025-01-09 16:02 | XMS_ITS | Clinical Summary ---
Author Organization [facility] ity Address [address] [place] [id number] Care Team Providers Care Snowboarder Name Role Phone Unavailable Primary Care Provider [...]
== END 2025-01-09 14:24 | disposition home or self-care (01) ==
LOC: HO.MAMMO 14:23
PROVIDERS: PCP Internal Medicine; Visit Provider Internal Medicine
DX: Z12.31 Encounter for screening mammogram for malignant neoplasm of breast (principal)
CPT/HCPCS: 77063; 77067

== ENCOUNTER → 2025-01-09 14:30 | Outpatient (BNV) | payer MEDICARE, SELFPAY | PROVIDERS: PCP Internal Medicine; Visit Provider Internal Medicine | DX: Z12.31 Encounter for screening mammogram for malignant neoplasm of breast (principal) | CPT/HCPCS: 77063; 77067 ==

== ENCOUNTER 2025-03-12 14:45 | Outpatient (AMB) | payer MEDICARE, MEDICAID, SELFPAY ==
--- NOTE | 2025-03-12 14:51 | MHC.OFFVIS ---
Vital Signs 03/12/25 14:54 Height 5 ft 2 in Weight 177 lb BMI 32.4 Intake Visit Reasons: Left knee pain Intake Note: Makeda is a 49 year old female who presents with complaints of left knee pain. She describes her pain as sharp in nature. She has had both cortisone injections as well as viscosupplementation injections given into her left knee in the past. She got fairly good relief from those injections. She wishes to hold off on surgery for as long as possible. She has tried Tylenol and anti-inflammatory medicines which gave her only mild relief. Allergies Sulfa (Sulfonamide Antibiotics) [SULFA (SULFONAMIDE ANTIBIOTICS)] Allergy (Severe, Verified 03/12/25 14:54) HIVES potassium [Potassimin] Allergy (Intermediate, Verified 03/12/25 14:54) Unknown amoxicillin Allergy (Unknown, Verified 03/12/25 14:54) Unknown From AUGMENTIN Allergy (Severe, Uncoded 03/12/25 14:54) HIVES Medication List - Last Reconciled 03/12/25 by Yony Kilpatrick MD baclofen 10 mg PO TID citalopram 20 mg PO DAILY clonidine HCl 0.1 mg PO BID gabapentin 300 mg PO BEDTIME haloperidol 0.5 mg PO TID levothyroxine 50 mcg PO DAILY loratadine (Allergy Relief (loratadine)) 10 mg PO DAILY metoprolol succinate ER 50 mg PO DAILY naproxen 500 mg PO BID omeprazole 20 mg PO DAILY onabotulinumtoxinA (Botox) 200 units subcut .every 3 months pramipexole 1 mg PO BEDTIME pravastatin 40 mg PO DAILY topiramate 25 mg PO BID 30 days valsartan 160 mg PO BID PFSH Medical History Chronic migraine without aura, intractable, without status migrainosus Chronic migraine w/o aura w/o status migrainosus, not intractable Tourette syndrome Mentally challenged [place] (hard of hearing) Head ache Surgical History No pertinent past surgical history Social History Household Members Other:: MOTHER Alcohol intake: never Patient Tobacco Use Status: Never used Tobacco Current occupational status: unemployed Current occupation: [employer] Physical Exam Vital Signs: BMI result Body Mass Index 32.4 Const Other: Well-nourished well-developed very friendly female awake alert and oriented x3 in no acute distress Extrem Other: Left knee examination shows a minimal effusion, palpable crepitus with range of motion, pain with range of motion, no instability Office Procedures AMB Joint Injection/Aspiration Joint Injection/Aspiration Primary Site: left knee Prep: site was prepped using aseptic technique Injected: 40 mg of, DepoMedrol and 1% plain lidocaine Procedure: The patient tolerated the procedure well Coding - Large joint Procedure code (CPT) selection complete Results Reviewed Results Reviewed: X-rays of the patient's left knee taken previously show joint space narrowing, subchondral sclerosis, no acute bony abnormalities Assessment & Plan Assessment & Plan (1) Osteoarthritis of left knee: Code(s): M17.12 - Unilateral primary osteoarthritis, left knee Category: Medical (2) Left knee pain: Code(s): M25.562 - Pain in left knee Plan Ms. Orellana presents with left knee pain due to osteoarthritis. The risks and benefits of a left knee cortisone injection were discussed at length with the patient. The patient wished to proceed. She tolerated the injection well. If she does not get lasting relief from the cortisone injection I will see whether or not her insurance company will cover a another viscosupplementation injection such as Durolane. I will see her back at that time. Feel free to call me at any time should questions regarding her orthopedic management arise. I spent 21 minutes in reviewing the patient's records and imaging studies, seeing the patient and documenting in the medical record. Orders: Orders AMB Joint Injection/Aspiration Today M17.12 - Unilateral primary osteoarthritis, left knee Coding Level of Care Code Est Pt Level 3 (92700) Complex EM visit Add On G2211 Diagnoses Osteoarthritis of left knee M17.12 Left knee pain M25.562 CPT Codes Coding - Large joint: 40734 - Large joint ([id number])
[2025-03-12 14:54] VITALS: BMI 32.4
--- OUTSIDE RECORDS SUMMARY | 2025-03-12 15:32 | XMS_ITS | Referral Summary ---
Author Organization [facility] Address [address] [place] [address] Care Team Providers Care Cnc Technician Name Role Phone Amy Mcarthur Primary Care Provider [phone] Allergies Active Allergy Reactions Criticality Noted Date [...] Plan of Treatment Not on file Insurance [facility] Advance Directives Healthcare Agents on File Name Relationship Healthcare Agent Relationshi p Communication Sara Esteban [facility] Health Care Agent Care Teams Cnc Technician Relationship Specialty Start Date End Date Lyubov Amy [address] [facility] [address] [place] [address] PCP - General Internal Medicine 01/04/22
--- OUTSIDE RECORDS SUMMARY | 2025-03-12 15:32 | XMS_ITS | Clinical Summary ---
Author Organization [facility] ity Address [address] [place] [id number] Care Team Providers Care Counter Weigher Name Role Phone Unavailable Primary Care Provider [...] Vaccine (2023-2 5 season) 2024 Influenza Vaccine (Season Ended) 2025 HIB Vaccines Aged Out No longer eligi [...] age to complete this topic Meningococcal B Vaccine Aged Out No l onger eligible based on patient's age to complete [...]
--- OUTSIDE RECORDS SUMMARY | 2025-03-12 15:32 | XMS_ITS | Clinical Summary ---
Author Organization [facility] Address [address] [place] [address] Care Team Providers Care Security Assurance Specialist Name Role Phone Amy Mcarthur Primary Care Provider [phone] Allergies Active Allergy Reactions Criticality Noted Date [...] 2024 08/10/2022, 03/29/2021, 02/26/2021, Additional history exists Alcohol/Substance Use Screening 10/29/2024 Depression Screening and Follow-Up 10/29/2024 Social Drivers of Health Annual Screening 10/29/2024 Influenza Vaccine (Season Ended) 2025 07/24/2020, 06/30/2017 DTaP,Tdap,and Td Vaccines (2 - Td or Tdap) 03/16/2033 03/16/2023 RSV Vaccine (60+ years old and patients) (1 - 1-dose 75+ series) 2051 Pneumococcal Vaccine: Pediatric (0-5 Years) and At-Risk Patients (6-50 Years) Aged Out No longer eligible based on patient's age to complete this topic Insurance [facility] [place] [id number] Advance Directives Healthcare Agents on File Name Relationship Healthcare Agent Relationshi p Communication Saraderic Fournierstar [facility] Health Care Agent Care Teams Security Assurance Specialist Relationship Specialty Start Date End Date Amy Mcarthur [address] [facility] [address] [place] [address] PCP - General Internal Medicine 01/04/22
== END 2025-03-12 15:05 | disposition home or self-care (01) ==
LOC: HO.HOS 14:45
PROVIDERS: PCP Internal Medicine; Visit Provider Orthopaedic Surgery
DX: M17.12 Unilateral primary osteoarthritis, left knee (principal); M25.562 Pain in left knee
CPT/HCPCS: 20610; 99213

== ENCOUNTER → 2025-03-12 14:45 | Outpatient (BNVA) | payer MEDICARE, MEDICAID, SELFPAY | PROVIDERS: PCP Internal Medicine; Visit Provider Orthopaedic Surgery | DX: M17.12 Unilateral primary osteoarthritis, left knee (principal) | CPT/HCPCS: 20610; 99212; J1010; J2003 ==

== ENCOUNTER 2025-04-14 12:57 | Outpatient (AMB) | payer MEDICARE, MEDICAID, SELFPAY ==
[2025-04-14 13:04] VITALS: PULSE 93; O2SAT 96; BMI 32.4
--- NOTE | 2025-04-14 13:04 | A.OFFVIS_ITS ---
Vital Signs 04/14/25 13:04 Height 5 ft 2 in Weight 177 lb BMI 32.4 Pulse 93 Pulse Source Pulse Oximeter Pulse Oximetry (%) 96 Oxygen Delivery Method Room Air Intake Visit Reasons: Botox Intake Note: Patient presents for botox injection. practice supplied Allergies Sulfa (Sulfonamide Antibiotics) [SULFA (SULFONAMIDE ANTIBIOTICS)] Allergy (Severe, Verified 03/12/25 14:54) HIVES potassium [Potassimin] Allergy (Intermediate, Verified 03/12/25 14:54) Unknown amoxicillin Allergy (Unknown, Verified 03/12/25 14:54) Unknown From AUGMENTIN Allergy (Severe, Uncoded 03/12/25 14:54) HIVES Medication List - Last Reconciled 04/14/25 by Shaniqua Mata MD baclofen 10 mg PO TID citalopram 20 mg PO DAILY clonidine HCl 0.1 mg PO BID gabapentin 300 mg PO BEDTIME haloperidol 0.5 mg PO TID levothyroxine 50 mcg PO DAILY loratadine (Allergy Relief (loratadine)) 10 mg PO DAILY metoprolol succinate ER 50 mg PO DAILY naproxen 500 mg PO BID omeprazole 20 mg PO DAILY onabotulinumtoxinA (Botox) 200 units subcut .every 3 months pramipexole 1 mg PO BEDTIME pravastatin 40 mg PO DAILY topiramate 25 mg PO BID 30 days valsartan 160 mg PO BID HPI Comments Details: ? 49y/o female with tourettes and chronic migraines comes for treatment with botox. She is being evaluated for ovarian mass. Her TICS have increased . she did not tolerate increase in clonidine in the past How many migraine days prior to botox- 25-30 How long do the migraines last- 1-2days Intensity of migraine-severe ER visits related to migraine2 Effectiveness of botox from last two treatment(s) How many migraine days since receiving treatment:5-10days Change? in intensity of migraine?decreased Change in frequency of migraine?decreased Change in use of acute medication for migraine?decreased Change in quality of life?better ER visits related to migraine?none Have at least three months elapsed since last treatment (Last botox date - frequency of injections) 05/21 ??? frequent reported adverse reactions following injection of botox for chronic migraine include neck pain (9%), headache(5%), eyelid ptosis(4%), migraine(4%), muscular weakness(4%), musculuskeletal stiffness(4%), bronchitis(3%), injection site pain (3%, musculoskeletal pain(3%), myalgia(3%), facial paresis(2%), HTN(2%) and muscle spasms(2%) were discussed in detail. ??? Botulinum toxin typeA 200units Lot no [id number] expiration Jul 2027 was diluted with 4 cc of normal saline . ??? Muscles injected- ??? Frontalis 4 sites ??? Procerus 1 site ??? White Lead Filterer- 2 sites ??? Temporalis- 8 sites ??? Occipitalis- 6 sites ??? Cervical paraspinals- 4 sites ??? 5 units each ??? Trapezius- 6 sites- 10units each ??? Total use- 185units ??? Discarded-15units ??? 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 her topiramate dose was increased 100mg bid, occipital nerve block was suggested [facility] Medical History Chronic migraine without aura, intractable, without status migrainosus Chronic migraine w/o aura w/o status migrainosus, not intractable Tourette syndrome Mentally challenged [place] (hard of hearing) Head ache Surgical History No pertinent past surgical history Social History Household Members Other:: MOTHER Alcohol intake: never Patient Tobacco Use Status: Never used Tobacco Current occupational status: unemployed Current occupation: [employer] Physical Exam Vital Signs: Last Vital Signs Pulse 93 04/14/25 13:04 Pulse Ox 96 04/14/25 13:04 Oxygen Delivery Method Room Air 04/14/25 13:04 BMI result Body Mass Index 32.4 Const Other: Mild motor TICS Speech - slurred General: cooperative Orientation/consciousness: patient oriented x3 Neuro Other: neck - decreased range of motion and tightness General: patient oriented x3 Office Procedures Botulinum toxin Injection 98969 - Migraine Procedure code (CPT) selection complete Office Meds onabotulinumtoxinA 200 unit solution for injection Performing Provider: Shaniqua Mata MD Performing Location[place] [facility] Administered by: Shaniqua Mata MD on 04/14/25 13:36 Dose Route Admin Location Dispensed Lot Number Expiration Date NDC R&D Engineer 185 unit subcut 200 units [id number] ALLERGAN/BOTOX Comments: see hpi Assessment & Plan Assessment & Plan (1) Chronic migraine without aura, intractable, without status migrainosus: Code(s): G43.719 - Chronic migraine without aura, intractable, without status migrainosus Category: Medical (2) Migraine with aura, intractable, without status migrainosus: Code(s): G43.119 - Migraine with aura, intractable, without status migrainosus Category: Medical (3) Tourette syndrome: Code(s): F95.2 - Tourette's disorder Category: Medical (4) 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 Ohara at [facility] for NBIA Nurtec 75mg qod - her headaches have stabilized with nurtec and botox Orders: Orders AMB Botulinum toxin Injection Today G43.719 - Chronic migraine without aura, intractable, without status migrainosus Medications: New onabotulinumtoxinA 200 units subcut ONCE 1 ea 0RF Migraine G43.719 - Chronic migraine without aura, intractable, without status migrainosus Coding Level of Care Code Est Pt Level 1 (28317) Diagnoses Chronic migraine without aura, intractable, without status migrainosus G43.719 Migraine with aura, intractable, without status migrainosus G43.119 Tourette syndrome F95.2 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
--- OUTSIDE RECORDS SUMMARY | 2025-04-14 14:41 | XMS_ITS | Clinical Summary ---
Author Organization [facility] ity Address [address] [place] [id number] Care Team Providers Care Coffee Grinder Name Role Phone Unavailable Primary Care Provider [...]
== END 2025-04-14 13:48 | disposition home or self-care (01) ==
LOC: HO.HSMS 12:57
PROVIDERS: PCP Internal Medicine; Visit Provider Psychiatry & Neurology Neurology
DX: G43.719 Chronic migraine without aura, intractable, without status migrainosus (principal)
CPT/HCPCS: 64615

== ENCOUNTER → 2025-04-14 12:57 | Outpatient (BNVA) | payer MEDICARE, MEDICAID, SELFPAY | PROVIDERS: PCP Internal Medicine; Visit Provider Psychiatry & Neurology Neurology | DX: G43.719 Chronic migraine without aura, intractable, without status migrainosus (principal); F95.2 Tourette's disorder; G23.0 Hallervorden-Spatz disease | CPT/HCPCS: 64615; 99211; J0585 ==

== ENCOUNTER 2025-06-11 14:39 | Outpatient (AMB) | payer MEDICARE, MEDICAID, SELFPAY ==
[2025-06-11 14:41] VITALS: BMI 32.4
--- NOTE | 2025-06-11 14:41 | MHC.OFFVIS ---
Vital Signs 06/11/25 14:41 Height 5 ft 2 in Weight 177 lb BMI 32.4 Intake Visit Reasons: Inj-Left knee Durolane inj. Intake Note: Makeda is a 49 year old female who presents with complaints of left knee pain. She describes her pain as sharp in nature. She has had cortisone injections in the past which gave her temporary relief. She has also had viscosupplementation injections which gave her very good relief. She has tried Tylenol and anti-inflammatory medicines as well as physical therapy exercises which aggravated her pain. She wishes to hold off on surgery if at all possible. Allergies Sulfa (Sulfonamide Antibiotics) (SULFA (SULFONAMIDE ANTIBIOTICS)) Allergy (Severe, Verified 06/11/25 14:48) HIVES potassium (Potassimin) Allergy (Intermediate, Verified 06/11/25 14:48) Unknown amoxicillin Allergy (Unknown, Verified 06/11/25 14:48) Unknown From AUGMENTIN Allergy (Severe, Uncoded 06/11/25 14:48) HIVES Medication List - Last Reconciled 06/11/25 by Yony Kilpatrick MD baclofen 10 mg PO TID citalopram 20 mg PO DAILY clonidine HCl 0.1 mg PO BID gabapentin 300 mg PO BEDTIME haloperidol 0.5 mg PO TID levothyroxine 50 mcg PO DAILY loratadine (Allergy Relief (loratadine)) 10 mg PO DAILY metoprolol succinate ER 50 mg PO DAILY naproxen 500 mg PO BID omeprazole 20 mg PO DAILY onabotulinumtoxinA (Botox) 200 units subcut .every 3 months pramipexole 1 mg PO BEDTIME pravastatin 40 mg PO DAILY topiramate 25 mg PO BID 30 days valsartan 160 mg PO BID PFS Medical History Chronic migraine without aura, intractable, without status migrainosus Chronic migraine w/o aura w/o status migrainosus, not intractable Tourette syndrome Mentally challenged [place] (hard of hearing) Head ache Surgical History No pertinent past surgical history Social History Household Members Other:: MOTHER Alcohol intake: never Patient Tobacco Use Status: Never used Tobacco Current occupational status: unemployed Current occupation: [employer] Physical Exam Vital Signs: BMI result Body Mass Index 32.4 Const Other: Well-nourished well-developed very friendly female awake alert and oriented x3 in no acute distress Extrem Other: Left knee examination shows a minimal effusion, palpable crepitus with range of motion, pain with range of motion, no instability Office Procedures AMB Joint Injection/Aspiration Joint Injection/Aspiration Primary Site: left knee Prep: site was prepped using aseptic technique Injected: 60 mg of (Durolane viscosupplementation) and 1% plain lidocaine Procedure: The patient tolerated the procedure well Coding - Large joint Procedure code (CPT) selection complete Assessment & Plan Assessment & Plan (1) Arthritis of left knee: Code(s): M17.12 - Unilateral primary osteoarthritis, left knee Category: Medical Plan Makeda presents with left knee pain due to osteoarthritis. The risks and benefits of a Durolane viscosupplementation injection were discussed at length with the patient. The patient wished to proceed. She tolerated the injection well. She will continue with her home exercise program. She will contact me prior to her follow-up appointment in 3 months should any questions or concerns arise. I spent 22 minutes in reviewing the patient's records and imaging studies, seeing the patient and documenting in the medical record. Orders: Orders AMB Joint Injection/Aspiration Today M17.12 - Unilateral primary osteoarthritis, left knee Coding Level of Care Code Est Pt Level 3 (33196) Complex EM visit Add On G2211 Diagnoses Arthritis of left knee M17.12 CPT Codes Coding - Large joint: 66453 - Large joint ([id number])
--- OUTSIDE RECORDS SUMMARY | 2025-06-11 15:19 | XMS_ITS | Clinical Summary ---
Author Organization [facility] Address [address] [place] [address] Care Team Providers Care Crude Unit Operator Name Role Phone Amy Mcarthur Primary Care Provider [phone] Allergies Active Allergy Reactions Criticality Noted Date [...] 81 03/11/2024 10:02 AM EDT Temperature 36.4 C (97.5 F) 01/02/2024 12:40 PM EST Respiratory Rate 20 01/02/2024 12:40 PM EST [...] 10/29/2024 Depression Screening and Follow-Up 10/29/2024 Social I-Pulse of Health Annual Screening 10/29/2024 Influenza Vaccine (#1) 2025 07/24/2020, 2016 DTaP,Tdap,and Td Vaccines (2 - Td or Tdap) 03/16/2033 03/16/2023 RSV Vaccine (60+ years old and patients) (1 - 1-dose 75+ series) 2051 Pneumococcal Vaccine: Pediatric (0-5 Years) and At-Risk Patients (6-50 Years) Aged Out No longer eligible based on patient's age to complete this topic Insurance [facility] Advance Directives Healthcare Agents on File Name Relationship Healthcare Agent Relationshi p Communication Sara Esteban [facility] Health Care Agent Care Teams Crude Unit Operator Relationship Specialty Start Date End Date Amy Mcarthur [address] [address] PCP - General Internal Medicine 01/04/22
--- OUTSIDE RECORDS SUMMARY | 2025-06-11 15:19 | XMS_ITS | Clinical Summary ---
Author Organization [facility] ity Address [address] [place] [phone] Care Team Providers Care Case Preparer And Liner Name Role Phone Unavailable Primary Care Provider [...] Cervical Cancer Screening: P ap Smear 1997 COVID-19 Vaccine (2023-2 5 season) 2024 Depression Screening 10/29/2024 Influenza Vaccine (#1) 2025 HIB Vaccines Aged Out No longer [...] 5 Years) and At-Risk Patients (6 to 49 Years) Aged Out No longer eligible b ased on patient's age to complete this topic RSV Immunization Patients Un edith 20 months Aged Out No longer eligible b ased on patient's age to complete this topic Varicella Vaccines Aged Out No longer eligible based on patient's age to complete this topic
--- OUTSIDE RECORDS SUMMARY | 2025-06-11 15:20 | XMS_ITS | Clinical Summary ---
Author Organization [facility] Address [address] [place] [id number] Phone Care Team Providers Care Pipe Machine Operator Name Role Phone Amy Jonas MD Primary Care Provider Social History Tobacco Use Types Packs/Day Years Used Date Smoking Tobacco: Never Assessed Education Answer Date Recorded Are you interested in more education? Not on odette e 02/24/2023 Are you concerned about learning? Not on file 02/24/2023 No 02/24/2023 No 02/24/2023 Digital Access Answer Date Recorded No 03/24/2023 No 03/24/2023 No 03/24/2023 Reliable internet access at home? Not on file 03/24/2023 Device with a working camera? Not on file Comments Unknown Sex and Gender Information Value Date Recorded Sex Assigned at Not on file Legal Sex Female 2:35 PM EDT Gender Identity Not on file Sexual Orientation Not on file Plan of Treatment Health Maintenance Due Date Last Done Comments Adult Td,Tdap Booster 1976 LIPID PANEL 1976 DEPRESSION SCREENING 1988 SMOKING Hx and SMOKELESS TOBACCO SCREENING 1989 HEPATITIS C SCREENING 1994 HIV ONE-TIME SCREENING (18-6 5 YEARS) 1994 PAP SMEAR 1997 MAMMOGRAM 2016 COLOGUARD 2021 COLONOSCOPY 2021 COLORECTAL CANCER SCREENING 2021 FIT TEST 2021 FOBT 2021 SIGMOIDOSCOPY 2021 VIRTUAL COLONOSCOPY 2021 COVID-19 VACCINE ( - 2023-2 5 season) 2024 03/29/2021, 02/26/2021, 02/05/2021 HEPATITIS A VACCINES Aged Out No long er eligible based on patient's age to complete this topic HIB VACCINES Aged Out No longer eligi ble based on patient's age to complete this topic MENINGOCOCCAL VACCINES (ACWY) Aged Out No longer eligible based on patient's age to complete this topic MENINGOCOCCAL VACCINES (B) Aged Out N o longer eligible based on patient's age to complete this topic PNEUMOCOCCAL VACCINES (0-49 years) Aged Out No longer eligible b ased on patient's age to complete this topic Medical Devices Not [place] [id number] MEDICARE PART A & B [facility] [place] [address] MEDICARE PART A & B [facility] [place] [address] MEDICARE PART A & [facility] PART A & [place] [id number] MEDICARE PART A [place] [id number] MEDICARE PART A & [place] [facility] [place] [id number] MEDICARE PART A & B [facility] Care Teams Pipe Machine Operator Relationship Specialty Start Date End Date Amy Jonas MD [address] [place] [address] [place] [address] PCP - General Internal Medicine 02/10/21 Additional Source Comments The information contained in this document represents components of the legal health record. It is not the complete legal health record.[facility]
== END 2025-06-11 14:55 | disposition home or self-care (01) ==
LOC: HO.HOS 14:39
PROVIDERS: PCP Internal Medicine; Visit Provider Orthopaedic Surgery
DX: M17.12 Unilateral primary osteoarthritis, left knee (principal)
CPT/HCPCS: 20610; 99213

== ENCOUNTER → 2025-06-11 14:39 | Outpatient (BNVA) | payer MEDICARE, MEDICAID, SELFPAY | PROVIDERS: PCP Internal Medicine; Visit Provider Orthopaedic Surgery | DX: M25.562 Pain in left knee (principal); M17.12 Unilateral primary osteoarthritis, left knee | CPT/HCPCS: 20610; 99212; J2003; J7318 ==

== ENCOUNTER 2025-07-14 12:46 | Outpatient (AMB) | payer MEDICARE, MEDICAID, SELFPAY ==
--- NOTE | 2025-07-14 12:51 | A.OFFVIS_ITS ---
Vital Signs 07/14/25 12:52 Height 5 ft 2 in Weight 176 lb BMI 32.2 BP 110/68 Blood Pressure Location Rt brachial Position Sitting Pulse 93 Pulse Source Pulse Oximeter Pulse Oximetry (%) 97 Oxygen Delivery Method Room Air Intake Visit Reasons: Botox Intake Note: Botox Quantity Surveyor Required: No Accompanied by: Mother Allergies Sulfa (Sulfonamide Antibiotics) (SULFA (SULFONAMIDE ANTIBIOTICS)) Allergy (Severe, Verified 07/14/25 12:51) HIVES potassium (Potassimin) Allergy (Intermediate, Verified 07/14/25 12:51) Unknown amoxicillin Allergy (Unknown, Verified 07/14/25 12:51) Unknown From AUGMENTIN Allergy (Severe, Uncoded 06/11/25 14:48) HIVES Medication List - Last Reconciled 07/14/25 by Shaniqua Mata MD baclofen 10 mg PO TID citalopram 20 mg PO DAILY clonidine HCl 0.1 mg PO BID gabapentin 300 mg PO BEDTIME haloperidol 0.5 mg PO TID levothyroxine 50 mcg PO DAILY loratadine (Allergy Relief (loratadine)) 10 mg PO DAILY metoprolol succinate ER 50 mg PO DAILY naproxen 500 mg PO BID omeprazole 20 mg PO DAILY onabotulinumtoxinA (Botox) 200 units subcut .every 3 months pravastatin 40 mg PO DAILY topiramate 25 mg PO BID 30 days valsartan 160 mg PO BID HPI Comments Details: ? 49y/o female with tourettes and chronic migraines comes for treatment with botox. She is being evaluated for ovarian mass. Her TICS have increased . she did not tolerate increase in clonidine in the past How many migraine days prior to botox- 25-30 How long do the migraines last- 1-2days Intensity of migraine-severe ER visits related to migraine2 Effectiveness of botox from last two treatment(s) How many migraine days since receiving treatment:5-10days Change? in intensity of migraine?decreased Change in frequency of migraine?decreased Change in use of acute medication for migraine?decreased Change in quality of life?better ER visits related to migraine?none Have at least three months elapsed since last treatment (Last botox date - frequency of injections) yes ??? frequent reported adverse reactions following injection of botox for chronic migraine include neck pain (9%), headache(5%), eyelid ptosis(4%), migraine(4%), muscular weakness(4%), musculuskeletal stiffness(4%), bronchitis(3%), injection site pain (3%, musculoskeletal pain(3%), myalgia(3%), facial paresis(2%), HTN(2%) and muscle spasms(2%) were discussed in detail. ??? Botulinum toxin typeA 200units Lot no [id number] expiration Nov 2027 was diluted with 4 cc of normal saline . ??? Muscles injected- ??? Frontalis 4 sites ??? Procerus 1 site ??? Office Coordinator- 2 sites ??? Temporalis- 8 sites ??? Occipitalis- 6 sites ??? Cervical paraspinals- 4 sites ??? 5 units each ??? Trapezius- 6 sites- 10units each ??? Total use- 185units ??? Discarded-15units ??? she was seen at [facility] for NBIA _MRI showing mineralizations of angelina basal ganglia and red nuclei her topiramate dose was increased 100mg bid, occipital nerve block was suggested [facility] Medical History Chronic migraine without aura, intractable, without status migrainosus Chronic migraine w/o aura w/o status migrainosus, not intractable Tourette syndrome Mentally challenged [place] (hard of hearing) Head ache Surgical History No pertinent past surgical history Social History Household Members Other:: MOTHER Alcohol intake: never Patient Tobacco Use Status: Never used Tobacco Current occupational status: unemployed Current occupation: [employer] Physical Exam Vital Signs: Last Vital Signs Pulse 93 07/14/25 12:52 BP 110/68 07/14/25 12:52 Pulse Ox 97 07/14/25 12:52 Oxygen Delivery Method Room Air 07/14/25 12:52 BMI result Body Mass Index 32.2 Const Other: Mild motor TICS Speech - slurred General: cooperative Orientation/consciousness: patient oriented x3 Neuro Other: neck - decreased range of motion and tightness General: patient oriented x3 Office Procedures Botulinum toxin Injection 36041 - Migraine Procedure code (CPT) selection complete Office Meds onabotulinumtoxinA 200 unit solution for injection Performing Provider: Shaniqua Mata MD Performing Location: [facility] Administered by: Shaniqua Mata MD on 07/14/25 13:27 2 Dose Route Admin Location Dispensed Lot Number Expiration Date [facility] Otr Tanker Truck Driver 185 unit subcut 200 units [id number] ALLERGAN /BOTOX Total Dispensed Waste 200 units 7.5 % Comments: see hpi Assessment & Plan Assessment & Plan (1) Chronic migraine without aura, intractable, without status migrainosus: Code(s): G43.719 - Chronic migraine without aura, intractable, without status migrainosus Category: Medical (2) Migraine with aura, intractable, without status migrainosus: Code(s): G43.119 - Migraine with aura, intractable, without status migrainosus Category: Medical (3) Tourette syndrome: Code(s): F95.2 - Tourette's disorder Category: Medical (4) 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
[2025-07-14 12:52] VITALS: BP 110/68; PULSE 93; O2SAT 97; BMI 32.2
--- OUTSIDE RECORDS SUMMARY | 2025-07-14 16:43 | XMS_ITS | Clinical Summary ---
Author Organization [facility] ity Address [id number] [place] [id number] Care Team Providers Care Battalion Fire Chief Name Role Phone Unavailable Primary Care Provider [...] Cervical Cancer Screening: P ap Smear 1997 Depression Screening 10/29/2024 COVID-19 Vaccine ( - 2023-2 5 season) 2025 Influenza Vaccine (#1) 2025 HIB Vaccines Aged [...]
--- OUTSIDE RECORDS SUMMARY | 2025-07-14 16:43 | XMS_ITS | Clinical Summary ---
Author Organization [facility] Address [address] [place] [address] Phone Care Team Providers Care Tape Controlled Machine Stitcher Name Role Phone Amy Jonas MD Primary [...] FOBT 2021 SIGMOIDOSCOPY 2021 VIRTUAL COLONOSCOPY 2021 INFLUENZA VACCINE (#1) 2025 , 06/30/2017 COVID-19 VACCINE (2024-2 6 season) 2025 03/29/2021, 02/26/2021, 02/05/2021 HEPATITIS A VACCINES Aged [...] topic Medical Devices [place] [id number] MEDICARE PART A & B [facility] MEDICARE PART A & B [place] [id number] MEDICARE PART A & B [facility] [place] [id number] MEDICARE PART A & B MEDICARE PART A & B Member Subscriber Plan / Payer ( fective 2002-Present) Name:Makeda Orellana Member ID:[id number] Relation to Subscriber:Self Name:Makeda Orellana Subscriber ID:[id number] Payer ID:[id number] Group ID:Not on file Type:Medicare Address: [employer] [address] [place] [address] [place] [address] MEDICARE PART A & B HEALTH MEDICARE PART A & B [address] [place] [address] [phone] MEDICARE PART A & B [id number] [place] [id number] MEDICARE PART A & B [facility] Care Teams Tape Controlled Machine Stitcher Relationship Specialty Start Date End Date Amy Jonas MD [address] [place] [address] [place] [address] PCP - General Internal Medicine 02/10/21 Additional Source Comments The information contained in this document represents components of the legal health record. It is not the complete legal health record.[facility]
--- OUTSIDE RECORDS SUMMARY | 2025-07-14 16:43 | XMS_ITS | Clinical Summary ---
Author Organization [facility] Address [address] [place] [address] Care Team Providers Care Environmental Services Supervisor Name Role Phone Amy Mcarthur Primary Care Provider [phone] Allergies Active Allergy Reactions Criticality Noted Date [...] - 19+ 3-dose series) 1995 Mammogram 2016 Alcohol/Substance Use Screening 10/29/2024 Depression Screening and Follow-Up 10/29/2024 Social Drivers of Health Annual Screening 10/29/2024 COVID-19 Vaccine (2024- season) 2025 08/10/2022, 03/29/2021, 02/26/2021, Additional history exists Influenza Vaccine (#1) 2025 07/24/2020, 2016 DTaP,Tdap,and Td Vaccines (2 - Td or Tdap) 03/16/2033 03/16/2023 RSV Vaccine (60+ years old and patients) (1 - 1-dose 75+ series) 2051 Pneumococcal Vaccine: Pediatric (0-5 Years) and At-Risk Patients (6-50 Years) Aged Out No longer eligible based on patient's age to complete this topic Insurance [facility] Advance Directives Healthcare Agents on File Name Relationship Healthcare Agent Relationshi p Communication Sara Esteban [facility] Health Care Agent Care Teams Environmental Services Supervisor Relationship Specialty Start Date End Date Amy Mcarthur [address] [address] PCP - General Internal Medicine 01/04/22
== END 2025-07-14 13:23 | disposition home or self-care (01) ==
LOC: HO.HSMS 12:47
PROVIDERS: PCP Internal Medicine; Visit Provider Psychiatry & Neurology Neurology
DX: G43.719 Chronic migraine without aura, intractable, without status migrainosus (principal); G43.709 Chronic migraine without aura, not intractable, without status migrainosus; F95.2 Tourette's disorder; G23.0 Hallervorden-Spatz disease
CPT/HCPCS: 64615

== ENCOUNTER → 2025-07-14 12:46 | Outpatient (BNVA) | payer MEDICARE, MEDICAID, SELFPAY | PROVIDERS: PCP Internal Medicine; Visit Provider Psychiatry & Neurology Neurology | DX: G43.719 Chronic migraine without aura, intractable, without status migrainosus (principal); F95.2 Tourette's disorder; G23.0 Hallervorden-Spatz disease | CPT/HCPCS: 64615; 99211; J0585 ==

== ENCOUNTER 2025-08-22 07:30 | Outpatient (REF) | payer MEDICARE, MEDICAID, SELFPAY ==
--- OUTSIDE RECORDS SUMMARY | 2025-08-22 07:33 | XMS_ITS | Clinical Summary ---
Author Organization [facility] Address [address] [place] [address] Phone Care Team Providers Care Instructional Design Manager Name Role Phone Amy Jonas MD Primary [...] [place] [id number] MEDICARE PART A & B [facility] MEDICARE PART A & B [place] [id number] MEDICARE PART A & B [facility] [place] [id number] MEDICARE PART A & B MEDICARE PART A & B Member Subscriber Plan / Payer ( fective 2002-Present) Name:Makeda Orellana Member ID:[id number] Relation to Subscriber:Self Name:Makeda Orellana Subscriber ID:[id number] Payer ID:[id number] Group ID:Not on file Type:Medicare Address: [email or web address] [address] [place] [address] [place] [address] MEDICARE PART A & B HEALTH MEDICARE PART A & [address] [place] [address] [address] MEDICARE PART A & B [id number] [place] [address] MEDICARE PART A & B [facility] Care Teams Instructional Design Manager Relationship Specialty Start Date End Date Amy Jonas MD [address] [place] [address] [place] [address] PCP - General Internal Medicine 02/10/21 Additional Source Comments The information contained in this document represents components of the legal health record. It is not the complete legal health record.[facility]
--- OUTSIDE RECORDS SUMMARY | 2025-08-22 07:33 | XMS_ITS | Clinical Summary ---
Author Organization [facility] Address [address] [place] [address] Care Team Providers Care Metal Engineering Process Worker Name Role Phone Amy Mcarthur Primary Care Provider [phone] Allergies Active Allergy Reactions Criticality Noted Date [...] patient's age to complete this topic Insurance [facility] Advance Directives Healthcare Agents on File Name Relationship Healthcare Agent Relationshi p Communication Sara Esteban [facility] Health Care Agent Care Teams Metal Engineering Process Worker Relationship Specialty Start Date End Date Amy Mcarthur [address] [address] PCP - General Internal Medicine 01/04/22
--- OUTSIDE RECORDS SUMMARY | 2025-08-22 07:33 | XMS_ITS | Clinical Summary ---
Author Organization [facility] ity Address [address] [place] [address] Care Team Providers Care Hot Mill Tin Roller Name Role Phone Unavailable Primary Care Provider [...] Smear 1997 Depression Screening 10/29/2024 COVID-19 Vaccine (1 - 2023-2 5 season) 2025 Influenza Vaccine (#1) 2025 RSV Immunization Adult Patie nts (1 - 1-dose 75+ series) 2051 HIB Vaccines Aged Out No longer eligi [...]
[2025-08-22 09:13] LABS: Thyroid Stimulating Hormone 3.77 uIU/mL (0.32-4.0)
== END 2025-08-22 07:31 | disposition home or self-care (01) ==
LOC: HO.LAB 07:30
PROVIDERS: PCP Internal Medicine; Visit Provider Internal Medicine
DX: F70 Mild intellectual disabilities (principal); E78.00 Pure hypercholesterolemia, unspecified; E03.8 Other specified hypothyroidism; I10 Essential (primary) hypertension
CPT/HCPCS: 36415; 84443

== ENCOUNTER 2025-09-16 14:39 | Outpatient (AMB) | payer MEDICARE, MEDICAID, SELFPAY ==
--- NOTE | 2025-09-16 14:43 | MHC.OFFVIS ---
Intake Visit Reasons: Left knee pain Intake Note: Makeda is a 49 year old female who presents with complaints of progressively worsening left knee pain. She describes her pain as sharp and severe in nature. Her pain has gotten worse over the last few years in spite of continued non operative treatments. She has had both cortisone injections and viscosupplementation injections. The most recent injections gave her minimal relief. She has tried physical therapy which aggravated her pain. The patient has difficulty walking even short distances because of her left knee pain. At this point her left knee pain is interfering with her activities of daily living and her ability to sleep well through the night. today as a follow up from her left knee Durolane injection, 06/11/25. Last gel injection didn't give her relief. Allergies Sulfa (Sulfonamide Antibiotics) (SULFA (SULFONAMIDE ANTIBIOTICS)) Allergy (Severe, Verified 07/14/25 12:51) HIVES potassium (Potassimin) Allergy (Intermediate, Verified 07/14/25 12:51) Unknown amoxicillin Allergy (Unknown, Verified 07/14/25 12:51) Unknown From AUGMENTIN Allergy (Severe, Uncoded 06/11/25 14:48) HIVES Medication List - Last Reconciled 09/16/25 by Yony Kilpatrick MD baclofen 10 mg PO TID citalopram 20 mg PO DAILY clonidine HCl 0.1 mg PO BID gabapentin 300 mg PO BEDTIME haloperidol 0.5 mg PO TID levothyroxine 50 mcg PO DAILY loratadine (Allergy Relief (loratadine)) 10 mg PO DAILY metoprolol succinate ER 50 mg PO DAILY naproxen 500 mg PO BID omeprazole 20 mg PO DAILY onabotulinumtoxinA (Botox) 200 units subcut .every 3 months pravastatin 40 mg PO DAILY topiramate 25 mg PO BID 30 days valsartan 160 mg PO BID [facility] Medical History Chronic migraine without aura, intractable, without status migrainosus Chronic migraine w/o aura w/o status migrainosus, not intractable Tourette syndrome Mentally challenged [place] (hard of hearing) Head ache Surgical History No pertinent past surgical history Social History Household Members Other:: MOTHER Alcohol intake: never Patient Tobacco Use Status: Never used Tobacco Current occupational status: unemployed Current occupation: [employer] Physical Exam Const Other: Well-nourished well-developed very friendly female awake alert and oriented x3 in no acute distress Extrem Other: Bilateral lower extremity examination shows good capillary refill, no skin lesions noted, normal sensation light touch Left knee examination shows a minimal effusion, palpable crepitus with range of motion, pain with range of motion, range of motion from -3 degrees to 115 degrees, no instability Results Reviewed Results Reviewed: X-rays of the patient's left knee taken previously show end-stage degenerative joint disease with grade 4 [id number] arthritis, subchondral sclerosis, osteophyte formation, no acute bony abnormalities Assessment & Plan Assessment & Plan (1) Osteoarthritis of left knee: Code(s): M17.12 - Unilateral primary osteoarthritis, left knee Category: Medical (2) Left knee pain: Code(s): M25.562 - Pain in left knee Plan Ms. Orellana presents with progressively worsening left knee pain due to end-stage degenerative joint disease. I had a lengthy discussion with the patient and her mother regarding the treatment options. At this point she has failed continued non operative treatments. The risks and benefits of left total knee replacement surgery were discussed at length with the patient. The patient is interested in proceeding with surgery early next year. She will be contacted to pick a surgery date. I will see her back prior to her surgery to answer any final questions that she might have. Feel free to call me at any time should questions regarding her orthopedic management arise. I spent 20 minutes in reviewing the patient's records and imaging studies, seeing the patient and documenting in the medical record. Orders: Referrals Pain Management Referral M17.12 - Unilateral primary osteoarthritis, left knee Coding Level of Care Code Est Pt Level 3 (92254) Complex EM visit Add On G2211 Diagnoses Osteoarthritis of left knee M17.12 Left knee pain M25.562
--- OUTSIDE RECORDS SUMMARY | 2025-09-17 03:12 | XMS_ITS | Clinical Summary ---
Author Organization [facility] Address [address] [place] [address] Phone Care Team Providers Care Door Liner Name Role Phone Amy Jonas MD Primary [...] patient's age to complete this topic IPV VACCINES Aged Out No longer eligi ble [...] topic Medical Devices [place] [address] MEDICARE PART A & B [facility] MEDICARE PART A & B [place] A [place] MED[place] [address] MEDICARE PART A & [place] [address] [place] [address] MEDICARE PART A & B [facility] [place] [id number] MEDICARE PART A & [place] [place] [id number] MEDICARE PART A & B [facility] MEDICARE PART A & B [facility] Care Teams Door Liner Relationship Specialty Start Date End Date Amy Jonas MD [address] [place] [address] [place] [address] PCP - General Internal Medicine 02/10/21 Additional Source Comments The information contained in this document represents components of the legal health record. It is not the complete legal health record.[facility]
--- OUTSIDE RECORDS SUMMARY | 2025-09-17 03:12 | XMS_ITS | Clinical Summary ---
Author Organization [facility] Address [address] [place] [address] Care Team Providers Care Rigger Apprentice Name Role Phone Amy Mcarthur Primary Care Provider [phone] Allergies Active Allergy Reactions Criticality Noted Date [...] 10/29/2024 Influenza Vaccine (#1) 2025 07/24/2020, 2016 COVID-19 Vaccine ( season) 2025 08/10/2022, 03/29/2021, 02/26/2021, Additional history exists DTaP,Tdap,and Td Vaccines (2 - Td or Tdap) 03/16/2033 03/16/2023 Pneumococcal Vaccine: Pediatric (0-5 Years) and At-Risk Patients (6-50 Years) Aged Out No longer eligible based on patient's age to complete this topic [place] [address] [place] [address] [facility] [place] [id number] Advance Directives Healthcare Agents on File Name Relationship Healthcare Agent [facility] Communication [facility] Health Care Agent Care Teams Rigger Apprentice Relationship Specialty Start Date End Date Amy Mcarthur [address] [facility] [address] [place] [address] PCP - General Internal Medicine 01/04/22
== END 2025-09-16 15:03 | disposition home or self-care (01) ==
LOC: HO.HOS 14:39
PROVIDERS: PCP Internal Medicine; Visit Provider Orthopaedic Surgery
DX: M17.12 Unilateral primary osteoarthritis, left knee (principal); M25.562 Pain in left knee
CPT/HCPCS: 99213; G2211

== ENCOUNTER → 2025-09-16 14:39 | Outpatient (BNVA) | payer MEDICARE, MEDICAID, SELFPAY | PROVIDERS: PCP Internal Medicine; Visit Provider Orthopaedic Surgery | DX: M25.562 Pain in left knee (principal); M17.12 Unilateral primary osteoarthritis, left knee | CPT/HCPCS: 99212 ==